=== PATIENT | male | born 1945 | race Caucasian/White ===

== ENCOUNTER 2016-06-06 09:30 | Outpatient (CLI) | payer MEDICARE, BC | END 2016-06-06 09:31 | disposition home or self-care (01) | DX: Z00.00 Encounter for general adult medical examination without abnormal findings (principal); E55.9 Vitamin D deficiency, unspecified; E78.5 Hyperlipidemia, unspecified; R73.9 Hyperglycemia, unspecified; Z79.890 Hormone replacement therapy ==

== ENCOUNTER 2016-10-13 08:26 | Outpatient (CLI) | payer MEDICARE, BC ==
[2016-10-13 11:23] LABS: CHOL/HDL RATIO 3.6 (<5.0); CHOLESTEROL 197 mg/dL; GLUCOSE 114 mg/dL (70-100); HDL CHOLESTEROL 55 mg/dL; LDL/HDL RATIO 2.4 (<3.6); TRIGLYCERIDES 60 mg/dL; VLDL CHOLESTEROL 12 mg/dL
== END 2016-10-13 08:27 | disposition home or self-care (01) ==
LOC: LAB.F 08:26
PROVIDERS: ATTEND Internal Medicine
DX: E78.5 Hyperlipidemia, unspecified (principal)
CPT/HCPCS: 36415; 80061; 82947

== ENCOUNTER 2017-09-07 16:48 | Outpatient (CLI) | payer MEDICARE, BC ==
--- NOTE | 2017-09-08 11:54 | XRAY Report ---
TWO VIEW ABDOMEN: 09/07/2017 CLINICAL INDICATION: Constipation. FINDINGS: Supine and upright views of the abdomen demonstrate no evidence of bowel obstruction. No small bowel dilatation is present. No free intraperitoneal gas is seen. No abnormal calcifications are appreciated overlying either renal shadow. IMPRESSION: NO EVIDENCE OF BOWEL OBSTRUCTION OR PERFORATION. TD: 09/08/2017 11:53
== END 2017-09-07 16:49 | disposition home or self-care (01) ==
LOC: DI 16:48
PROVIDERS: ATTEND Internal Medicine
DX: K59.00 Constipation, unspecified (principal)
CPT/HCPCS: 74019

== ENCOUNTER 2018-08-08 15:29 | Outpatient (CLI) | payer MEDICARE, BC ==
--- NOTE | 2018-08-09 10:23 | XRAY Report ---
Reason: OSTEOARTHRITIS Procedure Date: 08/08/2018 Accession Number: [id number] / [id number] Procedure: XR - Knee 2 View BILAT CPT Code: FULL RESULT: EXAMS: 1. Right Knee Radiography 2. Left Knee Radiography EXAM DATE: 08/08/2018 03:58 PM. CLINICAL HISTORY: Osteoarthritis. COMPARISON: None. TECHNIQUE: 3 views each. FINDINGS: Right Knee: Bones: Normal. No fractures or bone lesions. Joints: Small right joint effusion, no subluxation. Moderate narrowing of the medial weightbearing compartment. Soft Tissues: Normal. No soft tissue swelling. Left Knee: Bones: Normal. No fractures or bone lesions. Joints: Normal. No effusion. No subluxations. Soft Tissues: Normal. No soft tissue swelling. IMPRESSION: Moderate narrowing of the medial right weightbearing compartment with small joint effusion. RADIA
== END 2018-08-08 15:30 | disposition home or self-care (01) ==
LOC: DI 15:29
PROVIDERS: ATTEND Internal Medicine
DX: M17.0 Bilateral primary osteoarthritis of knee (principal); M25.461 Effusion, right knee
CPT/HCPCS: 73565

== ENCOUNTER 2019-03-21 10:05 | Outpatient (CLI) | payer MEDICARE, BC | END 2019-03-21 10:06 | disposition home or self-care (01) | LOC: LAB 10:05 | PROVIDERS: ATTEND Internal Medicine | DX: D72.829 Elevated white blood cell count, unspecified (principal); C91.10 Chronic lymphocytic leukemia of B-cell type not having achieved remission | CPT/HCPCS: 36415; 81599 ==

== ENCOUNTER 2021-10-05 10:26 | Outpatient (CLI) | payer MEDICARE, BC ==
--- NOTE | 2021-10-05 11:29 | SLEEP CARE CONSULTATION ---
Information from patient questionnaire entered by Marina Villa MA. I have reviewed and concur with the information entered by Marina Villa MA. This document represents the service I personally performed and the decisions made by me, Peggy Kelly ARNP. History of Present Illness Service Date and Time: 10/05/2021 1026 Reason for Visit: New patient (ONSET 09/12/21, NO PRIORS, ) Chief Complaint: reports: Unrefreshed sleep, Snoring, Excessive daytime sleepin ess, Fatigue, Other (Since CLL diagnosis in Mar 2019) Date of Onset: MAR 2019 Usual bedtime: 900 - 1000 PM Time it takes to fall asleep: FAST; few minutes Snores at night: Yes Observed to quit breathing while asleep: Yes (jagged breathing when snoring, sleeping on back) Sleeps alone due to snoring: No (rarely, but it happens) Number of times waking at night: 2-3 to urinate Reasons for waking at night: reports: Gasping for air (has felt a catch in his breath when waking up), Bathroom. denies: Choking, Snoring Toss, Turn, or Twitch while sleeping: Yes Recalls having dreams: Yes Usually gets out of bed at: [id number] Feels refreshed in the morning: Yes (sort of) Morning headache: No Sleepy or fatigued during the day: Yes Ever fallen asleep while driving: No Takes day naps: Yes (daily for about an hour) Dreams during day naps: Yes Prior sleep studies: No Additional HPI information: I had the pleasure of seeing BRITTANIE ALVARADO today regarding the possibility of him having a sleep disorder. His current complaints are unrefreshed sleep, excessive daytime sleepiness, snoring and fatigue. He has history of CLL. He was discussing his daytime fatigue with his oncologist and they felt he should have further evaluation. He states that he is always tired in the afternoons and has a history of snoring. He naps every afternoon for about an hour or less. He does not wake up to alarms and usually feels rested in the morning. He states not as "perky" in the morning as when he was younger. - Parasomnia Symptoms Ever been unable to move upon waking from sleep: No Walks in sleep: No Talks in sleep: No Ever acted out dreams in sleep: No Ever felt weak in the knees when startled or emotional: No Bothered by creepy, crawly, restless sensations in legs: No Problems with memory or concentration: Yes (memory mostly) Subjective Initial Lisle Sleepiness Scale score: 8 (09/2021) Past Medical History Past Medical History: reports: Hypertension, Impotence, Depression, Other (Chronic lymphocytic leukemia) Social History The patient's occupation is a RE. Patient is and lives in [place]. Have you smoked in the past 12 months: No Alcohol use: Yes Alcohol amount and frequency: 2 X DAILY Caffeine use: Yes Caffeine amount and frequency: 2 X DAILY Family History Family history of sleep disordered breathing: No Allergies and Home Medications Known drug allergies: No Home medication list reviewed: Yes (NKDA) Allergy and home medication list: Allergies No Known Drug Allergies Allergy (Verified 11/30/20 15:25) Medications: Losartan Naltrexone, low dose Review of Systems Weight gain over past 5 years: 5 lb Cardiovascular: reports: high blood pressure Respiratory: reports: shortness of breath Urinary: reports: frequency (2x night) Psychiatric: reports: depression (light) Ear/Nose/Throat: reports: nasal congestion (@night) Endocrine: reports: sluggishness Musculoskeletal: reports: muscle pain or cramping (cramping occasionally) Immunologic: reports: allergies to food or environment (maybe seasonal), other (runny nose) Physical Exam Vital signs obtained and entered by: Jayme VILLA CMA AAJASON Blood Pressure: 141/80 (RESP 18, PULSE 75, RIGHT) Cuff size: wrist Heart Rate: 77 O2 Saturation: 98 (N95) Height: 6 ft Weight: 205 lb 8 oz (WITH CLOTHES) Body Mass Index: 27.8 BMI Classification: Overweight Neck circumference: 15 (INCHES) Mouth and throat: narrow oropharynx Soft palate: long Hard palate: normal Uvula: normal Uvula visualization: 25% Mallampati Class III Tongue: enlarged in size with teeth courtney on lateral edges Tonsils: absent bilaterally Neck: normal w/o lymphadenopathy or thyromegaly Heart: regular rate and rhythm Lungs: clear bilaterally Impression and Plan 1. Suspected Obstructive Sleep Apnea-Hypopnea Syndrome, as suggested by a history of loud and irregular snoring, gasping or choking in sleep, unrefreshed sleep, cognitive impairment, and excessive daytime sleepiness. Narrow oropharynx and obesity are common predisposing factors for obstructive sleep apnea-hypopnea syndrome. I recommend proceeding to polysomnography to confirm the diagnosis and to assess severity. If the patient has significant sleep disordered breathing, a manual CPAP titration study will also be performed to find the optimal treatment pressure. I informed the patient of what the sleep studies involve and after some discussion, obtained agreement to proceed. The pathophysiology of obstructive sleep apnea-hypopnea syndrome was discussed with the patient and health risks of cardiovascular and cerebrovascular disease if not treated. Risks of drowsy driving discussed in detail and patient advised to avoid long distance driving and to hand assembler for puller over at the first sign of drowsiness. Patient agreed to plan. * Schedule polysomnography * Avoid long distance driving or driving when feeling sleepy. * Avoid alcohol, sedative and muscle relaxant around bedtime. * Attempt to lose weight. * Review instructions provided by trained office staff on how to prepare for the sleep study. * Return for follow-up after sleep study completed. Counseling Topics: Weight loss health impact Visit Type: In Office Time Spent with Patient (minutes): 44 Provider Statement: I spent 100% of the Face to Face Visit with the patient with greater than 50% spent counseling the patient and coordination of care.
[2021-10-05 11:30] VITALS: BP 141/80
== END 2021-10-05 10:27 | disposition home or self-care (01) ==
LOC: SC 10:26
PROVIDERS: ATTEND Nurse Practitioner Family
DX: G47.10 Hypersomnia, unspecified (principal); R06.81 Apnea, not elsewhere classified; G47.8 Other sleep disorders; R41.89 Other symptoms and signs involving cognitive functions and awareness; R06.83 Snoring
CPT/HCPCS: 99203; G0463; 99212

== ENCOUNTER 2022-06-20 09:38 | Outpatient (CLI) | payer MEDICARE, OTHER ==
[2022-06-20 10:27] LABS: BASOPHILS # (AUTO) 0.1 10^3/uL (0.0-0.1); BASOPHILS % (AUTO) 0.2 %; EOSINOPHILS # (AUTO) 0.1 10^3/uL (0.0-0.7); EOSINOPHILS % (AUTO) 0.3 %; HCT - HEMATOCRIT 39.6 % (42.0-52.0); LYMPHOCYTES # (AUTO) 15.4 10^3/uL (1.5-3.5); LYMPHOCYTES % (AUTO) 57.5 %; MEAN CORPUSCULAR HEMOGLOBIN 30.7 pg (27.0-31.0); MEAN CORPUSCULAR HGB CONC 32.8 g/dL (32.0-36.0); MEAN CORPUSCULAR VOLUME 93.4 fL (80.0-94.0); MEAN PLATELET VOLUME 10.4 fL (7.4-11.4); MONOCYTES # (AUTO) 3.3 10^3/uL (0.0-1.0); MONOCYTES % (AUTO) 12.2 %; NEUTROPHILS # (AUTO) 7.9 10^3/uL (1.5-6.6); NEUTROPHILS % (AUTO) 29.5 %; PLT - PLATELET COUNT 180 10^3/uL (130-450); RED BLOOD COUNT 4.24 10^6/uL (4.70-6.10); RED CELL DISTRIBUTION WIDTH 13.2 % (12.0-15.0); WHITE BLOOD COUNT 26.7 x10^3/uL (4.8-10.8)
[2022-06-20 10:43] LABS: ALBUMIN 3.9 g/dL (3.2-5.5); ALBUMIN/GLOBULIN RATIO 1.1 (1.0-2.2); ALKALINE PHOSPHATASE 64 IU/L (42-121); ALT ALANINE AMINOTRANSFERASE 29 IU/L (10-60); AST ASPARTATE AMINOTRANSFERASE 26 IU/L (10-42); BILIRUBIN,TOTAL 1.8 mg/dL (0.2-1.0); BUN - BLOOD UREA NITROGEN 21 mg/dL (6-20); CALCIUM 9.5 mg/dL (8.5-10.3); CARBON DIOXIDE - CO2 24 mmol/L (21-32); CHLORIDE 99 mmol/L (101-111); CHOL/HDL RATIO 3.1 (<5.0); CHOLESTEROL 173 mg/dL; CRP HIGH SENSITIVITY 55.9 mg/L; GAMMA GLUTAMYL TRANSPEPTIDASE 22 IU/L (8-55); GFR - MDRD 72 (>89); GLUCOSE 125 mg/dL (70-100); HDL CHOLESTEROL 56 mg/dL; LDL CHOLESTEROL,CALCULATED 107 mg/dL; LDL/HDL RATIO 1.9 (<3.6); POTASSIUM 4.4 mmol/L (3.5-5.0); SODIUM 135 mmol/L (135-145); TOTAL PROTEIN 7.6 g/dL (6.7-8.2); TRIGLYCERIDES 49 mg/dL; VLDL CHOLESTEROL 10 mg/dL
[2022-06-20 10:56] LABS: FREE T3 2.83 pg/mL (2.5-3.9)
[2022-06-20 11:01] LABS: FERRITIN 132.2 ng/mL (23.9-336.2)
[2022-06-20 11:08] LABS: DIFFERENTIAL COMMENT MANUAL=AUTO DIFF
[2022-06-20 12:28] LABS: ESTIMATED AVERAGE GLUCOSE 123 mg/dL (70-100); HEMOGLOBIN A1c% 5.9 % (4.27-6.07)
[2022-06-21 07:10] LABS: INSULIN 19.4 uIU/mL (2.6-24.9)
[2022-06-21 08:10] LABS: CERULOPLASMIN 29.1 mg/dL (16.0-31.0)
[2022-06-21 11:09] LABS: CYTOMEGALOVIRUS (CMV) AB IGG <0.60 U/mL (0.00-0.59); CYTOMEGALOVIRUS (CMV) AB IGM <30.0 AU/mL (0.0-29.9); EBV AB VCA IGG >600.0 U/mL (0.0-17.9); EBV AB VCA IGM <36.0 U/mL (0.0-35.9); EBV NUCLEAR ANTIGEN AB IGG <18.0 U/mL (0.0-17.9)
[2022-06-22 01:07] LABS: VITAMIN D 25-HYDROXY 58.2 ng/mL (30.0-100.0)
[2022-06-22 14:09] LABS: THYROGLOBULIN ANTIBODY <1.0 IU/mL (0.0-0.9); THYROID PEROXIDASE (TPO) AB <9 IU/mL (0-34)
[2022-06-22 19:07] LABS: COPPER SERUM OR PLASMA 133 ug/dL (69-132); ZINC PLASMA OR SERUM 80 ug/dL (44-115)
[2022-06-25 18:07] LABS: VITAMIN A SERUM 49.9 ug/dL (22.0-69.5)
[2022-06-27 15:08] LABS: REVERSE T3 SERUM 21.5 ng/dL (.)
== END 2022-06-20 09:39 | disposition home or self-care (01) ==
LOC: LAB 09:38
DX: C91.10 Chronic lymphocytic leukemia of B-cell type not having achieved remission (principal); R53.83 Other fatigue; E55.9 Vitamin D deficiency, unspecified; R79.9 Abnormal finding of blood chemistry, unspecified; E11.9 Type 2 diabetes mellitus without complications; I10 Essential (primary) hypertension; C43.9 Malignant melanoma of skin, unspecified; R41.89 Other symptoms and signs involving cognitive functions and awareness; K58.9 Irritable bowel syndrome, unspecified; E78.5 Hyperlipidemia, unspecified
CPT/HCPCS: 36415; 80053; 80061; 81599; 82306; 82390; 82525; 82542; 82728; 82777; 82977; 83036; 83090; 83525; 83615; 83721; 84305; 84443; 84481; 84482; 84590; 84630; 85025; 85379; 85384; 85651; 86141; 86376; 86644; 86645; 86664; 86665; 86800

== ENCOUNTER 2022-08-01 13:32 | Outpatient (CLI) | payer MEDICARE, OTHER | END 2022-08-01 13:33 | disposition home or self-care (01) | LOC: LAB.S 13:32 | PROVIDERS: ATTEND General Practice | DX: I10 Essential (primary) hypertension (principal); C43.9 Malignant melanoma of skin, unspecified; E11.9 Type 2 diabetes mellitus without complications | CPT/HCPCS: 36415 ==

== ENCOUNTER 2022-08-23 09:59 | Outpatient (CLI) | payer MEDICARE, OTHER ==
[2022-08-23 10:45] LABS: BASOPHILS % (AUTO) 0.2 %; EOSINOPHILS % (AUTO) 0.6 %; HCT - HEMATOCRIT 39.1 % (42.0-52.0); HGB - HEMOGLOBIN 13.1 g/dL (14.0-18.0); LYMPHOCYTES % (AUTO) 74.3 %; MEAN CORPUSCULAR HEMOGLOBIN 30.1 pg (27.0-31.0); MEAN CORPUSCULAR HGB CONC 33.5 g/dL (32.0-36.0); MEAN CORPUSCULAR VOLUME 89.9 fL (80.0-94.0); MEAN PLATELET VOLUME 11.2 fL (7.4-11.4); MONOCYTES % (AUTO) 9.5 %; NEUTROPHILS % (AUTO) 15.3 %; PLT - PLATELET COUNT 144 10^3/uL (130-450); RED BLOOD COUNT 4.35 10^6/uL (4.70-6.10); RED CELL DISTRIBUTION WIDTH 13.1 % (12.0-15.0); WHITE BLOOD COUNT 21.6 x10^3/uL (4.8-10.8)
[2022-08-23 10:53] LABS: ABNORMAL LYMPHS % (MANUAL) 0 %; BAND NEUTROPHILS % (MANUAL) 0 %
[2022-08-23 10:57] LABS: ALBUMIN 4.3 g/dL (3.2-5.5); ALBUMIN/GLOBULIN RATIO 1.5 (1.0-2.2); BILIRUBIN,TOTAL 1.1 mg/dL (0.2-1.0); CALCIUM 9.2 mg/dL (8.5-10.3); CREATININE 1.1 mg/dL (0.6-1.2); CRP HIGH SENSITIVITY 1.5 mg/L; POTASSIUM 4.5 mmol/L (3.5-5.0); TOTAL PROTEIN 7.2 g/dL (6.7-8.2)
[2022-08-23 11:09] LABS: EOSINOPHILS # (MANUAL) 0.4 10^3/uL (0-0.7); LYMPHOCYTES # (MANUAL) 17.7 10^3/uL (1.5-3.5); LYMPHOCYTES % (MANUAL) 59 %; MONOCYTES # (MANUAL) 0.2 10^3/uL (0.0-1.0); NEUTROPHILS # (MANUAL) 3.2 10^3/uL (1.5-6.6); REACTIVE LYMPHS % (MANUAL) 23 %
[2022-08-23 11:10] LABS: DIFFERENTIAL COMMENT MANUAL DIFFERENTIAL; RBC MORPHOLOGY (MULTIPLE) 1+ ANISOCYTOSIS (NORMAL)
[2022-08-23 11:16] LABS: THYROID STIMULATING HORMONE 2.41 uIU/mL (0.34-5.60)
[2022-08-23 11:18] LABS: FREE T4 (FREE THYROXINE) 0.89 ng/dL (0.58-1.64)
[2022-08-23 11:21] LABS: FERRITIN 130.8 ng/mL (23.9-336.2)
[2022-08-23 11:38] LABS: ESTIMATED AVERAGE GLUCOSE 111 mg/dL (70-100); HEMOGLOBIN A1c% 5.5 % (4.27-6.07)
[2022-08-24 04:08] LABS: VITAMIN D 25-HYDROXY 56.8 ng/mL (30.0-100.0)
[2022-08-24 07:10] LABS: INSULIN 12.3 uIU/mL (2.6-24.9)
[2022-08-24 08:10] LABS: CERULOPLASMIN 23.9 mg/dL (16.0-31.0)
[2022-08-31 12:09] LABS: REVERSE T3 SERUM 25.8 ng/dL (.)
[2022-09-01 19:07] LABS: 1,25-DIHYDROXY VITAMIN D-2 <10 pg/mL (.); 1,25-DIHYDROXY VITAMIN D-3 26 pg/mL (.); TOTAL 1,25-DIHYDROXYVITAMIN D 27 pg/mL (.)
[2022-09-03 14:08] LABS: VITAMIN A SERUM 44.4 ug/dL (22.0-69.5)
== END 2022-08-23 10:00 | disposition home or self-care (01) ==
LOC: LAB 09:59
PROVIDERS: ATTEND General Practice
DX: C91.10 Chronic lymphocytic leukemia of B-cell type not having achieved remission (principal); I10 Essential (primary) hypertension; C43.9 Malignant melanoma of skin, unspecified; R41.89 Other symptoms and signs involving cognitive functions and awareness; K58.9 Irritable bowel syndrome, unspecified; E78.5 Hyperlipidemia, unspecified; D68.9 Coagulation defect, unspecified; R53.83 Other fatigue; E55.9 Vitamin D deficiency, unspecified; R79.9 Abnormal finding of blood chemistry, unspecified; E11.9 Type 2 diabetes mellitus without complications
CPT/HCPCS: 36415; 80053; 81599; 82306; 82390; 82525; 82652; 82728; 82977; 83036; 83090; 83525; 83615; 83625; 84305; 84439; 84443; 84482; 84590; 84630; 85025; 85379; 85384; 85651; 86141

== ENCOUNTER 2022-09-30 13:54 | Outpatient (CLI) | payer MEDICARE, OTHER ==
[2022-09-30 14:23] LABS: BASOPHILS % (AUTO) 0.2 %; EOSINOPHILS % (AUTO) 0.4 %; HCT - HEMATOCRIT 38.6 % (42.0-52.0); HGB - HEMOGLOBIN 12.7 g/dL (14.0-18.0); LYMPHOCYTES % (AUTO) 63.2 %; MEAN CORPUSCULAR HGB CONC 32.9 g/dL (32.0-36.0); MEAN PLATELET VOLUME 10.8 fL (7.4-11.4); MONOCYTES % (AUTO) 13.6 %; NEUTROPHILS % (AUTO) 22.4 %; PLT - PLATELET COUNT 194 10^3/uL (130-450); RED BLOOD COUNT 4.24 10^6/uL (4.70-6.10); RED CELL DISTRIBUTION WIDTH 13.3 % (12.0-15.0); WHITE BLOOD COUNT 22.9 x10^3/uL (4.8-10.8)
[2022-09-30 14:33] LABS: ALBUMIN 4.3 g/dL (3.2-5.5); ALBUMIN/GLOBULIN RATIO 1.3 (1.0-2.2); BILIRUBIN,TOTAL 1.1 mg/dL (0.2-1.0); CALCIUM 9.4 mg/dL (8.5-10.3); POTASSIUM 4.6 mmol/L (3.5-5.0); TOTAL PROTEIN 7.6 g/dL (6.7-8.2)
[2022-09-30 14:37] LABS: ABNORMAL LYMPHS % (MANUAL) 0 %; BAND NEUTROPHILS % (MANUAL) 0 %
[2022-09-30 14:46] LABS: T4 (THYROXINE) 6.98 ug/dL (6.09-12.23)
[2022-09-30 14:50] LABS: THYROID STIMULATING HORMONE 2.37 uIU/mL (0.34-5.60)
[2022-09-30 14:53] LABS: BASOPHILS # (MANUAL) 0.2 10^3/uL (0-0.1); BASOPHILS % (MANUAL) 1 %; DIFFERENTIAL COMMENT MANUAL DIFFERENTIAL; LYMPHOCYTES # (MANUAL) 15.8 10^3/uL (1.5-3.5); LYMPHOCYTES % (MANUAL) 69 %; MONOCYTES # (MANUAL) 2.5 10^3/uL (0.0-1.0); NEUTROPHILS # (MANUAL) 4.4 10^3/uL (1.5-6.6); PLATELET ESTIMATE, MANUAL NORMAL (130-450,000) (NORMAL); PLATELET MORPHOLOGY NORMAL APPEARANCE (NORMAL); RBC MORPHOLOGY (MULTIPLE) NORMAL APPEARANCE (NORMAL)
[2022-09-30 21:14] LABS: ESTIMATED AVERAGE GLUCOSE 114 mg/dL (70-100); HEMOGLOBIN A1c% 5.6 % (4.27-6.07)
[2022-10-01 06:10] LABS: CERULOPLASMIN 26.2 mg/dL (16.0-31.0)
[2022-10-01 07:09] LABS: INSULIN 13.2 uIU/mL (2.6-24.9)
[2022-10-11 22:07] LABS: REVERSE T3 SERUM 24.7 ng/dL (.)
== END 2022-09-30 13:55 | disposition home or self-care (01) ==
LOC: LAB 13:54
PROVIDERS: ATTEND General Practice
DX: E11.9 Type 2 diabetes mellitus without complications (principal); C91.10 Chronic lymphocytic leukemia of B-cell type not having achieved remission; C43.9 Malignant melanoma of skin, unspecified; R53.83 Other fatigue; E55.9 Vitamin D deficiency, unspecified; R79.9 Abnormal finding of blood chemistry, unspecified; I10 Essential (primary) hypertension; R41.89 Other symptoms and signs involving cognitive functions and awareness; E78.5 Hyperlipidemia, unspecified; D68.9 Coagulation defect, unspecified; K58.9 Irritable bowel syndrome, unspecified
CPT/HCPCS: 36415; 80053; 81599; 82306; 82390; 82525; 82777; 82977; 83036; 83090; 83525; 83615; 84305; 84436; 84443; 84480; 84482; 84630; 85025; 85379; 85384; 85651; 86141

== ENCOUNTER 2022-10-26 13:28 | Outpatient (CLI) | payer MEDICARE, OTHER ==
--- NOTE | 2022-10-26 13:25 | SLEEP CARE CONSULTATION ---
Information from patient questionnaire entered by Jeannine Myers. I have reviewed and concur with the information entered by Jeannine Myers. This document represents the service I personally performed and the decisions made by me, Peggy Kelly ARNP. History of Present Illness Service Date and Time: 10/26/2022 1300 Reason for follow up: other (F/U SLEEP STUDY NEVER DONE) Prior sleep studies: No HPI additional information: I had the pleasure of seeing BRITTANIE ALVARADO via telehealth visit today regarding the possibility of him having a sleep disorder. He was last seen in 09/2021 and a sleep study was ordered but not completed. He has a history of hypertension and depression. His current complaints are unrefreshed sleep, snoring, fatigue and excessive daytime sleepiness. The patient tells me that he normally goes to bed around 9:30 pm, and it takes him approximately few minutes to fall asleep. He has been told that he snores irregularly at night. He has not been observed to stop breathing in his sleep. He sometimes feels there is a catch in his breath. His bed partner can still sleep in the same bed. He can recall waking up on the average of 2-3 times during the night. Most of the time he wakes up because of bathroom needs. He has not awakened for his own snoring, choking, and having to gasp for air. There is not a lot of tossing and turning in his sleep. Generally he can recall having dreams. He usually wakes up at 07-0730 and feels refreshed. He usually does not have a morning headache. During the day he complains of feeling sleepy and fatigued. He has never fallen asleep while driving nor has any accident due to sleepiness. He usually naps for about 60 minutes during the day. If he naps, upon falling asleep during the day he admits to having vivid dreams. There is no somniloquy (sleep talking) or somnambulism (sleep walking). He has never experienced sleep paralysis, cataplexy. He has restless legs at night and he has been prescribed Gabapentin. He denies having impaired concentration during the day. Sleep Study - Results Prior sleep studies: No Subjective Initial Decker Sleepiness Scale score: 8 (09/2021) Current Decker Sleepiness Scale score: 3 Allergies and Home Medications Known drug allergies: No Drug allergies reviewed: Yes Home medication list reviewed: Yes (Gabapentin) Allergy and home medication list: Allergies No Known Drug Allergies Allergy (Verified 10/25/22 22:00) Review of Systems Review of systems same as previous: No (RLS) Physical Exam Vital signs obtained and entered by: Peggy Husain NP Height: 6 ft Weight: 189 lb (per pt) Body Mass Index: 25.6 BMI Classification: Overweight Impression and Plan 1. Suspected Obstructive Sleep Apnea-Hypopnea Syndrome, as suggested by a history of loud and irregular snoring, unrefreshed sleep, and excessive daytime sleepiness. I recommend proceeding to polysomnography to confirm the diagnosis and to assess severity. If the patient has significant sleep disordered breathing, a manual CPAP titration study will also be performed to find the optimal treatment pressure. I informed the patient of what the sleep studies involve and after some discussion, obtained agreement to proceed. The pathophysiology of obstructive sleep apnea-hypopnea syndrome was discussed with the patient and health risks of cardiovascular and cerebrovascular disease if not treated. Risks of drowsy driving discussed in detail and patient advised to avoid long distance driving and to pull through hooker at the first sign of drowsiness. Patient agreed to plan. * Schedule polysomnography +- manual CPAP titration study and return in 1-2 weeks after the study to discuss result and initiate therapy. * Avoid long distance driving or driving when feeling sleepy. * Avoid alcohol, sedative and muscle relaxant around bedtime. * Attempt to lose weight. * Review instructions provided by trained office staff on how to prepare for the sleep study. * Return for follow-up after sleep study completed. Counseling Topics: Weight loss health impact Visit Type: Telehealth Phone Video Type: [facility] Patient Location: Home Location of Provider: Office Patient agrees and consents to this telehealth visit type: Yes Patient agrees to have their insurance billed: Yes Time Spent with Patient (minutes): 24 Provider Statement: I spent 100% of the Telehealth Phone Call with the patient with greater than 50% spent counseling the patient and coordination of care.
== END 2022-10-26 13:29 | disposition home or self-care (01) ==
LOC: SC 13:28
PROVIDERS: ATTEND Nurse Practitioner Family
DX: G47.10 Hypersomnia, unspecified (principal); R06.83 Snoring; G47.8 Other sleep disorders; R53.83 Other fatigue; I10 Essential (primary) hypertension; E66.3 Overweight; Z68.25 Body mass index [BMI] 25.0-25.9, adult

== ENCOUNTER 2022-11-16 19:16 | Outpatient (CLI) | payer MEDICARE, OTHER | END 2022-11-16 19:17 | disposition home or self-care (01) | LOC: SC 19:16 | PROVIDERS: ATTEND Nurse Practitioner Family | DX: G47.33 Obstructive sleep apnea (adult) (pediatric) (principal); G47.61 Periodic limb movement disorder | CPT/HCPCS: 95810 ==

== ENCOUNTER 2022-11-22 13:36 | Outpatient (CLI) | payer MEDICARE, OTHER ==
--- NOTE | 2022-11-22 13:34 | SLEEP CARE CONSULTATION ---
Information from patient questionnaire entered by Jeannine Myers. I have reviewed and concur with the information entered by Jeannine Myers. This document represents the service I personally performed and the decisions made by me, Peggy Kelly ARNP. History of Present Illness Service Date and Time: 11/22/2022 1300 Accompanied by: Spouse (via [employer]) Initial Cardington Sleepiness Scale score: 8 (09/2021) Current Cardington Sleepiness Scale score: 3 (11/22/22) Additional HPI information: BRITTANIE ALVARADO returns via video telehealth vist for follow up and results of the recently performed polysomnography. His sleep study showed moderate obstructive sleep apnea with an average AHI of 25.7 and marcia oxygen saturation of 79%. He also had mild periodic leg movements of sleep. I explained the pathophysiology behind obstructive sleep apnea. We then spent quite a bit of time discussing different treatment options. For mild obstructive sleep apnea, surgery and oral appliance are alternatives to nasal CPAP therapy but in moderate or severe cases, nasal CPAP is the most effective and reliable treatment. I reviewed the impact of weight changes on sleep apnea and strongly recommended losing weight. After some discussion, the patient opted to go with the nasal CPAP therapy. Nasal autoCPAP set at 4-15 cmH20 will be ordered with rationale explained. A manual titration study will be ordered if unable to find optimal pressure with office adjustments. I explained how CPAP machine works and what to expect when using the machine. Using CPAP every night in order to get used to it was emphasized. Patient a dvised to put CPAP mask on before getting into bed so as not to fall asleep without CPAP. To assist acclimation to CPAP use, it could also be used for a short time during day while reading or watching TV. The patient was instructed to call the CPAP supplier to discuss any mechanical problem that may occur. If the mask given is uncomfortable or is difficult to keep on through the night even with adjustment, contact the CPAP supplier as many will replace with another mask style if notified before 30 days. If snoring or perceives is not getting enough air or too much air from the machine, notify this office. Patient was cautioned about risks of drowsy driving until sleepiness symptoms resolve. Sleep Study - Results Type of Sleep Study: Polysomnography (COMPLETED 11/16/22) Prior sleep studies: No Polysomnography/Home Sleep Study results: IMPRESSION: The quality of the study is good. The patient had normal sleep efficiency. The sleep architecture was abnormal for sleep fragmentation and lack of slow wave sleep (N3). Respiratory monitoring showed moderate obstructive sleep apnea-hypopnea (AHI = 25.7) associated with frequent arousals, oxyhemoglobin desaturation and moderate hypoxia (marcia oxygen saturation of 79%). The patient only slept supine during this study (supine AHI = 25.7; non-supine = 0.00). Snore was loud in intensity. There was mild periodic leg movement of sleep not contributing to the sleep fragmentation. Cardiac rhythm was normal sinus rhythm without significant arrhythmia. No abnormal behavior (parasomnia) observed during the night. Allergies and Home Medications Known drug allergies: No Drug allergies reviewed: Yes Home medication list reviewed: Yes (no changes) Allergy and home medication list: Allergies No Known Drug Allergies Allergy (Verified 11/22/22 09:10) Review of Systems Review of systems same as previous: Yes (no changes) Physical Exam Vital signs obtained and entered by: JEANNINE Ho MA Height: 6 ft (PER PT) Weight: 188 lb (PER PT) Body Mass Index: 25.4 BMI Classification: Overweight Impression and Plan 1. Obstructive Sleep Apnea-Hypopnea Syndrome, moderate, with lowest oxygen saturation of 79%. Obviously this is the cause of the patients symptoms of unrefreshed sleep, and excessive daytime sleepiness. Positive pressure therapy could benefit hypertension and depression. As mentioned above, the patient will be started on nasal autoCPAP therapy with pressure set at 4-15 cmH2O. A manual titration study will be completed if unable to find optimal treatment pressure with office adjustments. Compliance guidelines also reviewed. A copy of com pliance guidelines will be given for reference at check out. 2. Hypoxemia, mild, with a marcia oxygen saturation of 79% and 6.2 minutes spent under 90%. His baseline oxygen saturation was normal with an average oxygen saturation of 96%. * Nasal auto CPAP therapy, pressure at 4-15 cm H2O. * Avoid alcohol consumption near bedtime. * Avoid supine sleep until using CPAP. * The patient is again cautioned about driving until sleepiness completely resolves. * Return one month after CPAP obtained. I will assess response to therapy and compliance at that time. Visit Type: Telehealth Video Video Type: [employer] Patient Location: Home Other Participants: Spouse/Significant Other Location of Provider: Office Patient agrees and consents to this telehealth visit type: Yes Patient agrees to have their insurance billed: Yes Time Spent with Patient (minutes): 32 Provider Statement: I spent 100% of the Telehealth Video Call with the patient with greater than 50% spent counseling the patient and coordination of care.
== END 2022-11-22 13:37 | disposition home or self-care (01) ==
LOC: SC 13:36
PROVIDERS: ATTEND Nurse Practitioner Family
DX: G47.33 Obstructive sleep apnea (adult) (pediatric) (principal); R09.02 Hypoxemia; E66.3 Overweight; Z68.25 Body mass index [BMI] 25.0-25.9, adult

== ENCOUNTER 2023-01-06 10:47 | Outpatient (CLI) | payer MEDICARE, OTHER ==
[2023-01-06 11:09] LABS: BASOPHILS # (AUTO) 0.1 10^3/uL (0.0-0.1); BASOPHILS % (AUTO) 0.2 %; EOSINOPHILS # (AUTO) 0.1 10^3/uL (0.0-0.7); EOSINOPHILS % (AUTO) 0.3 %; HCT - HEMATOCRIT 37.6 % (42.0-52.0); HGB - HEMOGLOBIN 12.4 g/dL (14.0-18.0); LYMPHOCYTES # (AUTO) 13.1 10^3/uL (1.5-3.5); LYMPHOCYTES % (AUTO) 56.8 %; MEAN CORPUSCULAR HEMOGLOBIN 30.4 pg (27.0-31.0); MEAN CORPUSCULAR VOLUME 92.2 fL (80.0-94.0); MEAN PLATELET VOLUME 9.9 fL (7.4-11.4); MONOCYTES # (AUTO) 3.5 10^3/uL (0.0-1.0); MONOCYTES % (AUTO) 15.4 %; NEUTROPHILS # (AUTO) 6.3 10^3/uL (1.5-6.6); NEUTROPHILS % (AUTO) 27.1 %; PLT - PLATELET COUNT 152 10^3/uL (130-450); RED BLOOD COUNT 4.08 10^6/uL (4.70-6.10); RED CELL DISTRIBUTION WIDTH 13.9 % (12.0-15.0)
[2023-01-06 11:10] LABS: SLIDE REVIEW? Indicated
[2023-01-06 11:24] LABS: ALBUMIN 4.3 g/dL (3.2-5.5); ALBUMIN/GLOBULIN RATIO 1.6 (1.0-2.2); BILIRUBIN,TOTAL 0.9 mg/dL (0.2-1.0); CALCIUM 9.5 mg/dL (8.5-10.3); CRP HIGH SENSITIVITY 17.23 mg/L; POTASSIUM 4.7 mmol/L (3.5-4.5)
[2023-01-06 12:11] LABS: DIFFERENTIAL COMMENT MANUAL=AUTO DIFF; PLATELET ESTIMATE, MANUAL NORMAL (130-450,000) (NORMAL); PLATELET MORPHOLOGY NORMAL APPEARANCE (NORMAL); RBC MORPHOLOGY (MULTIPLE) NORMAL APPEARANCE (NORMAL); WBC MORPHOLOGY (MULTIPLE) NORMAL APPEARANCE (NORMAL)
[2023-01-10 13:10] LABS: ALK PHOS BONE FRACTION 21 % (12-68); ALK PHOS INTESTINAL FRACTION 1 % (0-18); ALK PHOS LIVER FRACTION 78 % (13-88); ALKALINE PHOSPHATASE TOTAL 67 IU/L (44-121)
== END 2023-01-06 10:48 | disposition home or self-care (01) ==
LOC: LAB 10:47
PROVIDERS: ATTEND General Practice
DX: R53.83 Other fatigue (principal); E55.9 Vitamin D deficiency, unspecified; R79.9 Abnormal finding of blood chemistry, unspecified; E11.9 Type 2 diabetes mellitus without complications; C91.10 Chronic lymphocytic leukemia of B-cell type not having achieved remission; I10 Essential (primary) hypertension; C43.9 Malignant melanoma of skin, unspecified; R41.89 Other symptoms and signs involving cognitive functions and awareness; K58.9 Irritable bowel syndrome, unspecified; E78.5 Hyperlipidemia, unspecified; D68.9 Coagulation defect, unspecified
CPT/HCPCS: 36415; 80053; 81599; 83615; 83625; 84075; 84080; 85025; 85651; 86141

== ENCOUNTER 2023-01-24 13:29 | Outpatient (CLI) | payer MEDICARE, OTHER ==
[2023-01-24] MEDS ORDERED: ALBUTEROL 1 PUFF INH STA (17:38)
== END 2023-01-24 13:30 | disposition home or self-care (01) ==
LOC: RT 13:29
PROVIDERS: ATTEND Internal Medicine
DX: R06.09 Other forms of dyspnea (principal); C91.10 Chronic lymphocytic leukemia of B-cell type not having achieved remission; D63.0 Anemia in neoplastic disease
CPT/HCPCS: 94060; 94729

== ENCOUNTER 2023-02-14 08:56 | Outpatient (CLI) | payer MEDICARE, OTHER ==
--- NOTE | 2023-02-14 09:07 | CARDIAC PROCEDURE NOTE ---
Stress Test Report Service Date: 02/14/23 Service Time: 09:30 Ordering Provider: Antonette Toledo Indication for Test: Assess exertional dyspnea. 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 For a period of time, somewhere between several months and a few years, he has been experiencing a decrease in exercise tolerance with increased exertional dyspnea. He walks some in his neighborhood and on a treadmill at his local athletic club, with variable thre shold for symptom onset. He denies other symptoms of possible cardiovascular origin, such as chest discomfort, palpitations, lightheadedness and peripheral edema. Recent blood indices (01/30/2023) included a white blood cell count of 23.9, with an increased percentage of lymphocytes (16.5 with ULN 3.5); hemoglobin and hematocrit were respectively 12.8 and 39. Thus it did not appear that anemia was a significant contributor to his exertional symptoms and recommendations were made for further cardiac and pulmonary evaluation. About 3 weeks ago he underwent full pulmonary function testing, that was notable for a mild restrictive pattern and reduction of DLCO to about 50% predicted for age, potentially indicating loss of functional alveolar capillary surface. He had expressed concern to his PCP for toleration of a planned trip to [place], [place], which he recently took, visiting friends living at an altitude of approximately 7000 feet. He was able to purchase some [id number] "oxygen canisters" that he used periodically with the sense of modest benefit, though he was not especially active physically while visiting there. He underwent evaluation for obstructive sleep apnea earlier this spring that was positive and he has been using CPAP for approximately 6 weeks now, which he says is "helping a lot". His family sees him as more alert and he feels less sleepy and reduced need for napping during the day (a single 1 hour nap at present). He has not yet had a data download to evaluate the efficacy of his CPAP treatment. Cardiac Risk Factors: Positive for hypertension (treated for about 4 years) and family history of ASCVD events (father with history of TIA/CVA). Minor positive risk factors include ANDERSON (for which CPAP was recently initiated) and impaired fasting glucose. Negative for history of tobacco smoking and hyperlipidemia (Lipid panel in 12/04: TChol 167, HDLc 55, TG 31, calc LDLc 101). Type of Stress Test: ETT with Echocardiography Procedure: -Exercise Treadmill Test- After signing informed consent, the patient underwent echo imaging at rest and then performed treadmill exercise using a Leo protocol. The patient exercised for 5 minutes 5 seconds and achieved a peak heart rate of 146 (102 percent predicted maximum heart rate for age), and an estimated workload of 7.1 METS. The test was terminated due to fatigue/shortness of breath with the appearance of unsteadiness that seemed to indicate the need to stop. Resting heart rate: 64 Peak heart rate: 146 Normal response to exercise. Resting BP: 147/72 Peak BP: 204/62 Elevated resting systolic BP, with normal response of systolic and diastolic BPs to exercise. Rhythm during exercise: Sinus rhythm throughout with a single PVC recorded. Symptoms: He had slowly progressive increase in dyspnea, without a precipitous increase. Although there was an intermittent signal of decreasing oxygen saturation with the EKG console's saturation monitor, periodic evaluation with a second monitor did NOT confirm a drop to <94%. EKG at rest showed normal sinus rhythm, normal in all aspects. EKG at peak stress showed J-point depression with upsloping ST segments, NOT meeting diagnostic EKG criteria for ischemia. In Recovery heart rate rapidly/normally decreased towards baseline, with a slower decline in BP (164/75 at 9:00). Echo imaging, performed at rest and with stress, will be reported separately. Sridhar Whitlock MD, was present throughout this treadmill stress study and supervised it in its entirety. Summary: 1) Exercise tolerance was moderately reduced for age and sex as evidenced by BRADLY of 12%. 2) Normal resting EKG. 3) Adequate level of exercise was achieved on this treadmill stress test. 4) Mildly elevated resting systolic BP with normal BP response to exercise. 5) No ischemic changes by EKG criteria were seen at peak stress. 6) Echo image interpretation reveals normal left ventricular size, wall thickness and systolic function, with appropriate hyperdynamic augmentation of all segments with exercise, indicating no evidence of prior infarct or inducible ischemia. On baseline/screening study there was mild elevation of estimated pulmonary artery systolic pressure seen with normal CVP, and there were no significant valvular abnormalities detected. See separate report for more details. Conclusions and Recommendations: 1) There was no symptom, EKG or echo evidence of inducible cardiac ischemia as a contributor to the patient's moderate exertional dyspnea and decreased exercise time. 2) Given his early favorable response to CPAP treatment he was encouraged to continue its use as close as possible to all night every night. 3) Given no evidence for inducible ischemia, nor for exertional oxygen desaturation, he is encouraged to remain active, which should not entail significant risk. 4) In view of his mild restrictive spirometry pattern and reduced DLCO I recommended to the patient that he undergo formal Pulmonary evaluation, either through the [facility] or [facility], hopefully to better discern the respective roles of his CLL and apparently mild restrictive/interstitial lung disease to his exertional dyspnea.
[2023-02-14 11:12] LABS: BASOPHILS % (AUTO) 0.2 %; EOSINOPHILS # (AUTO) 0.1 10^3/uL (0.0-0.7); EOSINOPHILS % (AUTO) 0.3 %; HCT - HEMATOCRIT 39.4 % (42.0-52.0); LYMPHOCYTES # (AUTO) 15.5 10^3/uL (1.5-3.5); LYMPHOCYTES % (AUTO) 71.1 %; MEAN CORPUSCULAR VOLUME 93.8 fL (80.0-94.0); MEAN PLATELET VOLUME 11.1 fL (7.4-11.4); MONOCYTES # (AUTO) 2.6 10^3/uL (0.0-1.0); MONOCYTES % (AUTO) 12.1 %; NEUTROPHILS # (AUTO) 3.5 10^3/uL (1.5-6.6); NEUTROPHILS % (AUTO) 16.2 %; PLT - PLATELET COUNT 149 10^3/uL (130-450); RED CELL DISTRIBUTION WIDTH 14.3 % (12.0-15.0); WHITE BLOOD COUNT 21.7 x10^3/uL (4.8-10.8)
[2023-02-14 11:19] LABS: ALBUMIN 4.8 g/dL (3.2-5.5); ALBUMIN/GLOBULIN RATIO 1.9 (1.0-2.2); ALKALINE PHOSPHATASE 56 IU/L (42-121); ALT ALANINE AMINOTRANSFERASE 20 IU/L (10-60); AST ASPARTATE AMINOTRANSFERASE 22 IU/L (10-42); BILIRUBIN,TOTAL 1.4 mg/dL (0.2-1.0); BUN - BLOOD UREA NITROGEN 23 mg/dL (6-20); CALCIUM 9.7 mg/dL (8.5-10.3); CARBON DIOXIDE - CO2 26 mmol/L (21-32); CHLORIDE 99 mmol/L (101-111); CHOL/HDL RATIO 2.8 (<5.0); CHOLESTEROL 193 mg/dL; GAMMA GLUTAMYL TRANSPEPTIDASE 15 IU/L (9-64); GFR - MDRD 72 (>89); GLUCOSE 106 mg/dL (74-104); HDL CHOLESTEROL 70 mg/dL; LDL CHOLESTEROL,CALCULATED 106 mg/dL; LDL/HDL RATIO 1.5 (<3.6); POTASSIUM 4.2 mmol/L (3.5-4.5); SODIUM 134 mmol/L (135-145); TOTAL PROTEIN 7.3 g/dL (6.4-8.9); TRIGLYCERIDES 84 mg/dL (48-352); VLDL CHOLESTEROL 17 mg/dL
[2023-02-14 11:33] LABS: T3 UPTAKE 40 % (32-48)
[2023-02-14 11:35] LABS: THYROID STIMULATING HORMONE 2.31 uIU/mL (0.34-5.60)
[2023-02-14 11:42] LABS: FERRITIN 69.3 ng/mL (23.9-336.2)
[2023-02-14 12:20] LABS: ESTIMATED AVERAGE GLUCOSE 108 mg/dL (70-100); HEMOGLOBIN A1c% 5.4 % (4.27-6.07)
[2023-02-14 13:21] LABS: DIFFERENTIAL COMMENT MANUAL=AUTO DIFF
[2023-02-14 13:22] LABS: RBC MORPHOLOGY (MULTIPLE) NORMAL APPEARANCE (NORMAL)
[2023-02-14 13:25] LABS: PLATELET MORPHOLOGY NORMAL APPEARANCE (NORMAL)
[2023-02-15 04:09] LABS: INSULIN 11.4 uIU/mL (2.6-24.9)
[2023-02-15 05:13] LABS: CERULOPLASMIN 25.2 mg/dL (16.0-31.0)
[2023-02-15 06:11] LABS: CYTOMEGALOVIRUS (CMV) AB IGG <0.60 U/mL (0.00-0.59); CYTOMEGALOVIRUS (CMV) AB IGM <30.0 AU/mL (0.0-29.9)
[2023-02-15 09:10] LABS: EBV AB VCA IGM <36.0 U/mL (0.0-35.9)
[2023-02-15 19:07] LABS: COPPER SERUM OR PLASMA 107 ug/dL (69-132); ZINC PLASMA OR SERUM 77 ug/dL (44-115)
== END 2023-02-14 08:57 | disposition home or self-care (01) ==
LOC: DI 08:56
PROVIDERS: ATTEND Internal Medicine
DX: R06.09 Other forms of dyspnea (principal); D63.0 Anemia in neoplastic disease; C91.10 Chronic lymphocytic leukemia of B-cell type not having achieved remission; R53.83 Other fatigue; E55.9 Vitamin D deficiency, unspecified; B27.90 Infectious mononucleosis, unspecified without complication; I10 Essential (primary) hypertension; C43.9 Malignant melanoma of skin, unspecified; R41.89 Other symptoms and signs involving cognitive functions and awareness; E78.5 Hyperlipidemia, unspecified; D68.9 Coagulation defect, unspecified; Z82.49 Family history of ischemic heart disease and other diseases of the circulatory system; G47.33 Obstructive sleep apnea (adult) (pediatric); E11.65 Type 2 diabetes mellitus with hyperglycemia
CPT/HCPCS: 36415; 80053; 80061; 81599; 82306; 82390; 82525; 82728; 82977; 83036; 83090; 83525; 83615; 83721; 84305; 84436; 84443; 84479; 84481; 84590; 84630; 85025; 85379; 85384; 85651; 86141; 86644; 86645; 86663; 86664; 86665; 93350

== ENCOUNTER 2023-02-17 12:47 | Outpatient (CLI) | payer MEDICARE, OTHER ==
--- NOTE | 2023-02-17 13:30 | Sleep Patient Instructions ---
Sleep Center Visit Summary - Patient Visit Information Reason for Visit: First compliance visit with PAP therapy - Patient Instructions Additional Instructions: You were here for follow up of CPAP therapy. You will be continued on CPAP therapy with pressure at 10-14 cmH2O. Please let us know if the pressure change is uncomfortable and we can make further adjustments of the pressure. You should follow up with sleep care in 1-2 months. You may contact us sooner for any questions or concerns. - Clinic Information Contact: [facility] [address] [place] [address] [email or web address] T: [phone]
--- NOTE | 2023-02-17 13:36 | SLEEP CARE CONSULTATION ---
Information from patient questionnaire entered by Mirella Myers. I have reviewed and concur with the information entered by Mirella Myers. This document represents the service I personally performed and the decisions made by , Peggy Kelly ARNP. History of Present Illness Service Date and Time: 02/17/2023 1247 Previous diagnosis: Moderate, Obstructive Sleep Apnea-Hypopnea Syndrome AHI: 25.7 (in 11/2022) Reason for follow up: first compliance (SET UP 01/03/23) Equipment type: CPAP (ResMed Airsense 11, s/u 12/2022) Equipment obtained from: [employer] Mask style: Nasal Mask brand: Resmed (AirTouch N20, medium cushion) Backup mask available: No (will keep old mask when replaced) Prior sleep studies: No Type of Sleep Study: Polysomnography (COMPLETED 11/16/22) HPI additional information: BRITTANIE ALVARADO was diagnosed to have moderate, AHI 25.7, obstructive sleep apnea- hypopnea syndrome and returned today for CPAP therapy first compliance follow- up. Sleep Study - Results Type of Sleep Study: Polysomnography (COMPLETED 11/16/22) Prior sleep studies: No CPAP Compliance Data - Data Reviewed with Patient Average duration of nightly device use: 9 HRS 9 MINS Compliance rate %: 95 (01/03/23-02/14/23; 41/43 days used) Current pressure setting (cmH2O): 4-15 (median 5.8, avg 9.7, max 11.8) Average residual AHI: 4.0 Central apnea: 1.6 Obstructive apnea: 2 Hypopnea: 0.2 Average large leak: 0 L/min Subjective Patient concerns: reports: condensation in mask/hose (litte). denies: aerophagia, mask discomfort, air blowing in eyes, mask leak noise, nasal congestion, dry mouth, nose, throat, epistaxis Observed to snore while using device: No Current pressure setting perceived as: comfortable On therapy, patient: reports: sleeping better, awakening more refreshed, being more awake and alert during the day, more rested overall. denies: drowsiness while driving Initial [place] Sleepiness Scale score: 8 (09/2021) Current [place] Sleepiness Scale score: 4 (02/17/23) Allergies and Home Medications Known drug allergies: No Drug allergies reviewed: Yes Home medication list reviewed: Yes (gabapentin and losartan) Allergy and home medication list: Allergies No Known Drug Allergies Allergy (Verified 02/16/23 16:02) Review of Systems Review of systems same as previous: Yes (NO CHANGE) Physical Exam Vital signs obtained and entered by: MIRELLA Ho MA Blood Pressure: 124/62 (LEFT ARM) Cuff size: regular Heart Rate: 68 O2 Saturation: 98 Height: 6 ft (PER PT) Weight: 209 lb 6.4 oz Body Mass Index: 28.3 BMI Classification: Overweight Impression and Plan 1. Obstructive Sleep Apnea-Hypopnea Syndrome, moderate, with good treatment compliance and good apnea control. On CPAP therapy, the patient has better sleep quality and is more rested overall. He has noted more energy during the day but still likes his afternoon nap for an hour. I advised him to use the CPAP when napping too. He voiced understanding. The patients pressure will be changed to autoCPAP 10-14 cmH20 to reflect pressure being used. Patient advised to contact me if pressure change is uncomfortable so that it can be adjusted. Goals for apnea control discussed. Patient's apnea severity and rationale for treatment to reduce apnea, improve sleep quality and reduce cardiovascular and cerebrovascular events was reviewed. I also reviewed the benefit of consistent device use of CPAP for hypertension and depression. 2. Overweight, unspecified. Currently patients BMI is 28.3. Obesity increases the risk of apnea, CPAP pressure requirements and overall health risks especially cardiovascular and diabetes. Thus patient is advised to lose weight. * Change auto CPAP pressure to 10-14 cmH2O * Notify me if snoring with mask or feeling that the pressure is too much or too little * Attempt to lose weight * Call this office if any problems using CPAP * Return for follow up in 1-2 months, or sooner if concerns arise Counseling Topics: Spare mask, Weight loss health impact Follow up with Sleep Care in: 1-2 months Visit Type: In Office Time Spent with Patient (minutes): 29 Provider Statement: I spent 100% of the Face to Face Visit with the patient with greater than 50% spent counseling the patient and coordination of care.
[2023-02-17 14:00] VITALS: BP 124/62; O2SAT 98
== END 2023-02-17 12:48 | disposition home or self-care (01) ==
LOC: SC 12:47
PROVIDERS: ATTEND Nurse Practitioner Family
DX: G47.33 Obstructive sleep apnea (adult) (pediatric) (principal); E66.3 Overweight; Z68.28 Body mass index [BMI] 28.0-28.9, adult
CPT/HCPCS: 99213; G0463; 99212

== ENCOUNTER 2023-03-20 09:45 | Outpatient (CLI) | payer MEDICARE, OTHER ==
[2023-03-20 10:32] LABS: ESTIMATED AVERAGE GLUCOSE 97 mg/dL (70-100)
[2023-03-20 10:34] LABS: BASOPHILS % (AUTO) 0.3 %; EOSINOPHILS % (AUTO) 0.4 %; HCT - HEMATOCRIT 36.9 % (42.0-52.0); LYMPHOCYTES % (AUTO) 68.4 %; MEAN CORPUSCULAR HEMOGLOBIN 30.8 pg (27.0-31.0); MEAN CORPUSCULAR HGB CONC 32.5 g/dL (32.0-36.0); MEAN CORPUSCULAR VOLUME 94.6 fL (80.0-94.0); MEAN PLATELET VOLUME 11.2 fL (7.4-11.4); MONOCYTES % (AUTO) 16.4 %; NEUTROPHILS % (AUTO) 14.3 %; PLT - PLATELET COUNT 138 10^3/uL (130-450); RED CELL DISTRIBUTION WIDTH 14.6 % (12.0-15.0); WHITE BLOOD COUNT 19.6 x10^3/uL (4.8-10.8)
[2023-03-20 10:41] LABS: ALBUMIN 4.6 g/dL (3.2-5.5); ALBUMIN/GLOBULIN RATIO 1.8 (1.0-2.2); BILIRUBIN,TOTAL 0.8 mg/dL (0.2-1.0); CALCIUM 9.3 mg/dL (8.5-10.3); CREATININE 0.9 mg/dL (0.6-1.3); CRP HIGH SENSITIVITY 0.8 mg/L; POTASSIUM 4.7 mmol/L (3.5-4.5); TOTAL PROTEIN 7.1 g/dL (6.4-8.9)
[2023-03-20 10:46] LABS: ABNORMAL LYMPHS % (MANUAL) 0 %; BAND NEUTROPHILS % (MANUAL) 0 %
[2023-03-20 10:55] LABS: THYROID STIMULATING HORMONE 5.26 uIU/mL (0.34-5.60)
[2023-03-20 11:01] LABS: FERRITIN 33.6 ng/mL (23.9-336.2)
[2023-03-20 11:28] LABS: BASOPHILS # (MANUAL) 0.2 10^3/uL (0-0.1); BASOPHILS % (MANUAL) 1 %; DIFFERENTIAL COMMENT MANUAL DIFFERENTIAL; LYMPHOCYTES # (MANUAL) 16.5 10^3/uL (1.5-3.5); LYMPHOCYTES % (MANUAL) 84 %; MONOCYTES # (MANUAL) 0.8 10^3/uL (0.0-1.0); NEUTROPHILS # (MANUAL) 2.2 10^3/uL (1.5-6.6)
[2023-03-20 11:29] LABS: PLATELET ESTIMATE, MANUAL NORMAL (130-450,000) (NORMAL); PLATELET MORPHOLOGY NORMAL APPEARANCE (NORMAL); RBC MORPHOLOGY (MULTIPLE) NORMAL APPEARANCE (NORMAL); WBC MORPHOLOGY (MULTIPLE) 2+ REACTIV (NORMAL)
--- NOTE | 2023-03-20 16:35 | Ultrasound Report ---
PROCEDURE: Abdomen Complete INDICATIONS: CHRONIC LYMPHOID LEUKEMIA TECHNIQUE: Real-time scanning was performed of the abdominal and retroperitoneal organs, with image documentatio n. COMPARISON: None. FINDINGS: Liver: Liver is normal in size and homogeneous in echotexture. Gallbladder: Multiple calculi within the gallbladder lumen. No gallbladder wall thickening. Biliary ducts: Intrahepatic bile ducts are non-dilated. Extrahepatic bile duct caliber measures 4 m m. Normal is 6-7 mm or less in diameter, or 10 mm or less post-cholecystectomy. Pancreas: Visualized portions of the pancreas are sonographically normal. Spleen: Spleen is normal in size and homogeneous in echotexture. Kidneys: Kidneys are normal in size and echotexture. Right kidney measures 11.7 cm long; left kidne y measures 12.4 cm long. No hydronephrosis. No solid masses. No complex renal cystic lesions which r equire follow-up. Multiple bilateral renal cysts are present. 9 millimeter right renal calculus is pr esent. Aorta: Visualized aorta is normal in caliber at less than 3 cm. Iliacs: Proximal common iliac arteries are normal in caliber at less than 2.5 cm. IVC: Intrahepatic inferior vena cava is patent. Miscellaneous: No free abdominal fluid. IMPRESSION: 1. Cholelithiasis. 2. Nephrolithiasis. 2. No acute process. Reviewed by: Alfred Gregory MD on 03/20/2023 4:34 PM PST Approved by: Alfred Gregory MD on 03/20/2023 4:34 PM PST Station ID: [id number]
[2023-03-21 05:32] LABS: CERULOPLASMIN 21.8 mg/dL (16.0-31.0)
[2023-03-21 07:10] LABS: VITAMIN D 25-HYDROXY 78.8 ng/mL (30.0-100.0)
[2023-03-21 08:10] LABS: INSULIN 13.7 uIU/mL (2.6-24.9)
== END 2023-03-20 09:46 | disposition home or self-care (01) ==
LOC: DI 09:45
PROVIDERS: ATTEND Internal Medicine
DX: C91.10 Chronic lymphocytic leukemia of B-cell type not having achieved remission (principal); K80.20 Calculus of gallbladder without cholecystitis without obstruction; N20.0 Calculus of kidney; R53.83 Other fatigue; E11.9 Type 2 diabetes mellitus without complications; B27.90 Infectious mononucleosis, unspecified without complication; I10 Essential (primary) hypertension; E55.9 Vitamin D deficiency, unspecified; D68.9 Coagulation defect, unspecified; R41.89 Other symptoms and signs involving cognitive functions and awareness; E78.5 Hyperlipidemia, unspecified
CPT/HCPCS: 36415; 80053; 81599; 82306; 82390; 82525; 82728; 82977; 83036; 83090; 83525; 83615; 84305; 84436; 84443; 84479; 84481; 84590; 85025; 85384; 85651; 86141

== ENCOUNTER 2023-04-11 10:16 | Outpatient (CLI) | payer MEDICARE, OTHER ==
--- NOTE | 2023-04-11 11:30 | Ultrasound Report ---
PROCEDURE: Head or Neck Soft Tissue INDICATIONS: THYROID NODULE TECHNIQUE: Real-time scanning was performed of the thyroid gland, with image documentation. COMPARISON: None FINDINGS: Right: Thyroid lobe measures 4.1 x 1.8 x 1.3 cm, and is homogeneous in echotexture. Left: Thyroid lobe measures 3.2 x 1.7 x 1.1 cm, and is homogenous in echotexture. Isthmus: 0.32 mm thick. No solid thyroid nodules are present. The thyroid echotexture appears within normal limits. There are two 4 mm benign cysts in the left lobe of the patient's thyroid gland. IMPRESSION: 1. No evidence for solid thyroid nodule identified. 2. Two benign 4 millimeter simple cysts in the left lobe of the patient's thyroid gland. Reviewed by: Nitin Ignacio MD on 04/11/2023 11:29 AM PST Approved by: Nitin Ignacio MD on 04/11/2023 11:29 AM PST Station ID: [id number]
== END 2023-04-11 10:17 | disposition home or self-care (01) ==
LOC: DI 10:16
PROVIDERS: ATTEND Internal Medicine
DX: E04.1 Nontoxic single thyroid nodule (principal)

== ENCOUNTER 2023-04-27 13:09 | Outpatient (CLI) | payer MEDICARE, OTHER ==
--- NOTE | 2023-04-27 13:41 | Sleep Patient Instructions ---
Sleep Center Visit Summary - Patient Visit Information Reason for Visit: Two month followup - Patient Instructions Additional Instructions: You were here for follow up of CPAP therapy. You will be continued on CPAP therapy with pressure at 10-14 cmH2O. You should follow up with sleep care in 3 months. You may contact us sooner for any questions or concerns. - Clinic Information Contact: [facility] [address] [place] [id number] [email or web address] T: [phone]
--- NOTE | 2023-04-27 13:50 | SLEEP CARE CONSULTATION ---
Information from patient questionnaire entered by Mirella Myers. I have reviewed and concur with the information entered by Mirella Myers. This document represents the service I personally performed and the decisions made by , Peggy Kelly ARNP. History of Present Illness Service Date and Time: 04/27/2023 1309 Previous diagnosis: Moderate, Obstructive Sleep Apnea-Hypopnea Syndrome AHI: 25.7 (in 11/2022) Reason for follow up: other (2 MONTH F/U) Equipment type: CPAP (ResMed Airsense 11, damico ) Equipment obtained from: [employer] ([employer]) Mask style: Nasal Mask brand: Resmed Backup mask available: Yes Last cushion change: couple weeks Prior sleep studies: No Type of Sleep Study: Polysomnography (COMPLETED 11/16/22) HPI additional information: BRITTANIE ALVARADO was diagnosed to have moderate, AHI 25.7, obstructive sleep apnea- hypopnea syndrome and returned today for CPAP therapy two month follow-up. Sleep Study - Results Type of Sleep Study: Polysomnography (COMPLETED 11/16/22) Prior sleep studies: No CPAP Compliance Data - Data Reviewed with Patient Average duration of nightly device use: 9 HRS 55 MINS Compliance rate %: 100 (02/24/23-04/24/23; 60/60 days used) Current pressure setting (cmH2O): 10-14 Average residual AHI: 1.6 Central apnea: 0.9 Obstructive apnea: 0.6 Average large leak: 0 L/min Subjective Patient concerns: reports: mask leak noise (from turning on side), other (occasionally mouth fills up with air). denies: aerophagia, mask discomfort, air blowing in eyes, condensation in mask/hose, nasal congestion, dry mouth, nose, throat, epistaxis Observed to snore while using device: No Current pressure setting perceived as: comfortable On therapy, patient: reports: sleeping better, awakening more refreshed, being more awake and alert during the day, more rested overall. denies: drowsiness while driving Initial [place] Sleepiness Scale score: 8 (09/2021) Current [place] Sleepiness Scale score: 3 (04/27/23) Allergies and Home Medications Known drug allergies: No Drug allergies reviewed: Yes Home medication list reviewed: Yes (no changes) Allergy and home medication list: Allergies No Known Drug Allergies Allergy (Verified 04/26/23 10:29) Review of Systems Review of systems same as previous: Yes (NO CHANGE) Physical Exam Vital signs obtained and entered by: MIRELLA Ho MA Blood Pressure: 147/66 (LEFT ARM) Cuff size: regular Heart Rate: 69 O2 Saturation: 98 Height: 6 ft (PER PT) Weight: 207 lb 3.2 oz Body Mass Index: 28.0 BMI Classification: Overweight Impression and Plan 1. Obstructive Sleep Apnea-Hypopnea Syndrome, moderate, with good treatment compliance and good apnea control. On CPAP therapy, the patient has better sleep quality and is more rested overall. Patient has significant improvement of their sleep apnea and is satisfied with current CPAP therapy. Patient would like to try a travel CPAP for convenience. He understands that this is something he would have to pay for by himself, that insurance does not cover this usually. I gave him a prescription for the travel CPAP and he may purchase one online or through his [employer] company. Patient denies problems with oral dryness, nasal congestion, epistaxis, skin irritation or aerophagia. Patient's apnea severity and rationale for treatment to reduce apnea, improve sleep quality and reduce cardiovascular and cerebrovascular events was reviewed. I also reviewed the benefit of consistent device use of CPAP for hypertension and depression. 2. Overweight, unspecified. Currently patients BMI is 28. Obesity increases the risk of apnea, CPAP pressure requirements and overall health risks especially cardiovascular and diabetes. Thus patient is advised to lose weight. * Continue auto CPAP pressure at 10-14 cmH2O * Travel CPAP prescription * Notify me if snoring with mask or feeling that the pressure is too much or too little * Attempt to lose weight * Call this office if any problems using CPAP * Return for follow up in 3 months, or sooner if concerns arise Counseling Topics: Spare mask, Weight loss health impact Follow up with Sleep Care in: 3 months Visit Type: In Office Time Spent with Patient (minutes): 27 Provider Statement: I spent 100% of the Face to Face Visit with the patient with greater than 50% spent counseling the patient and coordination of care.
[2023-04-27 14:08] VITALS: BP 147/66; O2SAT 98
== END 2023-04-27 13:10 | disposition home or self-care (01) ==
LOC: SC 13:09
PROVIDERS: ATTEND Nurse Practitioner Family
DX: G47.33 Obstructive sleep apnea (adult) (pediatric) (principal); E66.3 Overweight; Z68.28 Body mass index [BMI] 28.0-28.9, adult
CPT/HCPCS: 99213; G0463; 99212

== ENCOUNTER 2023-05-16 10:17 | Outpatient (CLI) | payer MEDICARE, OTHER ==
[2023-05-16 10:59] LABS: CRP HIGH SENSITIVITY 0.88 mg/L
[2023-05-16 11:34] LABS: ESTIMATED AVERAGE GLUCOSE 105 mg/dL (70-100); HEMOGLOBIN A1c% 5.3 % (4.27-6.07)
[2023-05-17 07:09] LABS: INSULIN 12.6 uIU/mL (2.6-24.9)
== END 2023-05-16 10:18 | disposition home or self-care (01) ==
LOC: LAB 10:17
PROVIDERS: ATTEND General Practice
DX: C91.10 Chronic lymphocytic leukemia of B-cell type not having achieved remission (principal); C43.9 Malignant melanoma of skin, unspecified; I10 Essential (primary) hypertension; R41.89 Other symptoms and signs involving cognitive functions and awareness; E78.5 Hyperlipidemia, unspecified; R53.83 Other fatigue; E55.9 Vitamin D deficiency, unspecified; B27.90 Infectious mononucleosis, unspecified without complication; E11.9 Type 2 diabetes mellitus without complications; D68.9 Coagulation defect, unspecified; K58.9 Irritable bowel syndrome, unspecified
CPT/HCPCS: 36415; 81599; 82306; 82977; 83036; 83090; 83525; 84305; 85379; 85384; 85651; 86141

== ENCOUNTER 2023-06-28 10:41 | Outpatient (CLI) | payer MEDICARE, OTHER ==
[2023-06-28 11:31] LABS: BASOPHILS % (AUTO) 0.2 %; EOSINOPHILS % (AUTO) 0.3 %; HCT - HEMATOCRIT 37.8 % (42.0-52.0); HGB - HEMOGLOBIN 12.4 g/dL (14.0-18.0); LYMPHOCYTES % (AUTO) 68.1 %; MEAN CORPUSCULAR HEMOGLOBIN 31.2 pg (27.0-31.0); MEAN CORPUSCULAR HGB CONC 32.8 g/dL (32.0-36.0); MEAN PLATELET VOLUME 10.9 fL (7.4-11.4); MONOCYTES % (AUTO) 13.3 %; RED BLOOD COUNT 3.98 10^6/uL (4.70-6.10); RED CELL DISTRIBUTION WIDTH 14.8 % (12.0-15.0); WHITE BLOOD COUNT 22.6 x10^3/uL (4.8-10.8)
[2023-06-28 11:42] LABS: ABNORMAL LYMPHS % (MANUAL) 0 %; BAND NEUTROPHILS % (MANUAL) 0 %
[2023-06-28 11:48] LABS: ALBUMIN 4.4 g/dL (3.2-5.5); ALBUMIN/GLOBULIN RATIO 1.9 (1.0-2.2); BILIRUBIN,TOTAL 1.4 mg/dL (0.2-1.0); CALCIUM 9.3 mg/dL (8.5-10.3); CREATININE 1.1 mg/dL (0.6-1.3); CRP HIGH SENSITIVITY 2.82 mg/L; POTASSIUM 4.3 mmol/L (3.5-4.5); TOTAL PROTEIN 6.7 g/dL (6.4-8.9)
[2023-06-28 11:58] LABS: DIFFERENTIAL COMMENT MANUAL DIFFERENTIAL; LYMPHOCYTES # (MANUAL) 17.9 10^3/uL (1.5-3.5); LYMPHOCYTES % (MANUAL) 79 %; MONOCYTES # (MANUAL) 0.7 10^3/uL (0.0-1.0); NEUTROPHILS # (MANUAL) 4.1 10^3/uL (1.5-6.6); PLATELET ESTIMATE, MANUAL NORMAL (130-450,000) (NORMAL); PLATELET MORPHOLOGY NORMAL APPEARANCE (NORMAL); RBC MORPHOLOGY (MULTIPLE) NORMAL APPEARANCE (NORMAL)
[2023-06-28 12:07] LABS: FERRITIN 52.9 ng/mL (23.9-336.2)
[2023-06-28 12:21] LABS: PLT - PLATELET COUNT 137 10^3/uL (130-450)
[2023-06-28 13:17] LABS: ESTIMATED AVERAGE GLUCOSE 108 mg/dL (70-100); HEMOGLOBIN A1c% 5.4 % (4.27-6.07)
[2023-06-29 08:10] LABS: VITAMIN D 25-HYDROXY 90.9 ng/mL (30.0-100.0)
[2023-06-29 10:09] LABS: CERULOPLASMIN 22.3 mg/dL (16.0-31.0); INSULIN 14.4 uIU/mL (2.6-24.9)
== END 2023-06-28 10:42 | disposition home or self-care (01) ==
LOC: LAB 10:41
PROVIDERS: ATTEND General Practice
DX: C91.10 Chronic lymphocytic leukemia of B-cell type not having achieved remission (principal); C43.9 Malignant melanoma of skin, unspecified; R53.83 Other fatigue; E55.9 Vitamin D deficiency, unspecified; E11.9 Type 2 diabetes mellitus without complications; D68.9 Coagulation defect, unspecified; M35.9 Systemic involvement of connective tissue, unspecified; I10 Essential (primary) hypertension; K58.9 Irritable bowel syndrome, unspecified; R41.89 Other symptoms and signs involving cognitive functions and awareness
CPT/HCPCS: 36415; 80053; 81599; 82306; 82390; 82525; 82728; 82777; 82977; 83036; 83090; 83525; 83615; 83625; 84305; 85025; 85379; 85384; 85651; 86141

== ENCOUNTER 2023-07-07 15:12 | Emergency (ER) | payer MEDICARE, OTHER ==
[2023-07-07 15:57] LABS: BASOPHILS % (AUTO) 0.3 %; HCT - HEMATOCRIT 36.6 % (42.0-52.0); HGB - HEMOGLOBIN 12.2 g/dL (14.0-18.0); LYMPHOCYTES % (AUTO) 47.6 %; MEAN CORPUSCULAR HEMOGLOBIN 31.2 pg (27.0-31.0); MEAN CORPUSCULAR HGB CONC 33.3 g/dL (32.0-36.0); MEAN CORPUSCULAR VOLUME 93.6 fL (80.0-94.0); MONOCYTES % (AUTO) 9.5 %; NEUTROPHILS % (AUTO) 42.2 %; PLT - PLATELET COUNT 143 10^3/uL (130-450); RED BLOOD COUNT 3.91 10^6/uL (4.70-6.10); RED CELL DISTRIBUTION WIDTH 14.9 % (12.0-15.0); WHITE BLOOD COUNT 29.6 x10^3/uL (4.8-10.8)
--- NOTE | 2023-07-07 15:58 | ED Physician Documentation ---
History of Present Illness - Stated complaint Stated Complaint: CHILLS,FEVER, - Chief complaint Chief Complaint: Fever - History obtained from History obtained from: Patient, Family - History of Present Illness Timing: Today Pain level max: 0 Pain level now: 0 - Additonal information Additional information: Patient has a history of chronic lymphocytic leukemia/small lymphocytic leukemia. Mild anemia. Also has a history of fatigue and daytime naps. states that he had a fever at home today along with shaking chills. Urinating frequently. No history of UTIs, cough or congestion. He is not currently undergoing any treatment for his CML. He is just on "supplements". No history of kidney stones. No abdominal pain, nausea, vomiting. states that he is weaker than usual as well. Patient states that he is feeling "okay". Review of Systems Constitutional: reports: Fever, Chills Nose: denies: Rhinorrhea / runny nose, Congestion PD PAST MEDICAL HISTORY - Past Medical History Cardiovascular: None Respiratory: None Neuro: None Endocrine/Autoimmune: None GI: None : None Psych: None Musculoskeletal: Osteoarthritis Other Past Medical History: CLL - Past Surgical History Past Surgical History: Yes Ortho: Knee replacement - Present Medications Home Medications: Ambulatory Orders Medication Instructions Recorded Confirmed Losartan [Cozaar] 50 mg PO DAILY 05/06/19 05/22/23 Naltrexone HCl/Bupropion HCl 3 mg PO DAILY 05/06/19 05/22/23 [Contrave ER 8-90 mg Tablet] Gabapentin [Neurontin] 300 mg PO HS 10/24/22 05/22/23 Cefpodoxime Proxetil [Vantin] 100 mg PO Q12H #14 tablet 07/07/23 - Allergies Allergies/Adverse Reactions: Allergies Allergy/AdvReac Type Severity Reaction Status Date / Time No Known Drug Allergies Allergy Verified 07/07/23 15:29 - Social History Does the pt smoke?: No Smoking Status: Never smoker PD ED PE NORMAL - Vitals Vital signs reviewed: Yes - General General: Alert and oriented X 3, No acute distress - HEENT HEENT: Moist mucous membranes - Neck Neck: Supple, no meningeal sign - Cardiac Cardiac: RRR, Strong equal pulses - Respiratory Respiratory: No respiratory distress, Clear bilaterally - Abdomen Abdomen: Soft, Non tender, Non distended - Derm Derm: Warm and dry, No rash - Extremities Extremities: No edema - Neuro Neuro: Alert and oriented X 3 - Psych Psych: Normal mood, Normal affect Results - Vitals Vitals: Vital Signs - 24 hr 07/07/23 07/07/23 07/07/23 15:24 15:29 17:29 Temperature 38.0 C H 38.3 C H Heart Rate 108 H 102 H Respiratory 18 18 16 Rate Blood Pressure 148/67 H 145/68 H O2 Saturation 96 95 07/07/23 07/07/23 07/07/23 17:30 18:00 18:30 Temperature Heart Rate 102 H 124 H 108 H Respiratory 19 18 Rate Blood Pressure 145/68 H 142/64 H 131/61 H O2 Saturation 95 93 92 07/07/23 07/07/23 07/07/23 18:37 19:30 19:32 Temperature 38.8 C H 38.8 C H Heart Rate 103 H Respiratory 18 Rate Blood Pressure O2 Saturation 96 07/07/23 07/07/23 20:00 20:54 Temperature Heart Rate 102 H 102 H Respiratory 19 17 Rate Blood Pressure O2 Saturation 95 96 Oxygen O2 Source Room air - Labs Labs: Laboratory Tests 07/07/23 07/07/23 07/07/23 15:45 15:45 15:45 WBC 29.6 H RBC 3.91 L Hgb 12.2 L Hct 36.6 L MCV 93.6 MCH 31.2 H MCHC 33.3 RDW 14.9 Plt Count 143 MPV 11.0 Neut # (Auto) Not Reportable Lymph # (Auto) Not Reportable [place] # (Auto) Not Reportable Eos # (Auto) Not Reportable Baso # (Auto) Not Reportable Absolute Nucleated RBC Not Reportable Total Counted 100 Band Neuts % (Manual) 3 Reactive Lymphs % (Man) 22 Abnorm Lymph % (Manual) 0 Nucleated RBC % Not Reportable Neutrophils # (Manual) 12.4 H Lymphocytes # (Manual) 15.4 H Monocytes # (Manual) 1.8 H Eosinophils # (Manual) 0.0 Basophils # (Manual) 0.0 Differential Comment MANUAL DIFFERENTIAL Platelet Estimate NORMAL (130-450,000) Platelet Morphology NORMAL APPEARANCE RBC Morph Micro Appear NORMAL APPEARANCE PT INR APTT Sodium 134 L Potassium 4.0 Chloride 100 L Carbon Dioxide 26 Anion Gap 8.0 BUN 20 Creatinine 1.3 Estimated GFR (MDRD) 53 L Glucose 144 H Lactic Acid 1.2 Calcium 9.6 Total Bilirubin 1.2 H AST 27 ALT 21 Alkaline Phosphatase 58 Total Protein 7.2 Albumin 4.6 Globulin 2.6 Albumin/Globulin Ratio 1.8 Lipase 29 Urine Color Urine Clarity Urine pH Ur Specific [place] Urine Protein Urine Glucose (UA) Urine Ketones Urine Occult Blood Urine Nitrite Urine Bilirubin Urine Urobilinogen Ur Leukocyte Esterase Urine RBC Urine WBC Ur Squamous Epith Cells Urine Bacteria Ur Microscopic Review Urine Culture Comments Nasal Adenovirus (PCR) Nasal B. parapertussis DNA (PCR) Nasal Coronavir 229E PCR Nasal Coronavir HKU1 PCR Nasal Coronavir NL63 PCR Nasal Coronavir OC43 PCR Nasal Enterovir/Rhinovir PCR Nasal Influenza B PCR Nasal Influenza A PCR Nasal Parainfluen 1 PCR Nasal Parainfluen 2 PCR Nasal Parainfluen 3 PCR Nasal Parainfluen 4 PCR Nasal RSV (PCR) Nasal B.pertussis DNA PCR Nasal C.pneumoniae (PCR) Dru Human Metapneumo PCR Nasal M.pneumoniae (PCR) Nasal SARS-CoV-2 (PCR) 07/07/23 07/07/23 07/07/23 16:05 16:09 16:25 WBC RBC Hgb Hct MCV MCH MCHC RDW Plt Count MPV Neut # (Auto) Lymph # (Auto) [place] # (Auto) Eos # (Auto) Baso # (Auto) Absolute Nucleated RBC Total Counted Band Neuts % (Manual) Reactive Lymphs % (Man) Abnorm Lymph % (Manual) Nucleated RBC % Neutrophils # (Manual) Lymphocytes # (Manual) Monocytes # (Manual) Eosinophils # (Manual) Basophils # (Manual) Differential Comment Platelet Estimate Platelet Morphology RBC Morph Micro Appear PT 12.2 INR 1.1 APTT 23.6 L Sodium Potassium Chloride Carbon Dioxide Anion Gap BUN Creatinine Estimated GFR (MDRD) Glucose Lactic Acid Calcium Total Bilirubin AST ALT Alkaline Phosphatase Total Protein Albumin Globulin Albumin/Globulin Ratio Lipase Urine Color YELLOW Urine Clarity CLOUDY Urine pH 6.0 Ur Specific [place] 1.025 Urine Protein 30 H Urine Glucose (UA) NEGATIVE Urine Ketones NEGATIVE Urine Occult Blood MODERATE H Urine Nitrite NEGATIVE Urine Bilirubin NEGATIVE Urine Urobilinogen 0.2 (NORMAL) Ur Leukocyte Esterase SMALL H Urine RBC 6-10 H Urine WBC >25 H Ur Squamous Epith Cells NONE SEEN Urine Bacteria Few Ur Microscopic Review INDICATED Urine Culture Comments INDICATED Nasal Adenovirus (PCR) NOT DETECTED Nasal B. parapertussis DNA (PCR) NOT DETECTED Nasal Coronavir 229E PCR NOT DETECTED Nasal Coronavir HKU1 PCR NOT DETECTED Nasal Coronavir NL63 PCR NOT DETECTED Nasal Coronavir OC43 PCR NOT DETECTED Nasal Enterovir/Rhinovir PCR NOT DETECTED Nasal Influenza B PCR NOT DETECTED Nasal Influenza A PCR NOT DETECTED Nasal Parainfluen 1 PCR NOT DETECTED Nasal Parainfluen 2 PCR NOT DETECTED Nasal Parainfluen 3 PCR NOT DETECTED Nasal Parainfluen 4 PCR NOT DETECTED Nasal RSV (PCR) NOT DETECTED Nasal B.pertussis DNA PCR NOT DETECTED Nasal C.pneumoniae (PCR) NOT DETECTED Dru Human Metapneumo PCR NOT DETECTED Nasal M.pneumoniae (PCR) NOT DETECTED Nasal SARS-CoV-2 (PCR) NOT DETECTED - Rads (name of study) CT abdomen pelvis Relevant Findings:: Final report received, See rad report cxr Relevant Findings:: Final report received, See rad report PD Medical Decision Making - ED course Complexity details: reviewed results, re-evaluated patient, considered differential, d/w patient, d/w family ED course: Patient is a 77-year-old male who presents to the emergency department with a UTI and fever. Lactate is normal. Given IV fluids, given IV Rocephin. CT scan does not show any hydronephrosis or ureteral stones. Does not have any evidence of pneumonia in the left costophrenic angle. Gallbladder hydrops does not show any radiopaque stones. He has no abdominal tenderness. No tenderness in the right upper quadrant. LFTs are normal. The small focus of enhancement along the prostate will be followed up with his primary care provider. A copy of the CT report was included on his discharge instructions. The patient adamantly refuses admission to the hospital. I recommended that he be admitted for IV antibiotics, observation as he could have early sepsis. The patient continues to adamantly refuse this. His feels comfortable taking him home as well. After a lengthy discussion, they decided that they would go home with strict return precautions. Patient is ambulating without difficulty, is at his normal mental baseline not having any rigors. Alert and oriented x 3. Patient counseled regarding signs and symptoms for which I believe and urgent re- evaluation would be necessary. Patient with good understanding of and agreement to plan and is comfortable going home at this time This document was made in part using voice recognition software. While efforts are made to proofread this document, sound alike and grammatical errors may occur. PROCEDURE: Abdomen/Pelvis W INDICATIONS: fever, UTI CONTRAST: 100ml omni 300 TECHNIQUE: After the administration of intravenous contrast, a CT scan of the abdomen and pelvis was performed. Images were recorded and evaluated at appropriate window settings. Reformats: coronal and sagittal. For radiation dose reduction, the following was used: automated exposure control, adjustment of mA and/or kV according to patient size. COMPARISON: None. FINDINGS: Image quality: Diagnostic. Lower chest: Bibasilar atelectasis. Liver: Hepatic steatosis. Gallbladder and biliary tree: Gallbladder hydrops without wall thickening. Spleen: Splenomegaly, measuring 14.3 x 4.7 x 13.6 cm. Pancreas: No pancreatic ductal dilation. Adrenals: No adrenal nodule. Kidneys and ureters: No hydronephrosis. No renal cystic lesion which requires follow up. No solid mass. Stomach, bowel and peritoneum: No bowel distension. No pathologic free fluid. Diverticulosis without evidence of diverticulitis. Lymph nodes: No central or retroperitoneal adenopathy. Vessels: No infrarenal aortic aneurysm. PELVIS Reproductive organs: Small focus of enhancement along the peripheral zone of the prostate gland. Bladder: Trace gas within the urinary bladder. Pelvic lymph nodes: No pelvic adenopathy by size criteria. Bones: No aggressive osseous abnormality. Other: No significant ventral or inguinal hernia. IMPRESSION: Trace gas within the urinary bladder, either iatrogenic or indicating infection. No CT evidence of pyelonephritis. Gallbladder hydrops without radiopaque stones. Findings could indicate early acute cholecystitis. Consider right upper quadrant ultrasound if there is pain within this region. Colonic diverticulosis without evidence of diverticulitis. Small focus of enhancement along the peripheral zone of the prostate gland, which can be seen in the setting of malignancy. Correlate with PSA and consider urology referral if positive. Departure - Departure Disposition: 01 Home, Self Care Clinical Impression: Fever Qualifiers: Fever type: unspecified Qualified Code(s): R50.9 - Fever, unspecified UTI (urinary tract infection) Qualifiers: Urinary tract infection type: acute cystitis Hematuria presence: without hematuria Qualified Code(s): N30.00 - Acute cystitis without hematuria Condition: Stable Instructions: ED UTI Cystitis Male Follow-Up: your,doctor in 3 days [Other] Prescriptions: Cefpodoxime Proxetil [Vantin] 100 mg PO Q12H #14 tablet Comments: Your prescription was sent to [facility] in [place]. Please take all antibiotics until gone. Please return if you worsen including increasing fevers, pain, altered mental status or other new or worrisome symptoms. It was offered to stay in the hospital tonight for further care and observation, but you have declined this at this time as you are feeling better. PROCEDURE: Abdomen/Pelvis W INDICATIONS: fever, UTI CONTRAST: 100ml omni 300 TECHNIQUE: After the administration of intravenous contrast, a CT scan of the abdomen and pelvis was performed. Images were recorded and evaluated at appropriate window settings. Reformats: coronal and sagittal. For radiation dose reduction, the following was used: automated exposure control, adjustment of mA and/or kV according to patient size. COMPARISON: None. FINDINGS: Image quality: Diagnostic. Lower chest: Bibasilar atelectasis. Liver: Hepatic steatosis. Gallbladder and biliary tree: Gallbladder hydrops without wall thickening. Spleen: Splenomegaly, measuring 14.3 x 4.7 x 13.6 cm. Pancreas: No pancreatic ductal dilation. Adrenals: No adrenal nodule. Kidneys and ureters: No hydronephrosis. No renal cystic lesion which requires follow up. No solid mass. Stomach, bowel and peritoneum: No bowel distension. No pathologic free fluid. Diverticulosis without evidence of diverticulitis. Lymph nodes: No central or retroperitoneal adenopathy. Vessels: No infrarenal aortic aneurysm. PELVIS Reproductive organs: Small focus of enhancement along the peripheral zone of the prostate gland. Bladder: Trace gas within the urinary bladder. Pelvic lymph nodes: No pelvic adenopathy by size criteria. Bones: No aggressive osseous abnormality. Other: No significant ventral or inguinal hernia. IMPRESSION: Trace gas within the urinary bladder, either iatrogenic or indicating infection. No CT evidence of pyelonephritis. Gallbladder hydrops without radiopaque stones. Findings could indicate early acute cholecystitis. Consider right upper quadrant ultrasound if there is pain within this region. Colonic diverticulosis without evidence of diverticulitis. Small focus of enhancement along the peripheral zone of the prostate gland, which can be seen in the setting of malignancy. Correlate with PSA and consider urology referral if positive. Forms: PCP List Discharge Date/Time: 07/07/23 19:40
[2023-07-07 16:08] LABS: ABNORMAL LYMPHS % (MANUAL) 0 %
[2023-07-07 16:10] LABS: ALBUMIN 4.6 g/dL (3.2-5.5); ALBUMIN/GLOBULIN RATIO 1.8 (1.0-2.2); BILIRUBIN,TOTAL 1.2 mg/dL (0.2-1.0); CALCIUM 9.6 mg/dL (8.5-10.3); CREATININE 1.3 mg/dL (0.6-1.3); TOTAL PROTEIN 7.2 g/dL (6.4-8.9)
[2023-07-07] MEDS: SODIUM CHLORIDE 0.9% 1,000 ML IV STA ×2 (16:10→19:34)
[2023-07-07 16:21] LABS: BILIRUBIN,URINE NEGATIVE (NEGATIVE); GLUCOSE, URINE (UA) NEGATIVE (NEGATIVE); KETONES,URINE (UA) NEGATIVE (NEGATIVE); LEUKOCYTE ESTERASE, URINE SMALL (NEGATIVE); NITRITE,URINE NEGATIVE (NEGATIVE); OCCULT BLOOD,URINE MODERATE (NEGATIVE); PROTEIN,URINE 30 mg/dL (NEGATIVE); UROBILINOGEN,URINE 0.2 (NORMAL) E.U./dL (NORMAL)
[2023-07-07 16:23] LABS: CLARITY,URINE CLOUDY (CLEAR)
[2023-07-07 16:35] LABS: BACTERIA,URINE Few /HPF (None Seen); SQUAMOUS EPITHELIAL CELL,UR NONE SEEN (<= Few); WBC,URINE >25 /HPF (0-3)
[2023-07-07 16:40] LABS: BAND NEUTROPHILS % (MANUAL) 3 %; LYMPHOCYTES # (MANUAL) 15.4 10^3/uL (1.5-3.5); LYMPHOCYTES % (MANUAL) 30 %; MONOCYTES # (MANUAL) 1.8 10^3/uL (0.0-1.0); NEUTROPHILS # (MANUAL) 12.4 10^3/uL (1.5-6.6); PLATELET ESTIMATE, MANUAL NORMAL (130-450,000) (NORMAL); PLATELET MORPHOLOGY NORMAL APPEARANCE (NORMAL); RBC MORPHOLOGY (MULTIPLE) NORMAL APPEARANCE (NORMAL); REACTIVE LYMPHS % (MANUAL) 22 %
[2023-07-07 16:41] LABS: DIFFERENTIAL COMMENT MANUAL DIFFERENTIAL
--- NOTE | 2023-07-07 16:48 | XRAY Report ---
PROCEDURE: Chest 1V INDICATIONS: fever TECHNIQUE: One view of the chest was acquired. COMPARISON: None. FINDINGS: Surgical changes and devices: None. Lungs and pleura: Possible left costophrenic angle opacity. No pleural effusions. Low lung volumes. Mediastinum: Normal heart size Bones and chest wall: No acute or suspicious findings. There are degenerative changes. IMPRESSION: Possible opacity at the left costophrenic angle may represent atelectasis or airspace disease. Consid er future imaging surveillance to assess for resolution. Low lung volumes on this portable radiograph. Reviewed by: Dany Smith MD on 07/07/2023 4:47 PM PST Approved by: Dany Smith MD on 07/07/2023 4:47 PM PST Station ID: [id number]
[2023-07-07 16:51] LABS: PARTIAL THROMBOPLASTIN TIME 23.6 secs (24.9-33.3)
[2023-07-07 16:55] LABS: INR 1.1 (0.8-1.2); PT - PROTHROMBIN TIME 12.2 secs (9.9-12.6)
[2023-07-07] MEDS: cefTRIAXone 1 GM VIAL IVP STA (16:59)
[2023-07-07 17:06] LABS: B. PARAPERTUSSIS- RESP PCR PAN NOT DETECTED; B. PERTUSSIS- RESP PCR PANEL NOT DETECTED; C. PNEUMONIAE- RESP PCR PANEL NOT DETECTED; CORONAVIRUS 229E-RESP PCR NOT DETECTED; CORONAVIRUS HKU1-RESP PCR NOT DETECTED; CORONAVIRUS NL63-RESP PCR NOT DETECTED; CORONAVIRUS OC43-RESP PCR NOT DETECTED; HUMAN METAPNEUMOVIRUS NOT DETECTED; INFLUENZA A- RESP PCR PANEL NOT DETECTED; INFLUENZA B - RESP PCR PANEL NOT DETECTED; M. PNEUMONIAE- RESP PCR PANEL NOT DETECTED; PARAINFLUENZA VIRUS 1 NOT DETECTED; PARAINFLUENZA VIRUS 2 NOT DETECTED; PARAINFLUENZA VIRUS 3 NOT DETECTED; PARAINFLUENZA VIRUS 4 NOT DETECTED; RHINOVIRUS/ENTEROVIRUS NOT DETECTED; RSV- RESP PCR PANEL NOT DETECTED; SARS-CoV-2 -RESP PCR PANEL NOT DETECTED
[2023-07-07] MEDS: ACETAMINOPHEN 325 MG TABLET PO STA (18:07)
[2023-07-07 18:41] VITALS: BP 131/61
[2023-07-07] MEDS ORDERED: iohexoL-300 100 ML VIAL ONE (18:41)
[2023-07-07] MEDS: iohexoL-300 100 ML VIAL IVP ONE (19:01)
--- NOTE | 2023-07-07 19:20 | CT Report ---
PROCEDURE: Abdomen/Pelvis W INDICATIONS: fever, UTI CONTRAST: 100ml omni 300 TECHNIQUE: After the administration of intravenous contrast, a CT scan of the abdomen and pelvis was performed. Images were recorded and evaluated at appropriate window settings. Reformats: coronal and sagittal. F or radiation dose reduction, the following was used: automated exposure control, adjustment of mA and /or kV according to patient size. COMPARISON: None. FINDINGS: Image quality: Diagnostic. Lower chest: Bibasilar atelectasis. Liver: Hepatic steatosis. Gallbladder and biliary tree: Gallbladder hydrops without wall thickening. Spleen: Splenomegaly, measuring 14.3 x 4.7 x 13.6 cm. Pancreas: No pancreatic ductal dilation. Adrenals: No adrenal nodule. Kidneys and ureters: No hydronephrosis. No renal cystic lesion which requires follow up. No solid mas s. Stomach, bowel and peritoneum: No bowel distension. No pathologic free fluid. Diverticulosis without evidence of diverticulitis. Lymph nodes: No central or retroperitoneal adenopathy. Vessels: No infrarenal aortic aneurysm. PELVIS Reproductive organs: Small focus of enhancement along the peripheral zone of the prostate gland. Bladder: Trace gas within the urinary bladder. Pelvic lymph nodes: No pelvic adenopathy by size criteria. Bones: No aggressive osseous abnormality. Other: No significant ventral or inguinal hernia. IMPRESSION: Trace gas within the urinary bladder, either iatrogenic or indicating infection. No CT evidence of py elonephritis. Gallbladder hydrops without radiopaque stones. Findings could indicate early acute cholecystitis. Con barrel filler right upper quadrant ultrasound if there is pain within this region. Colonic diverticulosis without evidence of diverticulitis. Small focus of enhancement along the peripheral zone of the prostate gland, which can be seen in the setting of malignancy. Correlate with PSA and consider urology referral if positive. Reviewed by: Anderson Horton MD on 07/07/2023 7:18 PM PST Approved by: Anderson Horton MD on 07/07/2023 7:18 PM PST Station ID: [id number]
[2023-07-07] MEDS: IBUPROFEN 800 MG TABLET PO STA (20:16)
[2023-07-07 21:01] VITALS: O2SAT 96
== END 2023-07-07 19:40 | disposition home or self-care (01) ==
LOC: ED 15:12
DX: R50.9 Fever, unspecified (principal); N30.00 Acute cystitis without hematuria; R93.89 Abnormal findings on diagnostic imaging of other specified body structures
CPT/HCPCS: 36415; 51701; 71045; 74177; 80053; 81001; 83605; 83690; 85025; 85610; 85730; 87040; 87077; 87086; 87181; 87633; 96374; 99284; A9270; Q9967; 81003

== ENCOUNTER 2023-07-08 08:47 | Outpatient (CLI) | payer MEDICARE, OTHER | END 2023-07-08 23:59 | disposition critical access hospital (66) | LOC: EMS 08:47 | DX: R41.82 Altered mental status, unspecified (principal); R53.1 Weakness; R00.0 Tachycardia, unspecified | CPT/HCPCS: A0425; A0429 ==

== ENCOUNTER 2023-07-08 09:22 | Inpatient (IN) | payer MEDICARE, OTHER ==
--- NOTE | 2023-07-08 09:34 | ED Physician Documentation ---
PD HPI ALTERED MENTAL STATUS - Stated complaint Stated Complaint: WEAKNESS - History obtained from History obtained from: Patient, Family (), EMS (gave description of pt status enroute) - History of Present Illness Timing - onset: How many days ago (2 to 3 days of illness including fever chills, general weakness and malaise. No cough or respiratory symptoms per se. No belly pain. No vomiting or diarrhea. Seen yesterday in the ER with diagnosis of likely UTI. Patient opted for going home. Worse overnight.) Timing - duration: Days Timing - details: Abrupt onset, Still present Quality / character: Confused, Other (general weakness.) Contributing factors: Recent illness (UTI) Recently seen: Emergency Dept (yesterday with workup for infectious causes.) Review of Systems Constitutional: reports: Fever, Chills, Myalgias, Fatigue Nose: denies: Rhinorrhea / runny nose, Congestion Throat: denies: Sore throat Respiratory: denies: Cough GI: reports: Nausea. denies: Abdominal Pain, Vomiting, Diarrhea Musculoskeletal: denies: Neck pain, Back pain Neurologic: reports: Generalized weakness, Confused, Altered mental status. denies: Near syncope, Headache PD PAST MEDICAL HISTORY - Past Medical History Cardiovascular: None Respiratory: None Neuro: None Endocrine/Autoimmune: None GI: None : None Psych: None Musculoskeletal: Osteoarthritis - Past Surgical History Past Surgical History: Yes Ortho: Knee replacement - Present Medications Home Medications: Ambulatory Orders Medication Instructions Recorded Confirmed Losartan [Cozaar] 50 mg PO DAILY 05/06/19 07/08/23 Naltrexone HCl/Bupropion HCl 3 mg PO DAILY 05/06/19 07/08/23 [Contrave ER 8-90 mg Tablet] Gabapentin [Neurontin] 300 mg PO HS 10/24/22 07/08/23 Cefpodoxime Proxetil [Vantin] 100 mg PO Q12H #14 tablet 07/07/23 07/08/23 - Allergies Allergies/Adverse Reactions: Allergies Allergy/AdvReac Type Severity Reaction Status Date / Time No Known Drug Allergies Allergy Verified 07/07/23 15:29 - Social History Does the pt smoke?: No Smoking Status: Never smoker PD ED PE NORMAL - Vitals Vital signs reviewed: Yes - General General: No acute distress, Well developed/nourished. No: Alert and oriented X 3 (person and place) - Neck Neck: Supple, no meningeal sign, No adenopathy - Cardiac Cardiac: RRR, No murmur - Respiratory Respiratory: No respiratory distress, Clear bilaterally - Abdomen Abdomen: Normal bowel sounds, Soft, Non tender, No organomegaly - Back Back: Other (some CVA tender righht side) - Derm Derm: Normal color, No rash - Extremities Extremities: Normal ROM s pain, No edema, No calf tenderness / cord - Neuro Neuro: No motor deficit, Other (somewhat sluggish with responses to questions. ) Results - Vitals Vitals: Vital Signs - 24 hr 07/08/23 07/08/23 07/08/23 09:29 10:27 10:57 Temperature 38.9 C H Heart Rate 95 101 H 95 Respiratory 21 24 21 Rate Blood Pressure 114/94 H 147/71 H 147/69 H O2 Saturation 96 96 94 07/08/23 11:27 Temperature Heart Rate 97 Respiratory 21 Rate Blood Pressure 135/74 H O2 Saturation 95 Oxygen O2 Source Room air - Labs Labs: Laboratory Tests 07/08/23 07/08/23 07/08/23 09:45 09:45 09:45 WBC 25.5 H RBC 3.80 L Hgb 11.7 L Hct 35.7 L MCV 93.9 MCH 30.8 MCHC 32.8 RDW 15.2 H Plt Count 138 MPV 10.7 Neut # (Auto) Not Reportable Lymph # (Auto) Not Reportable [place] # (Auto) Not Reportable Eos # (Auto) Not Reportable Baso # (Auto) Not Reportable Absolute Nucleated RBC Not Reportable Total Counted 100 Band Neuts % (Manual) 4 Abnorm Lymph % (Manual) 0 Metamyelocytes % 1 H Nucleated RBC % Not Reportable Neutrophils # (Manual) 11.5 H Lymphocytes # (Manual) 13.0 H Monocytes # (Manual) 0.8 Eosinophils # (Manual) 0.0 Basophils # (Manual) 0.0 Differential Comment MANUAL DIFFERENTIAL Platelet Estimate DECREASED (<130,000) Platelet Morphology NORMAL APPEARANCE RBC Morph Micro Appear NORMAL APPEARANCE Sodium 137 Potassium 3.6 Chloride 103 Carbon Dioxide 26 Anion Gap 8.0 BUN 20 Creatinine 1.3 Estimated GFR (MDRD) 53 L Glucose 132 H Lactic Acid 1.0 Calcium 9.2 Total Bilirubin 2.2 H AST 24 ALT 21 Alkaline Phosphatase 51 B-Natriuretic Peptide Total Protein 6.7 Albumin 4.1 Globulin 2.6 Albumin/Globulin Ratio 1.6 Free PSA % Free PSA Total PSA 07/08/23 07/08/23 09:45 10:00 WBC RBC Hgb Hct MCV MCH MCHC RDW Plt Count MPV Neut # (Auto) Lymph # (Auto) [place] # (Auto) Eos # (Auto) Baso # (Auto) Absolute Nucleated RBC Total Counted Band Neuts % (Manual) Abnorm Lymph % (Manual) Metamyelocytes % Nucleated RBC % Neutrophils # (Manual) Lymphocytes # (Manual) Monocytes # (Manual) Eosinophils # (Manual) Basophils # (Manual) Differential Comment Platelet Estimate Platelet Morphology RBC Morph Micro Appear Sodium Potassium Chloride Carbon Dioxide Anion Gap BUN Creatinine Estimated GFR (MDRD) Glucose Lactic Acid Calcium Total Bilirubin AST ALT Alkaline Phosphatase B-Natriuretic Peptide 416 H Total Protein Albumin Globulin Albumin/Globulin Ratio Free PSA 12.281 H % Free PSA 39 Total PSA 31.243 H PD Medical Decision Making - ED course Complexity details: reviewed old records (ED visit and labs/CT result from yesterday. ), considered differential, d/w patient, d/w family (The describes the patient being more confused and sluggish to answer questions overnight and today with general weakness where he could not get out of bed. Fever and rigors overnight. Nausea without vomiting.) ED course: The patient has a history of CLL and was seen here yesterday with fevers and general malaise. Workup found likely UTI. There was question of atelectasis on chest x-ray and CT scan but no distinct pneumonia per se. Abdominal CT did not show any infectious causes. His respiratory viral panel was negative as well. CBC showed an elevated white count consistent with his CLL of 27,000. Other labs were unremarkable. He did not want to stay in the hospital yesterday. He was given ceftriaxone for his apparent UTI. Overnight had increased symptoms with weakness confusion and fevers with rigors and chills. Hear back this morning. He and his are accepting of hospitalization since he is feeling worse and his says she is unable to help him up out of bed with his weakness now today. I talked with the hospitalist who is in agreement for the patient to be hospitalized for now. The only apparent source is still UTI. Chest x-ray is clear at this point. White count is consistent again with the CLL at 25,000. Other labs today are normal. He has been ill just for couple of days. I did repeat the respiratory viral panel thinking it could have been a false negative yesterday. Other consideration could be prostate infection as the CT scan from yesterday did speak of some inflammation around there. I ordered a PSA which was fairly elevated. Consideration can be this is a source as well. Departure - Departure Disposition: ED Place in Observation Clinical Impression: Fever, Confusion, UTI (urinary tract infection) Condition: Stable Record reviewed to determine appropriate education?: Yes Discharge Date/Time: 07/08/23 12:18
[2023-07-08 10:07] LABS: BASOPHILS % (AUTO) 0.2 %; EOSINOPHILS % (AUTO) 0.5 %; HCT - HEMATOCRIT 35.7 % (42.0-52.0); HGB - HEMOGLOBIN 11.7 g/dL (14.0-18.0); LYMPHOCYTES % (AUTO) 43.6 %; MEAN CORPUSCULAR HEMOGLOBIN 30.8 pg (27.0-31.0); MEAN CORPUSCULAR HGB CONC 32.8 g/dL (32.0-36.0); MEAN CORPUSCULAR VOLUME 93.9 fL (80.0-94.0); MEAN PLATELET VOLUME 10.7 fL (7.4-11.4); MONOCYTES % (AUTO) 9.9 %; NEUTROPHILS % (AUTO) 44.4 %; PLT - PLATELET COUNT 138 10^3/uL (130-450); RED CELL DISTRIBUTION WIDTH 15.2 % (12.0-15.0); WHITE BLOOD COUNT 25.5 x10^3/uL (4.8-10.8)
[2023-07-08 10:12] LABS: ABNORMAL LYMPHS % (MANUAL) 0 %
[2023-07-08 10:15] LABS: ALBUMIN 4.1 g/dL (3.2-5.5); ALBUMIN/GLOBULIN RATIO 1.6 (1.0-2.2); BILIRUBIN,TOTAL 2.2 mg/dL (0.2-1.0); CALCIUM 9.2 mg/dL (8.5-10.3); CREATININE 1.3 mg/dL (0.6-1.3); POTASSIUM 3.6 mmol/L (3.5-4.5); TOTAL PROTEIN 6.7 g/dL (6.4-8.9)
--- NOTE | 2023-07-08 10:21 | XRAY Report ---
PROCEDURE: Chest 1V INDICATIONS: Sepsis TECHNIQUE: One view of the chest was acquired. COMPARISON: 07/07/2023 FINDINGS: Surgical changes and devices: None. Lungs and pleura: On the semiupright images, no large pneumothorax can be seen. There is again seen mild blunting of the left costophrenic angle. No focal infiltrates are seen. Mediastinum: Mediastinal contours appear normal. Heart size is normal. Bones and chest wall: No suspicious bony lesions. Overlying soft tissues appear unremarkable. IMPRESSION: Stable chest radiograph, without infiltrate. Blunting of the left costophrenic angle is seen, which is likely related to a small amount of pleural effusion. Reviewed by: Joe Hernández MD on 07/08/2023 9:19 AM [facility] Approved by: Joe Hernández MD on 07/08/2023 9:19 AM [facility] Station ID: [id number]
[2023-07-08 10:26] LABS: BAND NEUTROPHILS % (MANUAL) 4 %; DIFFERENTIAL COMMENT MANUAL DIFFERENTIAL; LYMPHOCYTES % (MANUAL) 51 %; METAMYELOCYTES % (MANUAL) 1 %; MONOCYTES # (MANUAL) 0.8 10^3/uL (0.0-1.0); NEUTROPHILS # (MANUAL) 11.5 10^3/uL (1.5-6.6); PLATELET ESTIMATE, MANUAL DECREASED (<130,000) (NORMAL); PLATELET MORPHOLOGY NORMAL APPEARANCE (NORMAL); RBC MORPHOLOGY (MULTIPLE) NORMAL APPEARANCE (NORMAL)
[2023-07-08] MEDS: cefTRIAXone 1 GM in SODIUM CHLORIDE 0.9% MINIBAG 100 ML IV STA (10:26)
[2023-07-08] MEDS: SODIUM CHLORIDE 0.9% 2,000 ML IV STA (10:26)
[2023-07-08] MEDS: AZITHROMYCIN INJ 500 MG in SODIUM CHLORIDE 0.9% 250 ML IV STA (11:10)
[2023-07-08] MEDS: ACETAMINOPHEN 500 MG TABLET PO STA (11:14)
[2023-07-08] MEDS: KETOROLAC 15 MG/ML VIAL IVP STA (11:18)
[2023-07-08] MEDS ORDERED: ONDANSETRON 4 MG/2 ML VIAL IVP PRN (11:30)
[2023-07-08] MEDS ORDERED: SODIUM CHLORIDE FLUSH 0.9% 10 ML SYRINGE IVP PRN (11:30)
[2023-07-08] MEDS ORDERED: ACETAMINOPHEN 325 MG TABLET PO PRN (11:30)
--- NOTE | 2023-07-08 11:39 | HISTORY & PHYSICAL EXAMINATION ---
Chief Complaint - Chief Complaint Chief Complaint: Confusion, recurrent fever History of Present Illness - Admitted From Admitted From:: ED - History Obtained From Records Reviewed: Yes History obtained from: ED provider and the patient - History of Present Illness HPI Comment/Other: This is a 77-year-old male with a history of CLL that is not on any chemotherapy, has a history of HTN, and lives with his . The patient developed a fever yesterday and the noticed urinary urgency and frequency and he came to the ER. He was found to be tachycardic at 120, febrile at 38.8 and had a very abnormal urinalysis showing many WBCs and some bacteria. Blood cultures were drawn and he was given IV Rocephin x1. His WBC normally runs 20-23 due to CLL, and yesterday his WBC was 29 and lactic acid level was normal. Chest x-ray showed a questionable left lower lobe infiltrate versus atelectasis. He underwent abdomen CT which showed diverticulosis but no diverticulitis but had abnormal findings with air in the bladder consistent with an infection and stranding of the prostate consistent with inflammation or malignancy. He was advised admission but he repeatedly refused to be admitted. The patient was therefore prescribed po Vantin and was discharged from the ER. 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 This morning his noticed that he was very confused and had another fever spike and brought him back to the ER. Today his WBC is 25, Lactic Acid is normal, he is not tachycardic, but he has a soft blood pressure of 114 systolic, and he has a fever again of 38.9. Blood cultures were sent off again. He received IV ceftriaxone and IV Zithromax empirically for the possible pneumonia, but today's CXR was read as having no infiltrate. The ED provider spoke to me about this patient. He will be placed in Observation to manage the UTI with new confusion. I spoke to him about his CODE BLUE wishes and he wants to be a Full Code. History - Past Medical History Cardiovascular: reports: None Respiratory: reports: None Neuro: reports: None Endocrine/Autoimmune: reports: None GI: reports: None : reports: None Psych: reports: None Musculoskeletal: reports: Osteoarthritis MRSA Hx?: No Other Past Medical History: CLL - Past Surgical History Ortho: reports: Knee replacement - Family & Social History Family History Comment/Other: Skin cancer runs in the family Living arrangement: At home Living Situation: With spouse/s.o. Social History Notes: He lives with his . He cannot remember what he retired from doing. He does not smoke and never smoked cigarettes. He drinks about 2 glasses of wine per night - POLST Patient has POLST: No Meds/Allgy - Home Medications Home Medications: Ambulatory Orders Medication Instructions Recorded Confirmed Losartan [Cozaar] 50 mg PO DAILY 05/06/19 07/08/23 Naltrexone HCl/Bupropion HCl 3 mg PO DAILY 05/06/19 07/08/23 [Contrave ER 8-90 mg Tablet] Gabapentin [Neurontin] 300 mg PO HS 10/24/22 07/08/23 Cefpodoxime Proxetil [Vantin] 100 mg PO Q12H #14 tablet 07/07/23 07/08/23 - Allergies Allergies/Adverse Reactions: Allergies Allergy/AdvReac Type Severity Reaction Status Date / Time No Known Drug Allergies Allergy Verified 07/07/23 15:29 Review of Systems - Constitutional Constitutional: reports: Fever, Chills - Genitourinary Genitourinary: reports: Frequency - Neurological Neurological: reports: Memory problems - All Other Systems All Other Systems: reports: Reviewed and negative Exam - Vital Signs Reviewed Vital Signs: Yes Vital Signs: Vital Signs x48h Temp Pulse Resp BP Pulse Ox 07/08/23 09:29 38.9 C H 95 21 114/94 H 96 - Physical Exam General Appearance: positive: No acute distress, Alert Eyes Bilateral: positive: EOMI, No lid inflammation ENT: positive: Dry mucous membranes Neck: positive: Nml inspection, No JVD Respiratory: positive: No respiratory distress, Breath sounds nml Cardiovascular: positive: Regular rate & rhythm, No murmur Abdomen: positive: Non-tender, Nml bowel sounds, Other (I cannot rule out hepatomegaly or ascites) Skin: positive: Warm, Dry Neurologic/Psychiatric: positive: Oriented x3, Other (Poor memory) Conclusion/Plan - Problem List (1) Confusion Conclusion/Plan: He has new altered mental status and the cause appears to be a UTI that has only partially been treated with 1 dose of IV antibiotic in the ER yesterday. He has not yet picked up his oral Vantin prescription Plan: Place in Observation Continue treating the UTI with empiric IV ceftriaxone Give IV fluids (2) UTI (urinary tract infection) Conclusion/Plan: The patient actually had criteria for sepsis yesterday and the source appears to be a complicated UTI, since there is possible prostatitis. The urine and blood cultures from yesterday's ER visit are still pending any resukts today. His CT abdomen done yesterday was consistent with an acute cystitis and possible prostatitis Plan: Cont to treat with IV antibiotics, using empiric iv Ceftriaxone. Await yesterday's blood cultures results and today's repeat blood cultures that were sent to lab Await urine culture results to tailor antibiotics He will need 14 to 21-day total course of antibiotics due to prostatism Give IV fluids Follow CBC daily, although we expect his baseline WBC to be around 20, due to CLL (3) CLL (chronic lymphocytic leukemia) Conclusion/Plan: As per history. He is chrinically mildly anemic and WBC runs 20-23, per our records He is not on any treatment for this according to records (4) Alcohol use Conclusion/Plan: The patient describes that he drinks 2 glasses of wine per day "or thereabouts". He is still confused, the is not present to confirm his history Plan: Will order CIWA protocol with as needed Ativan to give Start daily multivitamine and Thiamine (5) Hx of essential hypertension Conclusion/Plan: His reconciled med list shows he takes Losartan Plan: I will not start his Losartan given his resting BP of 114 systolic Continue IV fluid - Lab Results Fish Bones: 07/08/23 09:45 07/08/23 09:45 - Diagnostic Imaging Results Diagnostic Imaging Results: positive: Final report reviewed
[2023-07-08 11:44] LABS: BILIRUBIN,URINE NEGATIVE (NEGATIVE); GLUCOSE, URINE (UA) NEGATIVE (NEGATIVE); KETONES,URINE (UA) 15 mg/dL (NEGATIVE); LEUKOCYTE ESTERASE, URINE MODERATE (NEGATIVE); NITRITE,URINE NEGATIVE (NEGATIVE); OCCULT BLOOD,URINE MODERATE (NEGATIVE); PROTEIN,URINE 100 mg/dL (NEGATIVE); UROBILINOGEN,URINE 0.2 (NORMAL) E.U./dL (NORMAL)
[2023-07-08 11:50] LABS: BACTERIA,URINE Few /HPF (None Seen); CLARITY,URINE SL. CLOUDY (CLEAR); RBC,URINE TNTC /HPF (0-5); SQUAMOUS EPITHELIAL CELL,UR NONE SEEN (<= Few); WBC,URINE >25 /HPF (0-3)
[2023-07-08] MEDS: SODIUM CHLORIDE 0.9% 1,000 ML IV SCH (12:58)
[2023-07-08 13:24] LABS: B. PARAPERTUSSIS- RESP PCR PAN NOT DETECTED; B. PERTUSSIS- RESP PCR PANEL NOT DETECTED; C. PNEUMONIAE- RESP PCR PANEL NOT DETECTED; CORONAVIRUS 229E-RESP PCR NOT DETECTED; CORONAVIRUS HKU1-RESP PCR NOT DETECTED; CORONAVIRUS NL63-RESP PCR NOT DETECTED; CORONAVIRUS OC43-RESP PCR NOT DETECTED; HUMAN METAPNEUMOVIRUS NOT DETECTED; INFLUENZA A- RESP PCR PANEL NOT DETECTED; INFLUENZA B - RESP PCR PANEL NOT DETECTED; M. PNEUMONIAE- RESP PCR PANEL NOT DETECTED; PARAINFLUENZA VIRUS 1 NOT DETECTED; PARAINFLUENZA VIRUS 2 NOT DETECTED; PARAINFLUENZA VIRUS 3 NOT DETECTED; PARAINFLUENZA VIRUS 4 NOT DETECTED; RHINOVIRUS/ENTEROVIRUS NOT DETECTED; RSV- RESP PCR PANEL NOT DETECTED; SARS-CoV-2 -RESP PCR PANEL NOT DETECTED
[2023-07-08] MEDS: SODIUM CHLORIDE FLUSH 0.9% 10 ML SYRINGE IVP SCH (15:37)
[2023-07-08] MEDS ORDERED: LORazepam 2 MG/ML VIAL IVP PRN (15:40)
--- NOTE | 2023-07-08 16:42 | PHARMACY PROGRESS NOTE ---
- Best Possible Medication History Admit Date and Time: 07/08/23 1130 Processed by: Pharmacy Medications reviewed in ED?: Yes Medication History completed: Yes Patient Interview: Completed Secondary Source(s): Written medication list, Pharmacy records As the person ultimately responsible for medication therapy, providers are able to order a medication from an existing home medication list in [facility] via the "Reconcile Routine" prior to Confirmation of that medication by director sales support. Such practice is discouraged except when the physician, in their clinical judgment, deems that a medical need exists for a medication without regard to previous use.
[2023-07-08] MEDS: SACCHAROMYCES BOULARDII 250 MG CAPSULE PO SCH (17:12)
[2023-07-08] MEDS: GABAPENTIN 300 MG CAPSULE PO SCH (20:38)
[2023-07-09 07:44] LABS: BASOPHILS % (AUTO) 0.3 %; EOSINOPHILS % (AUTO) 0.2 %; HCT - HEMATOCRIT 30.1 % (42.0-52.0); HGB - HEMOGLOBIN 9.8 g/dL (14.0-18.0); LYMPHOCYTES % (AUTO) 37.5 %; MEAN CORPUSCULAR HEMOGLOBIN 30.8 pg (27.0-31.0); MEAN CORPUSCULAR HGB CONC 32.6 g/dL (32.0-36.0); MEAN CORPUSCULAR VOLUME 94.7 fL (80.0-94.0); MEAN PLATELET VOLUME 10.1 fL (7.4-11.4); MONOCYTES % (AUTO) 11.8 %; NEUTROPHILS % (AUTO) 48.7 %; PLT - PLATELET COUNT 110 10^3/uL (130-450); RED BLOOD COUNT 3.18 10^6/uL (4.70-6.10); RED CELL DISTRIBUTION WIDTH 15.3 % (12.0-15.0); WHITE BLOOD COUNT 22.2 x10^3/uL (4.8-10.8)
[2023-07-09 07:52] LABS: ABNORMAL LYMPHS % (MANUAL) 0 %
[2023-07-09 08:01] LABS: CALCIUM 7.9 mg/dL (8.5-10.3); CREATININE 1.1 mg/dL (0.6-1.3); POTASSIUM 3.5 mmol/L (3.5-4.5)
[2023-07-09 08:03] LABS: BAND NEUTROPHILS % (MANUAL) 2 %; LYMPHOCYTES % (MANUAL) 36 %; MONOCYTES # (MANUAL) 2.4 10^3/uL (0.0-1.0); NEUTROPHILS # (MANUAL) 11.8 10^3/uL (1.5-6.6)
[2023-07-09 08:04] LABS: DIFFERENTIAL COMMENT MANUAL DIFFERENTIAL; PLATELET ESTIMATE, MANUAL DECREASED (<130,000) (NORMAL); PLATELET MORPHOLOGY NORMAL APPEARANCE (NORMAL); RBC MORPHOLOGY (MULTIPLE) NORMAL APPEARANCE (NORMAL)
[2023-07-09] MEDS: THIAMINE 100 MG TABLET PO SCH (08:09)
[2023-07-09] MEDS: ENOXAPARIN 40 MG/0.4 ML SYRINGE SUBQ SCH (08:09)
[2023-07-09] MEDS: PRENATAL VITAMIN TABLET PO SCH (08:09)
[2023-07-09] MEDS: cefTRIAXone 1 GM in SODIUM CHLORIDE 0.9% MINIBAG 100 ML IV SCH (08:10)
[2023-07-09] MEDS: CONTRAVE PO SCH (08:10)
--- NOTE | 2023-07-09 09:27 | PROVIDER PROGRESS NOTE ---
Assessment/Plan - Problem List (1) Confusion Assessment/Plan: He still has confusion today, that persist despite IV antibiotics given for treatment of his UTI. He cannot remember what I told him yesterday about his diagnosis when I met him. is at bedside today and confirms that he is still not at his baseline mental status. I got details from her that he did not remember: he has ANDERSON on CPAP and is a pre-Diabetic. Plan: I will admit him from Observation to Inpatient status, since confusion persists Continue with management using IV fluids and IV antibiotics (2) Fall at home Assessment/Plan: The is at bedside today and gave me the sequence of events which this patient had over the last 2 to 3 days. There was no information in the first ER visit or the second ER visit that he fell possibly 5 times He fell 3 times, rolling out of bed on the day before the first ER visit. To construction workers were in the house and helped him up, supported him to walk to the bathroom and put him back in bed. They did this a second time and a third time. Then he had his first ER visit. The morning of the second ER visit it happened again and the was alone, could not lift him. She called his oncologist on the [facility] who advised that she call an ambulance and it was the ambulance crew that lifted him up and brought him to the ER. Patient does not think, and the does not know, if he hit himself anywhere Plan: Will do head CT Will check orthostatic vital signs and request PT and OT evals (Today is Monday and we have no PT or OT until Monday) Would image any areas where he describes pain. He denies pain anywhere and there is no bruising. (3) Enlarged prostate with lower urinary tract symptoms (LUTS) Assessment/Plan: at bedside gives me history that he had a TURP about 19 years ago. Over the last several weeks he has had urinary urgency and frequency. His CT abdomen/pelvis does reveal an enlarged prostate with a "small focus of enhancement along the peripheral zone of the prostate gland which could be malignancy". Plan: Urology consult will be request (4) UTI (urinary tract infection) Conclusion/Plan: The patient actually had criteria for sepsis during his first visit to ER, and the source appears to be a complicated UTI, since there is possible prostatitis. The urine and blood cultures from first ER visit are still pending, as well as this admission's urina and bld cx His CT abdomen done at the 1st ER visit, was consistent with acute cystitis (air in the bladder) and possible prostatitis Plan: Cont to treat with IV antibiotics, using empiric iv Ceftriaxone. Await 1st blood cultures results and repeat blood culture results to tailor antibx I suspect he will need 14 to 21-day total course of antibiotics due to prostatism. A Urology consult will be request Cont IV fluids Follow CBC daily, although we expect his baseline WBC to be elevated at around 20, due to CLL (5) ANDERSON on CPAP Today the is at bedside and was able to give me more patient's history, he has been on CPAP for ANDERSON since January 2023 which has helped him immensely with fatigue and fogginess Plan: I will order home CPAP device to be used here (6) CLL (chronic lymphocytic leukemia) Conclusion/Plan: As per history. He is chrinically mildly anemic and WBC runs 20-23, per our records He is not on any treatment for this according to records (7) Alcohol use Conclusion/Plan: The patient described that he drinks 2 glasses of wine per day "or thereabouts". He told the SW that he drinks 4 glasses of wine a day. Plan: Cont CIWA protocol with as needed Ativan to give Cont daily multivitamin and Thiamine (8) Hypertension Conclusion/Plan: His reconciled med list shows he takes Losartan. I had not yet restarted his Losartan given his resting BP of 114 systolic Plan: Since BP today is over 150, Losartan will be re-started Today I explained to why it was not resumed yet, when she questioned (9) Pre-diabetes Today the is at bedside and was able to give me more patient's history. He has been told he has pre-diabetes. She fixes him a Keto diet and requested that for him here. Plan: I ordered a Carb-4 diet Will check an A1c with tomorrow a.m. labs - Current Meds Current Meds: Current Medications Generic Name Dose Route Start Last Admin Trade Name Freq PRN Reason Stop Dose Admin Enoxaparin Sodium 40 mg 07/09/23 09:00 07/09/23 08:09 Enoxaparin 40 Mg/0.4 Ml Syringe SUBQ 40 mg DAILY THOMAS Administration Gabapentin 300 mg 07/08/23 21:00 07/08/23 20:38 Gabapentin 300 Mg Capsule PO Not Given HS THOMAS Sodium Chloride 1,000 mls @ 100 mls/hr 07/08/23 12:00 07/09/23 09:26 Normal Saline 0.9% IV 100 mls/hr .Q10H THOMAS Administration Ceftriaxone Sodium 1 gm/ 100 mls @ 200 mls/hr 07/09/23 09:00 07/09/23 08:10 Sodium Chloride IV 200 mls/hr DAILY THOMAS Administration Patient Own Med [ 1 each 07/09/23 09:00 07/09/23 08:10 Contrave Er 8-90 Mg PO Not Given Tablet] DAILY THOMAS Multivit/Folic Acid/Iron 1 tab 07/09/23 08:00 07/09/23 08:09 Vitamin Tablet PO 1 tab DAILYWM THOMAS Administration Saccharomyces Boulardii 250 mg 07/08/23 17:00 07/09/23 08:09 Saccharomyces Boulardii 250 Mg Capsule PO 250 mg BIDWM THOMAS Administration Sodium Chloride 10 ml 07/08/23 17:00 07/09/23 08:10 Sodium Chloride Flush 0.9% 10 Ml Syringe IVP Not Given 0100,0900,1700 THOMAS Thiamine HCl 100 mg 07/09/23 09:00 07/09/23 08:09 Thiamine 100 Mg Tablet PO 100 mg DAILY THOMAS Administration - Lab Result Fish Bone Diagrams: 07/09/23 07:37 07/09/23 07:37 - Other Other Results/Comments: Attestation: The patient is expected to be hospitalized for greater than 2 midnights and is expected to be discharged or transferred. to anothe r facility within 96 hours: Yes. - Additional Planning My Orders: My Active Orders 07/08/23 11:30 Activity Orders [RC] Q2HR IO [RC] IOSHIFT Incentive Spirometry - RT [RC] TID Initiate Bowel Care Protocol [RC] .protocol Initiate Line Care Protocol [RC] QSHIFT Initiate Personal Care Protoco [RC] .protocol Oxygen Therapy [RC] .PRN Vital Signs [RC] Q4HR Acetaminophen [Tylenol] 650 mg PO Q4HR PRN Ondansetron Inj [Zofran Inj] 4 mg IVP Q6HR PRN Sodium Chloride Flush 0.9% [Normal Saline Flush 0.9%] 10 ml IVP PRN PRN Code Status [OTHERS] Routine Condition of Patient [OTHERS] Routine DVT Prophylaxis [OTHERS] Routine 07/08/23 11:31 IV Insert [RC] .ONCE 07/08/23 11:32 Initiate Line Care Protocol [RC] QSHIFT 07/08/23 12:00 Sodium Chloride 0.9% [Normal Saline 0.9%] 1,000 ml IV 100 mls/hr 07/08/23 15:40 CIWA - AR Score Card [RC] Q4HR LORazepam INJ [Ativan Inj (Vial)] 1 mg IVP Q30M PRN 07/08/23 Dinner Soft Mechanical Diet [DIET] 07/08/23 17:00 Saccharomyces Boulardii [Florastor] 250 mg PO BIDWM Sodium Chloride Flush 0.9% [Normal Saline Flush 0.9%] 10 ml IVP 0100,0900,1700 07/08/23 21:00 Gabapentin [Neurontin] 300 mg PO HS 07/09/23 07:17 Vital Signs - Orthostatic [RC] DAILY 07/09/23 08:00 Vitamin [Trinatal Rx 1] 1 tab PO DAILYWM 07/09/23 09:00 Enoxaparin [Lovenox] 40 mg SUBQ DAILY Patient Own Med 1 each PO DAILY Thiamine [Vitamin B-1] 100 mg PO DAILY cefTRIAXone [Rocephin] 1 gm Sodium Chloride 0.9% Minibag [Normal Saline 0.9% Minibag] 100 ml IV DAILY 07/10/23 05:00 BMP - BASIC METABOLIC PANEL [CHEM] DAILYLAB CBC - COMP BLD CT W/AUTO DIFF [HEME] DAILYLAB Subjective - Subjective Patient Reports: Feeling Better Nursing Reports: Other (still forgetful and poor historian) Objective Vital Signs: Vital Signs - 24 hr 07/08/23 07/08/23 07/08/23 09:29 10:27 10:57 Temperature 38.9 C H Heart Rate 95 101 H 95 Heart Rate [ Brachial] Respiratory 21 24 21 Rate Blood Pressure 114/94 H 147/71 H 147/69 H Blood Pressure [Left Brachial artery] O2 Saturation 96 96 94 07/08/23 07/08/23 07/08/23 11:27 11:44 12:17 Temperature 37.2 C 38.0 C H Heart Rate 97 933 H Heart Rate [ Brachial] Respiratory 21 20 Rate Blood Pressure 135/74 H 127/67 Blood Pressure [Left Brachial artery] O2 Saturation 95 94 07/08/23 07/08/23 07/08/23 12:28 15:50 20:18 Temperature 37.2 C 36.5 C 36.7 C Heart Rate Heart Rate [ 86 75 92 Brachial] Respiratory 18 18 20 Rate Blood Pressure Blood Pressure 119/63 114/59 L 123/68 [Left Brachial artery] O2 Saturation 93 96 94 07/09/23 07/09/23 07/09/23 00:46 05:13 09:15 Temperature 37.1 C 37.1 C 36.7 C Heart Rate Heart Rate [ 85 87 88 Brachial] Respiratory 20 20 Rate Blood Pressure Blood Pressure 148/72 H 149/76 H [Left Brachial artery] O2 Saturation 93 93 95 Oxygen O2 Source Room air I&O (Last 24 Hrs): Intake and Output Totals x24h 07/07/23 07/08/23 07/09/23 23:59 23:59 23:59 Intake Total 4195 1350 Output Total 50 600 Balance 4145 750 General: Alert, Oriented x3, No acute distress HEENT: EOMI, Mucous membr. moist/pink Neck: Supple, No JVD Neuro: Alert, Non Focal, Other (Poor memory) Cardiovascular: Regular rate, No murmurs Respiratory: No respiratory distress, Breath sounds nml Abdomen: Soft, No tenderness Extremities: No clubbing, No edema, No tenderness/swelling - Results Results: Laboratory Results WBC 22.2 x10^3/uL (4.8-10.8) H 07/09/23 07:37 RBC 3.18 10^6/uL (4.70-6.10) L 07/09/23 07:37 Hgb 9.8 g/dL (14.0-18.0) L 07/09/23 07:37 Hct 30.1 % (42.0-52.0) L 07/09/23 07:37 MCV 94.7 fL (80.0-94.0) H 07/09/23 07:37 MCH 30.8 pg (27.0-31.0) 07/09/23 07:37 MCHC 32.6 g/dL (32.0-36.0) 07/09/23 07:37 RDW 15.3 % (12.0-15.0) H 07/09/23 07:37 Plt Count 110 10^3/uL (130-450) L 07/09/23 07:37 MPV 10.1 fL (7.4-11.4) 07/09/23 07:37 Neut # (Auto) Not Reportable 07/09/23 07:37 Lymph # (Auto) Not Reportable 07/09/23 07:37 Boundary # (Auto) Not Reportable 07/09/23 07:37 Eos # (Auto) Not Reportable 07/09/23 07:37 Baso # (Auto) Not Reportable 07/09/23 07:37 Absolute Nucleated RBC Not Reportable 07/09/23 07:37 Total Counted 100 07/09/23 07:37 Band Neuts % (Manual) 2 % (0-10) 07/09/23 07:37 Abnorm Lymph % (Manual) 0 % 07/09/23 07:37 Metamyelocytes % 1 % (-0) H 07/08/23 09:45 Nucleated RBC % Not Reportable 07/09/23 07:37 Neutrophils # (Manual) 11.8 10^3/uL (1.5-6.6) H 07/09/23 07:37 Lymphocytes # (Manual) 8.0 10^3/uL (1.5-3.5) H 07/09/23 07:37 Monocytes # (Manual) 2.4 10^3/uL (0.0-1.0) H 07/09/23 07:37 Eosinophils # (Manual) 0.0 10^3/uL (0-0.7) 07/09/23 07:37 Basophils # (Manual) 0.0 10^3/uL (0-0.1) 07/09/23 07:37 Differential Comment MANUAL DIFFERENTIAL 07/09/23 07:37 Platelet Estimate DECREASED (<130,000) (NORMAL) 07/09/23 07:37 Platelet Morphology NORMAL APPEARANCE (NORMAL) 07/09/23 07:37 RBC Morph Micro Appear NORMAL APPEARANCE (NORMAL) 07/09/23 07:37 Sodium 135 mmol/L (135-145) 07/09/23 07:37 Potassium 3.5 mmol/L (3.5-4.5) 07/09/23 07:37 Chloride 107 mmol/L (101-111) 07/09/23 07:37 Carbon Dioxide 21 mmol/L (21-32) 07/09/23 07:37 Anion Gap 7.0 (6-13) 07/09/23 07:37 BUN 20 mg/dL (6-20) 07/09/23 07:37 Creatinine 1.1 mg/dL (0.6-1.3) 07/09/23 07:37 Estimated GFR (MDRD) 65 (>89) L 07/09/23 07:37 Glucose 112 mg/dL (74-104) H 07/09/23 07:37 Lactic Acid 1.0 mmol/L (0.5-2.2) 07/08/23 09:45 Calcium 7.9 mg/dL (8.5-10.3) L 07/09/23 07:37 Total Bilirubin 2.2 mg/dL (0.2-1.0) H 07/08/23 09:45 AST 24 IU/L (10-42) 07/08/23 09:45 ALT 21 IU/L (10-60) 07/08/23 09:45 Alkaline Phosphatase 51 IU/L (42-121) 07/08/23 09:45 B-Natriuretic Peptide 416 pg/mL (5-100) H 07/08/23 09:45 Total Protein 6.7 g/dL (6.4-8.9) 07/08/23 09:45 Albumin 4.1 g/dL (3.2-5.5) 07/08/23 09:45 Globulin 2.6 g/dL (2.1-4.2) 07/08/23 09:45 Albumin/Globulin Ratio 1.6 (1.0-2.2) 07/08/23 09:45 Free PSA 12.281 ng/mL (0.16-2.81) H 07/08/23 10:00 % Free PSA 39 % (25-100) 07/08/23 10:00 Total PSA 31.243 ng/mL (0.000-2.000) H 07/08/23 10:00 Urine Color YELLOW 07/08/23 11:40 Urine Clarity SL. CLOUDY (CLEAR) 07/08/23 11:40 Urine pH 6.0 PH (5.0-7.5) 07/08/23 11:40 Ur Specific [place] 1.020 (1.002-1.030) 07/08/23 11:40 Urine Protein 100 mg/dL (NEGATIVE) H 07/08/23 11:40 Urine Glucose (UA) NEGATIVE mg/dL (NEGATIVE) 07/08/23 11:40 Urine Ketones 15 mg/dL (NEGATIVE) H 07/08/23 11:40 Urine Occult Blood MODERATE (NEGATIVE) H 07/08/23 11:40 Urine Nitrite NEGATIVE (NEGATIVE) 07/08/23 11:40 Urine Bilirubin NEGATIVE (NEGATIVE) 07/08/23 11:40 Urine Urobilinogen 0.2 (NORMAL) E.U./dL (NORMAL) 07/08/23 11:40 Ur Leukocyte Esterase MODERATE (NEGATIVE) H 07/08/23 11:40 Urine RBC TNTC /HPF (0-5) H 07/08/23 11:40 Urine WBC >25 /HPF (0-3) H 07/08/23 11:40 Ur Squamous Epith Cells NONE SEEN (<= Few) 07/08/23 11:40 Urine Bacteria Few /HPF (None Seen) 07/08/23 11:40 Urine Culture Comments INDICATED 07/08/23 11:40 Nasal Adenovirus (PCR) NOT DETECTED 07/08/23 11:55 Nasal B. parapertussis DNA (PCR) NOT DETECTED 07/08/23 11:55 Nasal Coronavir 229E PCR NOT DETECTED 07/08/23 11:55 Nasal Coronavir HKU1 PCR NOT DETECTED 07/08/23 11:55 Nasal Coronavir NL63 PCR NOT DETECTED 07/08/23 11:55 Nasal Coronavir OC43 PCR NOT DETECTED 07/08/23 11:55 Nasal Enterovir/Rhinovir PCR NOT DETECTED 07/08/23 11:55 Nasal Influenza B PCR NOT DETECTED 07/08/23 11:55 Nasal Influenza A PCR NOT DETECTED 07/08/23 11:55 Nasal Parainfluen 1 PCR NOT DETECTED 07/08/23 11:55 Nasal Parainfluen 2 PCR NOT DETECTED 07/08/23 11:55 Nasal Parainfluen 3 PCR NOT DETECTED 07/08/23 11:55 Nasal Parainfluen 4 PCR NOT DETECTED 07/08/23 11:55 Nasal RSV (PCR) NOT DETECTED 07/08/23 11:55 Nasal B.pertussis DNA PCR NOT DETECTED 07/08/23 11:55 Nasal C.pneumoniae (PCR) NOT DETECTED 07/08/23 11:55 Dru Human Metapneumo PCR NOT DETECTED 07/08/23 11:55 Nasal M.pneumoniae (PCR) NOT DETECTED 07/08/23 11:55 Nasal SARS-CoV-2 (PCR) NOT DETECTED 07/08/23 11:55
[2023-07-09] MEDS: LOSARTAN 50 MG TABLET PO SCH (13:10)
--- NOTE | 2023-07-09 18:50 | CT Report ---
PROCEDURE: Head WO INDICATIONS: Several falls at home, 1 day and 2 days ago TECHNIQUE: Noncontrast 4.5 mm thick angled axial sections acquired from the foramen magnum to the vertex. For r adiation dose reduction, the following was used: automated exposure control, adjustment of mA and/or kV according to patient size. COMPARISON: None. FINDINGS: Image quality: Excellent. CSF spaces: Basal cisterns are patent. No extra-axial fluid collections. Ventricles are normal in size and shape. Brain: No midline shift. No intracranial masses or hemorrhage. Aguilar-white matter interface is norm al. Skull and face: Calvarium and visualized facial bones are intact, without suspicious lesions. Sinuses: Visualized sinuses and mastoids are clear. IMPRESSION: No intracranial hemorrhage is seen. No acute intracranial pathology. Reviewed by: Joe Hernández MD on 07/09/2023 4:24 PM [facility] Approved by: Joe Hernández MD on 07/09/2023 4:24 PM [facility] Station ID: [id number]
[2023-07-09] MEDS: ASCORBIC ACID 500 MG TABLET PO SCH (20:03)
[2023-07-09] MEDS ORDERED: MELATONIN 10 MG PO SCH (21:00)
[2023-07-10 05:44] LABS: BASOPHILS % (AUTO) 0.2 %; EOSINOPHILS % (AUTO) 0.9 %; HGB - HEMOGLOBIN 9.3 g/dL (14.0-18.0); LYMPHOCYTES % (AUTO) 41.8 %; MEAN CORPUSCULAR HEMOGLOBIN 31.2 pg (27.0-31.0); MEAN CORPUSCULAR HGB CONC 33.2 g/dL (32.0-36.0); MEAN PLATELET VOLUME 10.8 fL (7.4-11.4); MONOCYTES % (AUTO) 16.2 %; NEUTROPHILS % (AUTO) 40.5 %; PLT - PLATELET COUNT 112 10^3/uL (130-450); RED BLOOD COUNT 2.98 10^6/uL (4.70-6.10); WHITE BLOOD COUNT 16.4 x10^3/uL (4.8-10.8)
[2023-07-10 06:03] LABS: CALCIUM 7.8 mg/dL (8.5-10.3); POTASSIUM 3.6 mmol/L (3.5-4.5)
[2023-07-10 06:04] LABS: ABNORMAL LYMPHS % (MANUAL) 0 %; BAND NEUTROPHILS % (MANUAL) 0 %
[2023-07-10 06:45] LABS: EOSINOPHILS # (MANUAL) 0.3 10^3/uL (0-0.7); LYMPHOCYTES % (MANUAL) 42 %; MONOCYTES # (MANUAL) 0.7 10^3/uL (0.0-1.0); NEUTROPHILS # (MANUAL) 7.4 10^3/uL (1.5-6.6); REACTIVE LYMPHS % (MANUAL) 7 %
[2023-07-10 06:46] LABS: DIFFERENTIAL COMMENT MANUAL DIFFERENTIAL; PLATELET ESTIMATE, MANUAL NORMAL (130-450,000) (NORMAL); PLATELET MORPHOLOGY NORMAL APPEARANCE (NORMAL)
[2023-07-10] MEDS ORDERED: NALTREXONE HCL 4.5 MG PO SCH (09:00)
[2023-07-10] MEDS ORDERED: ASHWAGANDHA ROOT EXTRACT 500 MG PO SCH (09:00)
--- NOTE | 2023-07-10 10:10 | CONSULTATION NOTE ---
Referring Provider Name of Referring Provider:: Dr Jimenez Consult Date: 07/10/23 Chief Complaint - Chief Complaint Chief Complaint: UTI History of Present Illness - Admitted From Admitted From:: ER - History Obtained From Records Reviewed: EMR History obtained from: EMR and patient Exam Limitations: none - History of Present Illness HPI Comment/Other: 77-year-old male with history of TURP around 14 years ago presented to the hospital a few days ago with mental confusion and likely urinary tract infection.A urine culture was performed confirming grade 100,000 CFU's of Pseudomonas aeruginosa. As he was febrile and his mental status was atypical he was asked to stay at the hospital but he adamantly refused and was deemed to have capacity and was sent home on the . He returned again the next day at behest of his as his mental confusion had worsened. On the he was again febrile. He was admitted for further evaluation. He was started on empiric ceftriaxone therapy was we were awaiting the previously mentioned cultures. He had a leukocytosisto 29,000 which has slowly improved to 16,000 today. A PSA was performed which was over 30. He had a CT scan which showed no obstruction or stones but possibly some inflammation in the prostate. He states he is feeling much better these days. He states he does have some baseline frequency and urgency but takes no medications for this. He states he has had his PSA checked regularly and has always been okay. He denies prior biopsy or diagnosis of prostate cancer History - Past Medical History Cardiovascular: reports: None Respiratory: reports: None Neuro: reports: None Endocrine/Autoimmune: reports: None GI: reports: None : reports: None Psych: reports: None Musculoskeletal: reports: Osteoarthritis MRSA Hx?: No Other Past Medical History: CLL - Past Surgical History Ortho: reports: Knee replacement - Family & Social History Family History Comment/Other: Skin cancer runs in the family Living arrangement: At home Living Situation: With spouse/s.o. Social History Notes: He lives with his . He cannot remember what he retired from doing. He does not smoke and never smoked cigarettes. He drinks about 2 glasses of wine per night - Substance History Use: Uses substance without health or social issues: NONE - POLST Patient has POLST: No Meds/Allgy - Home Medications Home Medications: Ambulatory Orders Medication Instructions Recorded Confirmed Losartan [Cozaar] 50 mg PO DAILY 05/06/19 07/08/23 Ascorbic Acid [Vitamin C] 1,000 mg PO BID 07/08/23 07/08/23 Ashwagandha Root Extract 500 mg PO DAILY 07/08/23 07/08/23 [Ashwagandha] Melatonin 20 mg PO HS 07/08/23 07/08/23 Naltrexone HCl [Lotrexone] 4.5 mg PO DAILY 07/08/23 07/08/23 [place]-3S/Dha/Epa/Fish Oil/D3 1 cap PO DAILY 07/08/23 07/08/23 [Duqxs-0-Ktdd Oil-Vit D3 Sftgl] Ubidecarenone [Co Q-10] 200 mg PO DAILY 07/08/23 07/08/23 - Allergies Allergies/Adverse Reactions: Allergies Allergy/AdvReac Type Severity Reaction Status Date / Time No Known Drug Allergies Allergy Verified 07/07/23 15:29 Exam - Vital Signs Reviewed Vital Signs: Yes Vital Signs: Vital Signs x48h Temp Pulse Resp BP Pulse Ox 07/10/23 07:54 36.7 C 77 18 153/83 H 95 - Physical Exam General Appearance: positive: No acute distress Abdomen: positive: Non-tender Conclusion and Plan - Lab Results Microbiology Results 07/08/23 11:40 Urine,Random Urine Culture - Final LESS THAN 10,000 COLONIES/ML polymicrobial growth including potential pathogens. This is suggestive of skin or other contamination. Laboratory Results 07/10/23 07:28: POC Whole Bld Glucose 97 07/10/23 05:20: Albumin 3.1 L 07/10/23 05:20: Sodium 136, Potassium 3.6, Chloride 108, Carbon Dioxide 22, Anion Gap 6.0, BUN 17, Creatinine 1.0, Estimated GFR (MDRD) 72 L, Glucose 103, Calcium 7.8 L 07/10/23 05:20: WBC 16.4 H, RBC 2.98 L, Hgb 9.3 L, Hct 28.0 L, MCV 94.0, MCH 31.2 H, MCHC 33.2, RDW 15.0, Plt Count 112 L, MPV 10.8, Neut # (Auto) Not Reportable, Lymph # (Auto) Not Reportable, [place] # (Auto) Not Reportable, Eos # (Auto) Not Reportable, Baso # (Auto) Not Reportable, Absolute Nucleated RBC Not Reportable, Total Counted 100, Band Neuts % (Manual) 0, Reactive Lymphs % (Man) 7, Abnorm Lymph % (Manual) 0, Nucleated RBC % Not Reportable, Neutrophils # (Manual) 7.4 H, Lymphocytes # (Manual) 8.0 H, Monocytes # (Manual) 0.7, E osinophils # (Manual) 0.3, Basophils # (Manual) 0.0, Differential Comment MANUAL DIFFERENTIAL, Platelet Estimate NORMAL (130-450,000), Platelet Morphology NORMAL APPEARANCE 07/09/23 07:37: Sodium 135, Potassium 3.5, Chloride 107, Carbon Dioxide 21, Anion Gap 7.0, BUN 20, Creatinine 1.1, Estimated GFR (MDRD) 65 L, Glucose 112 H, Calcium 7.9 L 07/09/23 07:37: WBC 22.2 H, RBC 3.18 L, Hgb 9.8 L, Hct 30.1 L, MCV 94.7 H, MCH 30.8, MCHC 32.6, RDW 15.3 H, Plt Count 110 L, MPV 10.1, Neut # (Auto) Not Reportable, Lymph # (Auto) Not Reportable, [place] # (Auto) Not Reportable, Eos # (Auto) Not Reportable, Baso # (Auto) Not Reportable, Absolute Nucleated RBC Not Reportable, Total Counted 100, Band Neuts % (Manual) 2, Abnorm Lymph % (Manual) 0, Nucleated RBC % Not Reportable, Neutrophils # (Manual) 11.8 H, Lymphocytes # (Manual) 8.0 H, Monocytes # (Manual) 2.4 H, Eosinophils # (Manual) 0.0, Basophils # (Manual) 0.0, Differential Comment MANUAL DIFFERENTIAL, Platelet Estimate DECREASED (<130,000), Platelet Morphology NORMAL APPEARANCE, RBC Morph Micro Appear NORMAL APPEARANCE 07/08/23 11:55: Nasal Adenovirus (PCR) NOT DETECTED, Nasal B. parapertussis DNA (PCR) NOT DETECTED, Nasal Coronavir 229E PCR NOT DETECTED, Nasal Coronavir HKU1 PCR NOT DETECTED, Nasal Coronavir NL63 PCR NOT DETECTED, Nasal Coronavir OC43 PCR NOT DETECTED, Nasal Enterovir/Rhinovir PCR NOT DETECTED, Nasal Influenza B PCR NOT DETECTED, Nasal Influenza A PCR NOT DETECTED, Nasal Parainfluen 1 PCR NOT DETECTED, Nasal Parainfluen 2 PCR NOT DETECTED, Nasal Parainfluen 3 PCR NOT DETECTED, Nasal Parainfluen 4 PCR NOT DETECTED, Nasal RSV (PCR) NOT DETECTED, Nasal B.pertussis DNA PCR NOT DETECTED, Nasal C.pneumoniae (PCR) NOT DETECTED, Dru Human Metapneumo PCR NOT DETECTED, Nasal M.pneumoniae (PCR) NOT DETECTED, Nasal SARS-CoV-2 (PCR) NOT DETECTED 07/08/23 11:40: Urine Color YELLOW, Urine Clarity SL. CLOUDY, Urine pH 6.0, Ur Specific [place] 1.020, Urine Protein 100 H, Urine Glucose (UA) NEGATIVE, Urine Ketones 15 H, Urine Occult Blood MODERATE H, Urine Nitrite NEGATIVE, Urine Bilirubin NEGATIVE, Urine Urobilinogen 0.2 (NORMAL), Ur Leukocyte Esterase MODERATE H, Urine RBC TNTC H, Urine WBC >25 H, Ur Squamous Epith Cells NONE SEEN, Urine Bacteria Few, Urine Culture Comments INDICATED 07/08/23 10:00: Free PSA 12.281 H, % Free PSA 39, Total PSA 31.243 H 07/08/23 09:45: B-Natriuretic Peptide 416 H 07/08/23 09:45: Lactic Acid 1.0 07/08/23 09:45: Sodium 137, Potassium 3.6, Chloride 103, Carbon Dioxide 26, Anion Gap 8.0, BUN 20, Creatinine 1.3, Estimated GFR (MDRD) 53 L, Glucose 132 H, Calcium 9.2, Total Bilirubin 2.2 H, AST 24, ALT 21, Alkaline Phosphatase 51, Total Protein 6.7, Albumin 4.1, Globulin 2.6, Albumin/Globulin Ratio 1.6 07/08/23 09:45: WBC 25.5 H, RBC 3.80 L, Hgb 11.7 L, Hct 35.7 L, MCV 93.9, MCH 30.8, MCHC 32.8, RDW 15.2 H, Plt Count 138, MPV 10.7, Neut # (Auto) Not Reportable, Lymph # (Auto) Not Reportable, [place] # (Auto) Not Reportable, Eos # (Auto) Not Reportable, Baso # (Auto) Not Reportable, Absolute Nucleated RBC Not Reportable, Total Counted 100, Band Neuts % (Manual) 4, Abnorm Lymph % (Manual) 0, Metamyelocytes % 1 H, Nucleated RBC % Not Reportable, Neutrophils # (Manual) 11.5 H, Lymphocytes # (Manual) 13.0 H, Monocytes # (Manual) 0.8, Eosinophils # (Manual) 0.0, Basophils # (Manual) 0.0, Differential Comment MANUAL DIFFERENTIAL, Platelet Estimate DECREASED (<130,000), Platelet Morphology NORMAL APPEARANCE, RBC Morph Micro Appear NORMAL APPEARANCE - Diagnostic Imaging Results Diagnostic Imaging Results: positive: Read independently - Diagnosis Diagnosis: Possible acute bacterial prostatitis. Pseudomonas UTI. Elevated PSA - Consultation Note Consultation Note: 77-year-old male with history of TURP 14 years ago now with a Pseudomonas UTI with likely prostate inflammation versus prostatitis leading to elevated PSA - Plan Plan: No acute intervention required Please switch him over to culture recommended antibiotics. Recommend ciprofloxacin 500 mg twice daily orally versus levofloxacin 750 mg daily. He should be on antibiotics for 2 weeks. He should avoid any exercise or straining as this can cause tendon rupture I will have him follow-up with me in 6 weeks time with a PSA blood test.My office will arrange this
--- NOTE | 2023-07-10 12:30 | PROVIDER PROGRESS NOTE ---
Assessment/Plan - Problem List (1) Pseudomonas urinary tract infection Assessment/Plan: The patient actually had criteria for sepsis during his first visit to ER, and the source of infection is a complicated UTI, since there is cystitis with possible prostatitis. The blood cultures from first ER visit are thus far neg, but the urine cx from first ER visit is growing Pseudomonas, Resistant to Cefazolin His CT abdomen done at the 1st ER visit, was consistent with acute cystitis (air in the bladder) and possible prostatitis Plan: I will change the empirically started iv Ceftriaxone to iv Levaquin Cont probiotic Await both blood cultures results to determine duration of antibx Appreciate Urology consult, agree with change to appropriate antibx. Dr Mena recommended a 14 day total antibx course Cont IV fluids, decreasing rate when not orthostatic Follow CBC daily, although we expect his baseline WBC to be elevated at around 20, due to CLL (2) Confusion He still has confusion today, that persist despite IV antibiotics given for treatment of his UTI. He remembers my name ("Dr Gage"), cannot remember what I told him the last few days confirmed that he is still not at his baseline mental status. I also got details from her that he did not remember: he has ANDERSON on CPAP and is a pre- Diabetic. Plan: Continue with management using IV fluids and changing to appropriate IV antibiotics PT and OT to start working with him today I spoke to the by phone today, and brought her up-to-date (3) Fall at home Assessment/Plan: The gave me the sequence of events which this patient had over the last 2 to 3 days. There was no information in the first ER visit or the second ER visit that he fell possibly 5 times He fell 3 times, rolling out of bed on the day before the first ER visit. To construction workers were in the house and helped him up, supported him to walk to the bathroom and put him back in bed. They did this a second time and a third time. Then he had his first ER visit. The morning of the second ER visit it happened again and the was alone, could not lift him. She called his oncologist on the [facility] who advised that she call an ambulance and it was the ambulance crew that lifted him up and brought him to the ER. Patient does not think, and the does not know, if he hit himself anywhere. He denies pain anywhere and there is no bruising. A Head CT was done after adm and was neg. Plan: Will check orthostatic vital signs and request PT and OT jade (4) Enlarged prostate with lower urinary tract symptoms (LUTS) Assessment/Plan: at bedside gives me history that he had a TURP about 19 years ago. Over the last several weeks he has had urinary urgency and frequency. His CT abdomen/pelvis does reveal an enlarged prostate with a "small focus of enhancement along the peripheral zone of the prostate gland which could be malignancy". Plan: Urology consult appreciated. Pt needs a Urol outpt appt in 6 weeks, per Dr Mena (5) ANDERSON on CPAP The was able to give me more patient's history, he has been on CPAP for ANDERSON since January 2023 which has helped him immensely with fatigue and fogginess Plan: I ordered home CPAP device to be used here (6) CLL (chronic lymphocytic leukemia) Conclusion/Plan: As per history. He is chrinically mildly anemic and WBC runs 20-23, per our records He is not on any treatment for this according to records (7) Alcohol use Conclusion/Plan: The patient described that he drinks 2 glasses of wine per day "or thereabouts". He told the SW that he drinks 4 glasses of wine a day. He has been scoring 0 on a CIWA protocol but today he is at ~72 hours since last alcohol intake. Plan: Cont CIWA protocol with as needed Ativan to give. CIWA protocol could be stopped after tomorrow if no withdrawal sx Cont daily multivitamin and Thiamine (8) Hypertension Conclusion/Plan: His reconciled med list shows he takes Losartan. It was not resumed until yesterday, because he had a resting BP of 114 systolic his 1st day Plan: Losartan was re-started Will monitor orthostatic vital signs (9) Pre-diabetes Today the is at bedside and was able to give me more patient's history. He has been told he has pre-diabetes. She fixes him a Keto diet and requested that for him here. Plan: I ordered a Carb-4 diet Will check an A1c with a.m. labs - Current Meds Current Meds: Current Medications Generic Name Dose Route Start Last Admin Trade Name Freq PRN Reason Stop Dose Admin Ascorbic Acid 1,000 mg 07/09/23 21:00 07/10/23 08:41 Ascorbic Acid 500 Mg Tablet PO 1,000 mg BID THOMAS Administration Enoxaparin Sodium 40 mg 07/09/23 09:00 07/10/23 08:41 Enoxaparin 40 Mg/0.4 Ml Syringe SUBQ 40 mg DAILY THOMAS Administration Gabapentin 300 mg 07/08/23 21:00 07/09/23 20:03 Gabapentin 300 Mg Capsule PO Not Given HS THOMAS Sodium Chloride 1,000 mls @ 100 mls/hr 07/08/23 12:00 07/10/23 05:28 Normal Saline 0.9% IV 100 mls/hr .Q10H THOMAS Administration Losartan Potassium 50 mg 07/09/23 13:00 07/10/23 08:46 Losartan 50 Mg Tablet PO 50 mg DAILY THOMAS Administration Multivit/Folic Acid/Iron 1 tab 07/09/23 08:00 07/10/23 08:42 Vitamin Tablet PO 1 tab DAILYWM THOMAS Administration Saccharomyces Boulardii 250 mg 07/08/23 17:00 07/10/23 08:42 Saccharomyces Boulardii 250 Mg Capsule PO 250 mg BIDWM THOMAS Administration Sodium Chloride 10 ml 07/08/23 17:00 07/10/23 08:42 Sodium Chloride Flush 0.9% 10 Ml Syringe IVP 10 ml 0100,0900,1700 THOMAS Administration Thiamine HCl 100 mg 07/09/23 09:00 07/10/23 08:42 Thiamine 100 Mg Tablet PO 100 mg DAILY THOMAS Administration - Lab Result Fish Bone Diagrams: 07/10/23 05:20 07/10/23 05:20 - Additional Planning My Orders: My Active Orders 07/09/23 13:00 Losartan [Cozaar] 50 mg PO DAILY 07/09/23 Dinner Carb-controlled Diet [DIET] 07/09/23 21:00 Ascorbic Acid [Vitamin C] 1,000 mg PO BID 07/10/23 Evaluate and Treat OT [OT] Routine Evaluate and Treat PT [PT] Routine 07/10/23 13:00 [place]-3 Acid Ethyl Esters [Lovaza] 1 gm PO DAILY 07/11/23 05:00 BMP - BASIC METABOLIC PANEL [CHEM] DAILYLAB CBC - COMP BLD CT W/AUTO DIFF [HEME] DAILYLAB Subjective - Subjective Patient Reports: Feeling Better Nursing Reports: Other (Was trying to get up on his own, seems impulsive and forgetful, per RN) Objective Vital Signs: Vital Signs - 24 hr 07/09/23 07/09/23 07/10/23 13:11 15:29 00:33 Temperature 36.9 C 37.1 C 36.6 C Heart Rate [ 93 83 81 Brachial] Respiratory 18 20 20 Rate Blood Pressure 134/77 H [Left Brachial artery] Blood Pressure 153/93 H 158/93 H [Right Brachial artery] O2 Saturation 95 96 97 07/10/23 07:54 Temperature 36.7 C Heart Rate [ 77 Brachial] Respiratory 18 Rate Blood Pressure 153/83 H [Left Brachial artery] Blood Pressure [Right Brachial artery] O2 Saturation 95 Oxygen O2 Source Room air I&O (Last 24 Hrs): Intake and Output Totals x24h 07/08/23 07/09/23 07/10/23 23:59 23:59 23:59 Intake Total 4195 3090.000 1240 Output Total 50 675 595 Balance 4145 2415.000 645 General: Alert, Oriented x3 HEENT: EOMI, Mucous membr. moist/pink Neck: Supple, No JVD Neuro: Alert, Non Focal, Other (Poor memory. He chuckles with many of his answers to me) Cardiovascular: Regular rate, No murmurs Respiratory: No respiratory distress Abdomen: Normal bowel sounds, Soft Extremities: No edema, No tenderness/swelling - Results Results: Laboratory Results WBC 16.4 x10^3/uL (4.8-10.8) H 07/10/23 05:20 RBC 2.98 10^6/uL (4.70-6.10) L 07/10/23 05:20 Hgb 9.3 g/dL (14.0-18.0) L 07/10/23 05:20 Hct 28.0 % (42.0-52.0) L 07/10/23 05:20 MCV 94.0 fL (80.0-94.0) 07/10/23 05:20 MCH 31.2 pg (27.0-31.0) H 07/10/23 05:20 MCHC 33.2 g/dL (32.0-36.0) 07/10/23 05:20 RDW 15.0 % (12.0-15.0) 07/10/23 05:20 Plt Count 112 10^3/uL (130-450) L 07/10/23 05:20 MPV 10.8 fL (7.4-11.4) 07/10/23 05:20 Neut # (Auto) Not Reportable 07/10/23 05:20 Lymph # (Auto) Not Reportable 07/10/23 05:20 [place] # (Auto) Not Reportable 07/10/23 05:20 Eos # (Auto) Not Reportable 07/10/23 05:20 Baso # (Auto) Not Reportable 07/10/23 05:20 Absolute Nucleated RBC Not Reportable 07/10/23 05:20 Total Counted 100 07/10/23 05:20 Band Neuts % (Manual) 0 % (0-10) 07/10/23 05:20 Reactive Lymphs % (Man) 7 % 07/10/23 05:20 Abnorm Lymph % (Manual) 0 % 07/10/23 05:20 Metamyelocytes % 1 % (-0) H 07/08/23 09:45 Nucleated RBC % Not Reportable 07/10/23 05:20 Neutrophils # (Manual) 7.4 10^3/uL (1.5-6.6) H 07/10/23 05:20 Lymphocytes # (Manual) 8.0 10^3/uL (1.5-3.5) H 07/10/23 05:20 Monocytes # (Manual) 0.7 10^3/uL (0.0-1.0) 07/10/23 05:20 Eosinophils # (Manual) 0.3 10^3/uL (0-0.7) 07/10/23 05:20 Basophils # (Manual) 0.0 10^3/uL (0-0.1) 07/10/23 05:20 Differential Comment MANUAL DIFFERENTIAL 07/10/23 05:20 Platelet Estimate NORMAL (130-450,000) (NORMAL) 07/10/23 05:20 Platelet Morphology NORMAL APPEARANCE (NORMAL) 07/10/23 05:20 RBC Morph Micro Appear NORMAL APPEARANCE (NORMAL) 07/09/23 07:37 Sodium 136 mmol/L (135-145) 07/10/23 05:20 Potassium 3.6 mmol/L (3.5-4.5) 07/10/23 05:20 Chloride 108 mmol/L (101-111) 07/10/23 05:20 Carbon Dioxide 22 mmol/L (21-32) 07/10/23 05:20 Anion Gap 6.0 (6-13) 07/10/23 05:20 BUN 17 mg/dL (6-20) 07/10/23 05:20 Creatinine 1.0 mg/dL (0.6-1.3) 07/10/23 05:20 Estimated GFR (MDRD) 72 (>89) L 07/10/23 05:20 Glucose 103 mg/dL (74-104) 07/10/23 05:20 POC Whole Bld Glucose 97 mg/dL (70 - 100) 07/10/23 07:28 Lactic Acid 1.0 mmol/L (0.5-2.2) 07/08/23 09:45 Calcium 7.8 mg/dL (8.5-10.3) L 07/10/23 05:20 Total Bilirubin 2.2 mg/dL (0.2-1.0) H 07/08/23 09:45 AST 24 IU/L (10-42) 07/08/23 09:45 ALT 21 IU/L (10-60) 07/08/23 09:45 Alkaline Phosphatase 51 IU/L (42-121) 07/08/23 09:45 B-Natriuretic Peptide 416 pg/mL (5-100) H 07/08/23 09:45 Total Protein 6.7 g/dL (6.4-8.9) 07/08/23 09:45 Albumin 3.1 g/dL (3.2-5.5) L 07/10/23 05:20 Globulin 2.6 g/dL (2.1-4.2) 07/08/23 09:45 Albumin/Globulin Ratio 1.6 (1.0-2.2) 07/08/23 09:45 Free PSA 12.281 ng/mL (0.16-2.81) H 07/08/23 10:00 % Free PSA 39 % (25-100) 07/08/23 10:00 Total PSA 31.243 ng/mL (0.000-2.000) H 07/08/23 10:00 Urine Color YELLOW 07/08/23 11:40 Urine Clarity SL. CLOUDY (CLEAR) 07/08/23 11:40 Urine pH 6.0 PH (5.0-7.5) 07/08/23 11:40 Ur Specific [place] 1.020 (1.002-1.030) 07/08/23 11:40 Urine Protein 100 mg/dL (NEGATIVE) H 07/08/23 11:40 Urine Glucose (UA) NEGATIVE mg/dL (NEGATIVE) 07/08/23 11:40 Urine Ketones 15 mg/dL (NEGATIVE) H 07/08/23 11:40 Urine Occult Blood MODERATE (NEGATIVE) H 07/08/23 11:40 Urine Nitrite NEGATIVE (NEGATIVE) 07/08/23 11:40 Urine Bilirubin NEGATIVE (NEGATIVE) 07/08/23 11:40 Urine Urobilinogen 0.2 (NORMAL) E.U./dL (NORMAL) 07/08/23 11:40 Ur Leukocyte Esterase MODERATE (NEGATIVE) H 07/08/23 11:40 Urine RBC TNTC /HPF (0-5) H 07/08/23 11:40 Urine WBC >25 /HPF (0-3) H 07/08/23 11:40 Ur Squamous Epith Cells NONE SEEN (<= Few) 07/08/23 11:40 Urine Bacteria Few /HPF (None Seen) 07/08/23 11:40 Urine Culture Comments INDICATED 07/08/23 11:40 Nasal Adenovirus (PCR) NOT DETECTED 07/08/23 11:55 Nasal B. parapertussis DNA (PCR) NOT DETECTED 07/08/23 11:55 Nasal Coronavir 229E PCR NOT DETECTED 07/08/23 11:55 Nasal Coronavir HKU1 PCR NOT DETECTED 07/08/23 11:55 Nasal Coronavir NL63 PCR NOT DETECTED 07/08/23 11:55 Nasal Coronavir OC43 PCR NOT DETECTED 07/08/23 11:55 Nasal Enterovir/Rhinovir PCR NOT DETECTED 07/08/23 11:55 Nasal Influenza B PCR NOT DETECTED 07/08/23 11:55 Nasal Influenza A PCR NOT DETECTED 07/08/23 11:55 Nasal Parainfluen 1 PCR NOT DETECTED 07/08/23 11:55 Nasal Parainfluen 2 PCR NOT DETECTED 07/08/23 11:55 Nasal Parainfluen 3 PCR NOT DETECTED 07/08/23 11:55 Nasal Parainfluen 4 PCR NOT DETECTED 07/08/23 11:55 Nasal RSV (PCR) NOT DETECTED 07/08/23 11:55 Nasal B.pertussis DNA PCR NOT DETECTED 07/08/23 11:55 Nasal C.pneumoniae (PCR) NOT DETECTED 07/08/23 11:55 Dru Human Metapneumo PCR NOT DETECTED 07/08/23 11:55 Nasal M.pneumoniae (PCR) NOT DETECTED 07/08/23 11:55 Nasal SARS-CoV-2 (PCR) NOT DETECTED 07/08/23 11:55
[2023-07-10] MEDS: OMEGA-3 ACID ETHYL ESTERS 1 GM CAPSULE PO SCH (13:21)
[2023-07-11 05:32] LABS: BASOPHILS % (AUTO) 0.2 %; EOSINOPHILS % (AUTO) 0.8 %; HCT - HEMATOCRIT 32.5 % (42.0-52.0); HGB - HEMOGLOBIN 10.5 g/dL (14.0-18.0); LYMPHOCYTES % (AUTO) 48.5 %; MEAN CORPUSCULAR HEMOGLOBIN 30.8 pg (27.0-31.0); MEAN CORPUSCULAR HGB CONC 32.3 g/dL (32.0-36.0); MEAN CORPUSCULAR VOLUME 95.3 fL (80.0-94.0); MEAN PLATELET VOLUME 10.6 fL (7.4-11.4); MONOCYTES % (AUTO) 16.3 %; NEUTROPHILS % (AUTO) 33.9 %; PLT - PLATELET COUNT 137 10^3/uL (130-450); RED BLOOD COUNT 3.41 10^6/uL (4.70-6.10); RED CELL DISTRIBUTION WIDTH 14.7 % (12.0-15.0); WHITE BLOOD COUNT 15.8 x10^3/uL (4.8-10.8)
[2023-07-11 05:45] LABS: ABNORMAL LYMPHS % (MANUAL) 0 %
[2023-07-11 05:47] LABS: CALCIUM 8.3 mg/dL (8.5-10.3); CREATININE 0.9 mg/dL (0.6-1.3); POTASSIUM 3.5 mmol/L (3.5-4.5)
[2023-07-11 07:12] LABS: BAND NEUTROPHILS % (MANUAL) 1 %; BASOPHILS # (MANUAL) 0.2 10^3/uL (0-0.1); BASOPHILS % (MANUAL) 1 %; LYMPHOCYTES % (MANUAL) 63 %; MONOCYTES # (MANUAL) 1.1 10^3/uL (0.0-1.0); NEUTROPHILS # (MANUAL) 4.6 10^3/uL (1.5-6.6); PLATELET MORPHOLOGY NORMAL APPEARANCE (NORMAL); RBC MORPHOLOGY (MULTIPLE) NORMAL APPEARANCE (NORMAL)
[2023-07-11 07:13] LABS: DIFFERENTIAL COMMENT MANUAL DIFFERENTIAL; PLATELET ESTIMATE, MANUAL DECREASED (<130,000) (NORMAL)
--- NOTE | 2023-07-11 14:06 | PROVIDER PROGRESS NOTE ---
Subjective - General Admit Date: 07/09/23 - Review of Systems General: positive: No symptoms All Other Systems: positive: Reviewed and negative Objective - Patient Data Reviewed Vital Signs: Yes Intake & Output: Intake and Output Totals x24h 07/09/23 07/10/23 07/11/23 23:59 23:59 23:59 Intake Total 3090.000 3433.333 726.667 Output Total 675 795 475 Balance 2415.000 2638.333 251.667 - Lab Results Lab Results: 07/11/23 04:54 07/11/23 04:54 Other Lab Results: Lab Results x24hrs 07/11/23 07/11/23 Range/Units 04:54 04:54 WBC 15.8 H (4.8-10.8) x10^3/uL RBC 3.41 L (4.70-6.10) 10^6/uL Hgb 10.5 L (14.0-18.0) g/dL Hct 32.5 L (42.0-52.0) % MCV 95.3 H (80.0-94.0) fL MCH 30.8 (27.0-31.0) pg MCHC 32.3 (32.0-36.0) g/dL RDW 14.7 (12.0-15.0) % Plt Count 137 (130-450) 10^3/uL MPV 10.6 (7.4-11.4) fL Neut # (Auto) Not Reportable Lymph # (Auto) Not Reportable [place] # (Auto) Not Reportable Eos # (Auto) Not Reportable Baso # (Auto) Not Reportable Absolute Nucleated RBC Not Reportable Total Counted 100 Band Neuts % (Manual) 1 (0 - 10) % Abnorm Lymph % (Manual) 0 % Nucleated RBC % Not Reportable Neutrophils # (Manual) 4.6 (1.5-6.6) 10^3/uL Lymphocytes # (Manual) 10.0 H (1.5-3.5) 10^3/uL Monocytes # (Manual) 1.1 H (0.0-1.0) 10^3/uL Eosinophils # (Manual) 0.0 (0-0.7) 10^3/uL Basophils # (Manual) 0.2 H (0-0.1) 10^3/uL Differential Comment MANUAL DIFFERENTIAL Platelet Estimate DECREASED (<130,000) (NORMAL) Platelet Morphology NORMAL APPEARANCE (NORMAL) RBC Morph Micro Appear NORMAL APPEARANCE (NORMAL) Sodium 135 (135-145) mmol/L Potassium 3.5 (3.5-4.5) mmol/L Chloride 105 (101-111) mmol/L Carbon Dioxide 23 (21-32) mmol/L Anion Gap 7.0 (6-13) BUN 15 (6-20) mg/dL Creatinine 0.9 (0.6-1.3) mg/dL Estimated GFR (MDRD) 82 L (>89) Glucose 99 (74-104) mg/dL Calcium 8.3 L (8.5-10.3) mg/dL - Current Medications Current Medications: Current Medications Generic Name Dose Route Start Last Admin Trade Name Freq PRN Reason Stop Dose Admin Ascorbic Acid 1,000 mg 07/09/23 21:00 07/11/23 08:20 Ascorbic Acid 500 Mg Tablet PO 1,000 mg BID THOMAS Administration Enoxaparin Sodium 40 mg 07/09/23 09:00 07/11/23 08:20 Enoxaparin 40 Mg/0.4 Ml Syringe SUBQ 40 mg DAILY THOMAS Administration Gabapentin 300 mg 07/08/23 21:00 07/10/23 21:10 Gabapentin 300 Mg Capsule PO Not Given HS THOMAS Sodium Chloride 1,000 mls @ 100 mls/hr 07/08/23 12:00 07/11/23 01:48 Normal Saline 0.9% IV 100 mls/hr .Q10H THOMAS Administration Losartan Potassium 50 mg 07/09/23 13:00 07/11/23 08:21 Losartan 50 Mg Tablet PO 50 mg DAILY THOMAS Administration [id number] Ethyl Esters 1 gm 07/10/23 13:00 07/11/23 08:21 [place]-3 Acid Ethyl Esters 1 Gm Capsule PO 1 gm DAILY THMOAS Administration Multivit/Folic Acid/Iron 1 tab 07/09/23 08:00 07/11/23 08:21 Vitamin Tablet PO 1 tab DAILYWM THOMAS Administration Saccharomyces Boulardii 250 mg 07/08/23 17:00 07/11/23 08:21 Saccharomyces Boulardii 250 Mg Capsule PO 250 mg BIDWM THOMAS Administration Sodium Chloride 10 ml 07/08/23 17:00 07/11/23 08:21 Sodium Chloride Flush 0.9% 10 Ml Syringe IVP 10 ml 0100,0900,1700 THOMAS Administration Thiamine HCl 100 mg 07/09/23 09:00 07/11/23 08:21 Thiamine 100 Mg Tablet PO 100 mg DAILY THOMAS Administration Impression/Plan - Problem List Problem List: 77-year-old male with Pseudomonas UTI. Improving on empiric antibiotics. He needs to be switched on to appropriate culture documented antibiotics such as oral levofloxacin 750 mg daily or ciprofloxacin 500 mg twice daily. He should complete 2 weeks of antibiotics. My office will arrange follow-up with him
[2023-07-11 16:16] VITALS: BP 161/80; O2SAT 94
[2023-07-11] MEDS: levoFLOXacin 750 MG TABLET PO ONE (17:02)
--- NOTE | 2023-07-11 17:05 | Discharge Plan ---
Discharge Plan Condition: Stable No Smoking: If you smoke, Please STOP! Call for help.
--- NOTE | 2023-07-11 17:05 | Discharge Plan ---
Discharge Plan Problem Reviewed?: Yes Disposition: Home, Self Care Condition: Good Prescriptions: levoFLOXacin [Levofloxacin] 750 mg PO DAILY 13 Days #13 tab Diet: Diabetic Activity Restrictions: Activity as Tolerated Shower Restrictions: No Driving Restrictions: No Assistance Devices: Walker Weight Bearing: Full Weight Instruction Topics: UTI Health Concerns: History of Present Illness: This is a 77-year-old male with a history of CLL that is not on any chemot herapy, has a history of HTN, and lives with his . The patient developed a fever yesterday and the noticed urinary urgency and frequency and he came to the ER. He was found to be tachycardic at 120, febrile at 38.8 and had a very abnormal urinalysis showing many WBCs and some bacteria. Blood cultures were drawn and he was given IV Rocephin x1. His WBC normally runs 20-23 due to CLL, and yesterday his WBC was 29 and lactic acid level was normal. Chest x-ray showed a questionable left lower lobe infiltrate versus atelectasis. He underwent abdomen CT which showed diverticulosis but no diverticulitis but had abnormal findings with air in the bladder consistent with an infection and stranding of the prostate consistent with inflammation or malignancy. He was advised admission but he repeatedly refused to be admitted. The patient was therefore prescribed po Vantin and was discharged from the ER. He did not yet last picker the Vantin prescription. This morning his noticed that he was very confused and had another fever spike and brought him back to the ER. Today his WBC is 25, Lactic Acid is normal, he is not tachycardic, but he has a soft blood pressure of 114 systolic, and he has a fever again of 38.9. Blood cultures were sent off again. He received IV ceftriaxone and IV Zithromax empirically for the possible pneumonia, but today's CXR was read as having no infiltrate. The ED provider spoke to me about this patient. He will be placed in Observation to manage the UTI with new confusion. Hospital course: Mr. Hein was transitioned to inpatient care. His confusion improved over the next several days and he is currently at his baseline. During his hospitalization, urology was consulted and he was Dr. Mena's recommendation to initiate treatment with levofloxacin 750 mg daily for 14 days for a culture positive pseudomonal infection that is sensitive to levofloxacin. Patient was counseled to avoid strenuous exercise or straining while he is taking levofloxacin. Mr. Marina will follow-up with Dr. Mena in his clinic. Plan of Treatment: 1. Complete course of antibiotics with levofloxacin 750 mg tablet 1 tablet each evening until gone. 2. Please follow-up with Dr. Kiran Mena in 2 to 6 weeks. 3. Please follow-up with Dr. Marce Toledo. Care Goals: Goals of care is to take antibiotics to eradicate urinary tract infection. Assessment: Mr Hein is a 77-year-old man admitted with confusion and a urinary tract infection. Culture is positive for Pseudomonas that is sensitive to Levaquin. Patient is currently at his baseline and he is ambulating with a walker without difficulty. He is stable for discharge to home. Follow-Up Care: Home Health - PT, Home Health - OT No Smoking: If you smoke, Please STOP! Call for help. Follow-up with: Marce Toledo MD [Provider Admit Priv/Credential] -
--- NOTE | 2023-07-11 18:26 | DISCHARGE SUMMARY ---
"Discharge Summary Admit Date: 07/08/23 Discharge Date: 07/11/23 Discharging Provider: Emmett Hsu MD Primary Care Provider: Marce Toledo MD Condition at Discharge: Good Discharge Disposition: 01 Home, Self Care Discharge Facility [facility]: [facility] - DIAGNOSES Admission Diagnoses: (1) Confusion (2) UTI (urinary tract infection) (3) CLL (chronic lymphocytic leukemia) (4) Alcohol use (5) Hx of essential hypertension Discharge Diagnoses with Status of Each Condition: (1) Pseudomonas urinary tract infection (2) Confusion (3) Fall at home (4) Enlarged prostate with lower urinary tract symptoms (LUTS) (5) ANDERSON on CPAP (6) CLL (chronic lymphocytic leukemia) (7) Alcohol use (8) Hypertension (9) Pre-diabetes - HPI History of Present Illness: This is a 77-year-old male with a history of CLL that is not on any chemotherapy, has a history of HTN, and lives with his . The patient developed a fever yesterday and the noticed urinary urgency and frequency and he came to the ER. He was found to be tachycardic at 120, febrile at 38.8 and had a very abnormal urinalysis showing many WBCs and some bacteria. Blood cultures were drawn and he was given IV Rocephin x1. His WBC normally runs 20-23 due to CLL, and yesterday his WBC was 29 and lactic acid level was normal. Chest x-ray showed a questionable left lower lobe infiltrate versus atelectasis. He underwent abdomen CT which showed diverticulosis but no diverticulitis but had abnormal findings with air in the bladder consistent with an infection and stranding of the prostate consistent with inflammation or malignancy. He was advised admission but he repeatedly refused to be admitted. The patient was therefore prescribed po Vantin and was discharged from the ER. He did not yet pick up operator the Vantin prescription. This morning his noticed that he was very confused and had another fever spike and brought him back to the ER. Today his WBC is 25, Lactic Acid is normal, he is not tachycardic, but he has a soft blood pressure of 114 systolic, and he has a fever again of 38.9. Blood cultures were sent off again. He received IV ceftriaxone and IV Zithromax empirically for the possible pneumonia, but today's CXR was read as having no infiltrate. The ED provider spoke to me about this patient. He will be placed in Observation to manage the UTI with new confusion. - CONSULTS | PROCEDURES Consultations: 07/10/2023 Urology (Kiran Mena MD) - HOSPITAL COURSE Hospital Course: Mr. Hein was transitioned to inpatient care. His confusion improved over the next several days and he is currently at his baseline. During his hospitalization, urology was consulted and he was Dr. Addis chang's recommendation to initiate treatment with levofloxacin 750 mg daily for 14 days for a culture positive pseudomonal infection that is sensitive to levofloxacin. Patient was counseled to avoid strenuous exercise or straining while he is taking levofloxacin. Mr. Marina will follow-up with Dr. Mena in his clinic. - ALLERGIES Allergies/Adverse Reactions: Allergies Allergy/AdvReac Type Severity Reaction Status Date / Time No Known Drug Allergies Allergy Verified 07/07/23 15:29 - MEDICATIONS Home Medications: Ambulatory Orders Medication Instructions Recorded Confirmed Losartan [Cozaar] 50 mg PO DAILY 05/06/19 07/08/23 Ascorbic Acid [Vitamin C] 1,000 mg PO BID 07/08/23 07/08/23 Ashwagandha Root Extract 500 mg PO DAILY 07/08/23 07/08/23 [Ashwagandha] Melatonin 20 mg PO HS 07/08/23 07/08/23 Naltrexone HCl [Lotrexone] 4.5 mg PO DAILY 07/08/23 07/08/23 [place]-3S/Dha/Epa/Fish Oil/D3 1 cap PO DAILY 07/08/23 07/08/23 [Ujmbw-1-Hubn Oil-Vit D3 Sftgl] Ubidecarenone [Co Q-10] 200 mg PO DAILY 07/08/23 07/08/23 Gabapentin [Neurontin] 300 mg PO HS cap 07/11/23 levoFLOXacin [Levofloxacin] 750 mg PO DAILY 13 Days #13 tab 07/11/23 - PHYSICAL EXAM AT DISCHARGE General Appearance: positive: No acute distress, Alert Eyes Bilateral: positive: PERRL, EOMI Neck: positive: No JVD, Trachea midline Respiratory: positive: Other (Good air exchange in all lung mccann no wheezing no crackles.) Cardiovascular: positive: Regular rate & rhythm, No murmur, No gallop Abdomen: positive: Non-tender, No organomegaly, No distention Skin: positive: No rash Extremities: positive: Nml appearance, No pedal edema Neurologic/Psychiatric: positive: Oriented x3 - LABS Result Diagrams: 07/11/23 04:54 07/11/23 04:54 - FOLLOW UP Follow Up: Follow-up with Dr. Kiran Mena in 2-6 weeks. Follow-up with Dr. Marce Toledo. - TIME SPENT Time Spent in Discharge (Minutes): 28"
[2023-07-12] MEDS ORDERED: levoFLOXacin 750 MG TABLET PO SCH (16:06)
== END 2023-07-11 18:36 | disposition home or self-care (01) | DRG 690 ==
LOC: ED 09:22 → MS3 11:30 → MS2 18:07 → OBSVTOIN 07-09 09:27
PROVIDERS: ADMIT Internal Medicine; ATTEND Internal Medicine
DX: A41.9 Sepsis, unspecified organism (principal); N39.0 Urinary tract infection, site not specified; N30.90 Cystitis, unspecified without hematuria; C91.10 Chronic lymphocytic leukemia of B-cell type not having achieved remission; Z11.52 Encounter for screening for COVID-19; I10 Essential (primary) hypertension; B96.5 Pseudomonas (aeruginosa) (mallei) (pseudomallei) as the cause of diseases classified elsewhere; M19.90 Unspecified osteoarthritis, unspecified site; R97.20 Elevated prostate specific antigen [PSA]; N40.1 Benign prostatic hyperplasia with lower urinary tract symptoms; R39.15 Urgency of urination; R35.0 Frequency of micturition; G47.33 Obstructive sleep apnea (adult) (pediatric); R73.03 Prediabetes; Z79.899 Other long term (current) drug therapy; Z80.8 Family history of malignant neoplasm of other organs or systems; Z91.81 History of falling; Z96.659 Presence of unspecified artificial knee joint
CPT/HCPCS: 36415; 70450; 71045; 80048; 80053; 81001; 82040; 83605; 83880; 84153; 84154; 85025; 87040; 87086; 87633; 96365; 96366; 96368; 96372; 96375; 96376; 97116; 97161; 97166; 97530; 99284; 99285; A9270; J1650

== ENCOUNTER 2023-07-13 14:34 | Emergency (ER) | payer MEDICARE, OTHER ==
--- NOTE | 2023-07-13 16:32 | ED Physician Documentation ---
History of Present Illness - Stated complaint Stated Complaint: L CALF PX - Chief complaint Chief Complaint: Ext Problem - Additonal information Additional information: 77-year-old male presents emergency department for left calf pain. Patient was sent here by his physical therapist for concerns of DVT. Patient was recently hospitalized here for urinary tract infection causing what sounds to be like sepsis. He was started levofloxacin. He denies any Achilles pain he is able to ambulate there is no unilateral leg swelling. He came in using a cane but he says that he is very deconditioned after his hospitalization. No fevers or ch ills no redness to the calf PD PAST MEDICAL HISTORY - Past Medical History Past Medical History: Yes Cardiovascular: Hypertension Respiratory: None Neuro: None Endocrine/Autoimmune: None GI: None : None Psych: None Musculoskeletal: Osteoarthritis - Past Surgical History Past Surgical History: Yes Ortho: Knee replacement - Present Medications Home Medications: Ambulatory Orders Medication Instructions Recorded Confirmed Losartan [Cozaar] 50 mg PO DAILY 05/06/19 07/13/23 Ascorbic Acid [Vitamin C] 1,000 mg PO BID 07/08/23 07/13/23 Ashwagandha Root Extract 500 mg PO DAILY 07/08/23 07/13/23 [Ashwagandha] Melatonin 20 mg PO HS 07/08/23 07/13/23 Naltrexone HCl [Lotrexone] 4.5 mg PO DAILY 07/08/23 07/13/23 [place]-3S/Dha/Epa/Fish Oil/D3 1 cap PO DAILY 07/08/23 07/13/23 [Gwxce-6-Xirp Oil-Vit D3 Sftgl] Ubidecarenone [Co Q-10] 200 mg PO DAILY 07/08/23 07/13/23 Gabapentin [Neurontin] 300 mg PO HS cap 07/11/23 07/13/23 levoFLOXacin [Levofloxacin] 750 mg PO DAILY 13 Days #13 tab 07/11/23 07/13/23 - Allergies Allergies/Adverse Reactions: Allergies Allergy/AdvReac Type Severity Reaction Status Date / Time No Known Drug Allergies Allergy Verified 07/13/23 14:46 - Social History Does the pt smoke?: No Smoking Status: Never smoker Does the pt drink ETOH?: Yes Does the pt have substance abuse?: No - Immunizations Immunizations are current?: Yes - POLST Patient has POLST: No PD ED PE NORMAL - Vitals Vital signs reviewed: Yes - General General: Alert and oriented X 3 - Derm Derm: Normal color, Warm and dry, No rash - Extremities Extremities: No deformity, No edema (Left posterior calf tenderness) - Psych Psych: Normal mood Results - Vitals Vitals: Vital Signs - 24 hr 07/13/23 07/13/23 14:36 16:41 Temperature 36.8 C Heart Rate 87 85 Respiratory 17 15 Rate Blood Pressure 191/86 H 178/92 H O2 Saturation 98 Oxygen O2 Source Room air - Rads (name of study) Venous duplex ultrasound of the left lower extremity Relevant Findings:: Final report received, EMP independent interpretation of test, Other (No DVT) PD Medical Decision Making - ED course ED course: 77-year-old male presents emergency department for left calf pain. Venous duplex is complete which does not reveal any DVT. There was concern of t endinitis but given that patient is able to ambulate and I was pretty firmly palpating his left calf and he is able to tolerate it without significant discomfort I would hold off on telling him to discontinue his levofloxacin for now as it does not sound like true tendinitis at this point. He has no Achilles tenderness or pain. Patient says that he was quite deconditioned after his recent hospitalization which is why he is working with physical therapy which could be the cause of his left calf pain. Patient told to follow-up with his primary care provider early next week for reevaluation if it gets any worse he is informed that he may have to discontinue levofloxacin and make a new antibiotic choice with his PCP. No erythema to the left lower extremity concerning for cellulitis. Patient is safe for discharge at this time all questions answered. Departure - Departure Disposition: 01 Home, Self Care Clinical Impression: Pain of left calf Instructions: Levofloxacin tablets Comments: Thank you for trusting us with your care. We have completed venous duplex of your left lower extremity we do not see a DVT. As we discussed in rare cases there are times where you will need to discontinue the levofloxacin because something called tendinitis. If your Pain gets significantly worse over the next couple days there is a possibility that you may have to discontinue her levofloxacin. Please follow-up with your primary care provider to discuss today's findings as well as your left calf pain. Please come back to the emergency department if your pain gets significantly worse over the next couple days. Forms: PCP List Discharge Date/Time: 07/13/23 16:42
--- NOTE | 2023-07-13 16:33 | Ultrasound Report ---
PROCEDURE: Duplex Ext Veins Left INDICATIONS: L. calf pain and swelling TECHNIQUE: Real-time imaging, as well as color and pulse Doppler interrogation, were performed of the lower extr emity deep veins from the inguinal ligament to the popliteal fossa. Attempted visualization of the ca lf veins was performed. COMPARISON: None. FINDINGS: The deep veins are normally compressible, and free of intraluminal thrombus. Color and pu lse Doppler demonstrate normal phasic intraluminal flow. There is normal augmentation response to di stal compression maneuver. IMPRESSION: No deep venous thrombosis of the visualized left lower extremity. Reviewed by: Serena Kuhn MD on 07/13/2023 4:32 PM PST Approved by: Serean Kuhn MD on 07/13/2023 4:32 PM PST Station ID: [id number]
[2023-07-13 16:49] VITALS: BP 178/92; O2SAT 98
== END 2023-07-13 16:42 | disposition home or self-care (01) ==
LOC: ED 14:34
DX: M79.662 Pain in left lower leg (principal); I10 Essential (primary) hypertension; Z79.899 Other long term (current) drug therapy
CPT/HCPCS: 99283; 99284

== ENCOUNTER 2023-07-26 08:00 | Outpatient (CLI) | payer MEDICARE, OTHER | END 2023-07-26 23:59 | disposition home or self-care (01) | LOC: LAB.F 08:00 | PROVIDERS: ATTEND Internal Medicine | DX: N39.0 Urinary tract infection, site not specified (principal) | CPT/HCPCS: 87086 ==

== ENCOUNTER 2023-07-27 13:48 | Outpatient (CLI) | payer MEDICARE, OTHER ==
--- NOTE | 2023-07-27 13:45 | SLEEP CARE CONSULTATION ---
Information from patient questionnaire entered by Jeannine Myers. I have reviewed and concur with the information entered by Jeannine Myers. This document represents the service I personally performed and the decisions made by , Peggy Kelly ARNP. History of Present Illness Service Date and Time: 07/27/2023 1320 Previous diagnosis: Moderate, Obstructive Sleep Apnea-Hypopnea Syndrome AHI: 25.7 Reason for follow up: three month (F/U) Equipment type: CPAP (RESMED AIRSENSE 11 AUTOSET SET UP 01/03/23) Equipment obtained from: [employer] ([employer]) Mask style: Nasal (over the nose) Backup mask available: Yes Last cushion change: less than a month Prior sleep studies: No Type of Sleep Study: Polysomnography (COMPLETED 11/16/22) HPI additional information: BRITTANIE ALVARADO was diagnosed to have moderate, AHI 25.7, obstructive sleep apnea- hypopnea syndrome and returns via video appointment today for CPAP therapy three month follow-up. Sleep Study - Results Type of Sleep Study: Polysomnography (COMPLETED 11/16/22) Prior sleep studies: No CPAP Compliance Data - Data Reviewed with Patient Average duration of nightly device use: 9 HRS 32 MINS Compliance rate %: 96 (04/26/23-07/24/23) Current pressure setting (cmH2O): 10-14 Average residual AHI: 1.2 Central apnea: 0.5 Obstructive apnea: 0.4 Average large leak: 0 L/min Subjective Patient concerns: reports: condensation in mask/hose (hose). denies: aerophagia, mask discomfort, air blowing in eyes, mask leak noise, nasal congest ion, dry mouth, nose, throat, epistaxis Observed to snore while using device: No Current pressure setting perceived as: comfortable On therapy, patient: reports: sleeping better, awakening more refreshed, being more awake and alert during the day, more rested overall. denies: drowsiness while driving Initial [place] Sleepiness Scale score: 8 (09/2021) Current [place] Sleepiness Scale score: 6 (07/27/23) Allergies and Home Medications Known drug allergies: No Drug allergies reviewed: Yes Home medication list reviewed: Yes (no changes) Allergy and home medication list: Allergies No Known Drug Allergies Allergy (Verified 07/25/23 14:16) Review of Systems Review of systems same as previous: No (UTI, was hospitalized) Physical Exam Vital signs obtained and entered by: JEANNINE Ho MA Height: 6 ft (PER PT) Weight: 200 lb (PER PT) Body Mass Index: 27.1 BMI Classification: Overweight Impression and Plan 1. Obstructive Sleep Apnea-Hypopnea Syndrome, moderate, with good treatment compliance and good apnea control. On CPAP therapy, the patient has better sleep quality and is more rested overall. Patient has significant improvement of their sleep apnea and is satisfied with current CPAP therapy. Patient has been getting some condensation in tubing. I went on to the website and adjusted it by increasing the heated hose to 82 degrees and his humidity is set up 4, to see if this will reduce condensation. We also discussed moving the CPAP lower than his head as this may also reduce condensation. Patient is very comfortable with using the CPAP and we will follow-up with him in about 6 months. Patient's apnea severity and rationale for treatment to reduce apnea, improve sleep quality and reduce cardiovascular and cerebrovascular events was reviewed. I also reviewed the benefit of consistent device use of CPAP for hypertension, depression. 2. Overweight, unspecified. Currently patients BMI is 27.1. Obesity increases the risk of apnea, CPAP pressure requirements and overall health risks especially cardiovascular and diabetes. Thus patient is advised to lose weight. * Continue auto CPAP pressure at 10-14 cmH2O * Notify me if snoring with mask or feeling that the pressure is too much or too little * Attempt to lose weight * Call this office if any problems using CPAP * Return for follow up in 6 months, or sooner if concerns arise Counseling Topics: Spare mask, Weight loss health impact Follow up with Sleep Care in: 6 months Visit Type: Telehealth Video Video Type: Nahid Patient Location: Home Location of Provider: Office Patient agrees and consents to this telehealth visit type: Yes Time Spent with Patient (minutes): 22 Provider Statement: I spent 100% of the Telehealth Video Call with the patient with greater than 50% spent counseling the patient and coordination of care.
== END 2023-07-27 13:49 | disposition home or self-care (01) ==
LOC: SC 13:48
PROVIDERS: ATTEND Nurse Practitioner Family
DX: G47.33 Obstructive sleep apnea (adult) (pediatric) (principal)

== ENCOUNTER 2023-08-11 08:00 | Outpatient (CLI) | payer MEDICARE, OTHER ==
[2023-08-11 16:19] LABS: BILIRUBIN,URINE NEGATIVE (NEGATIVE); GLUCOSE, URINE (UA) NEGATIVE (NEGATIVE); KETONES,URINE (UA) NEGATIVE (NEGATIVE); LEUKOCYTE ESTERASE, URINE TRACE (NEGATIVE); NITRITE,URINE NEGATIVE (NEGATIVE); OCCULT BLOOD,URINE NEGATIVE (NEGATIVE); PROTEIN,URINE TRACE mg/dL (NEGATIVE); UROBILINOGEN,URINE 0.2 (NORMAL) E.U./dL (NORMAL)
[2023-08-11 16:38] LABS: CLARITY,URINE HAZY (CLEAR)
[2023-08-11 17:11] LABS: BACTERIA,URINE Rare /HPF (None Seen); RBC,URINE 0-5 /HPF (0-5); SQUAMOUS EPITHELIAL CELL,UR NONE SEEN (<= Few); WBC,URINE >25 /HPF (0-3)
== END 2023-08-11 23:59 | disposition home or self-care (01) ==
LOC: LAB.R 08:00
PROVIDERS: ATTEND Urology
DX: N39.0 Urinary tract infection, site not specified (principal)
CPT/HCPCS: 81001; 87086

== ENCOUNTER 2023-08-14 11:12 | Outpatient (CLI) | payer MEDICARE, OTHER | END 2023-08-14 11:13 | disposition home or self-care (01) | LOC: LAB.S 11:12 | PROVIDERS: ATTEND Urology | DX: R97.20 Elevated prostate specific antigen [PSA] (principal) | CPT/HCPCS: 36415; 84153 ==

== ENCOUNTER 2023-08-29 09:33 | Outpatient (CLI) | payer MEDICARE, OTHER ==
[2023-08-29 09:57] LABS: BASOPHILS % (AUTO) 0.2 %; EOSINOPHILS % (AUTO) 0.2 %; HCT - HEMATOCRIT 38.5 % (42.0-52.0); HGB - HEMOGLOBIN 12.3 g/dL (14.0-18.0); MEAN CORPUSCULAR HGB CONC 31.9 g/dL (32.0-36.0); MEAN CORPUSCULAR VOLUME 93.9 fL (80.0-94.0); MEAN PLATELET VOLUME 10.9 fL (7.4-11.4); NEUTROPHILS % (AUTO) 17.5 %; PLT - PLATELET COUNT 150 10^3/uL (130-450); RED CELL DISTRIBUTION WIDTH 13.8 % (12.0-15.0); WHITE BLOOD COUNT 19.9 x10^3/uL (4.8-10.8)
[2023-08-29 10:10] LABS: ALBUMIN 4.3 g/dL (3.2-5.5); ALBUMIN/GLOBULIN RATIO 1.8 (1.0-2.2); BILIRUBIN,TOTAL 1.1 mg/dL (0.2-1.0); CALCIUM 9.9 mg/dL (8.5-10.3); CRP HIGH SENSITIVITY 1.04 mg/L; POTASSIUM 4.4 mmol/L (3.5-4.5); TOTAL PROTEIN 6.7 g/dL (6.4-8.9)
[2023-08-29 10:19] LABS: ESTIMATED AVERAGE GLUCOSE 105 mg/dL (70-100); HEMOGLOBIN A1c% 5.3 % (4.27-6.07)
[2023-08-29 10:35] LABS: ABNORMAL LYMPHS % (MANUAL) 0 %; BAND NEUTROPHILS % (MANUAL) 0 %
[2023-08-29 10:37] LABS: LYMPHOCYTES # (MANUAL) 16.5 10^3/uL (1.5-3.5); LYMPHOCYTES % (MANUAL) 64 %; MONOCYTES # (MANUAL) 1.6 10^3/uL (0.0-1.0); NEUTROPHILS # (MANUAL) 1.8 10^3/uL (1.5-6.6); REACTIVE LYMPHS % (MANUAL) 19 %
[2023-08-29 10:38] LABS: DIFFERENTIAL COMMENT MANUAL DIFFERENTIAL; RBC MORPHOLOGY (MULTIPLE) 1+ ANISOCYTOSIS (NORMAL)
[2023-08-30 03:09] LABS: VITAMIN D 25-HYDROXY 84.5 ng/mL (30.0-100.0)
[2023-08-30 07:10] LABS: CERULOPLASMIN 25.4 mg/dL (16.0-31.0)
[2023-08-30 08:11] LABS: INSULIN 17.6 uIU/mL (2.6-24.9)
== END 2023-08-29 09:34 | disposition home or self-care (01) ==
LOC: LAB 09:33
PROVIDERS: ATTEND General Practice
DX: R53.83 Other fatigue (principal); E55.9 Vitamin D deficiency, unspecified; E11.9 Type 2 diabetes mellitus without complications; D68.9 Coagulation defect, unspecified; M35.9 Systemic involvement of connective tissue, unspecified; C91.10 Chronic lymphocytic leukemia of B-cell type not having achieved remission; I10 Essential (primary) hypertension; C43.9 Malignant melanoma of skin, unspecified; R41.89 Other symptoms and signs involving cognitive functions and awareness; K58.9 Irritable bowel syndrome, unspecified
CPT/HCPCS: 36415; 80053; 81599; 82306; 82390; 82525; 82977; 83036; 83090; 83525; 83615; 84305; 85025; 85379; 85384; 85651; 86141

== ENCOUNTER 2023-10-20 14:44 | Outpatient (CLI) | payer MEDICARE, OTHER ==
[2023-10-20 20:04] LABS: BASOPHILS % (AUTO) 0.2 %; EOSINOPHILS % (AUTO) 0.2 %; HCT - HEMATOCRIT 38.5 % (42.0-52.0); HGB - HEMOGLOBIN 12.6 g/dL (14.0-18.0); LYMPHOCYTES % (AUTO) 61.9 %; MEAN CORPUSCULAR HEMOGLOBIN 30.4 pg (27.0-31.0); MEAN CORPUSCULAR HGB CONC 32.7 g/dL (32.0-36.0); MEAN CORPUSCULAR VOLUME 92.8 fL (80.0-94.0); MONOCYTES % (AUTO) 10.7 %; NEUTROPHILS % (AUTO) 26.8 %; PLT - PLATELET COUNT 150 10^3/uL (130-450); RED BLOOD COUNT 4.15 10^6/uL (4.70-6.10); RED CELL DISTRIBUTION WIDTH 14.5 % (12.0-15.0); WHITE BLOOD COUNT 21.9 x10^3/uL (4.8-10.8)
[2023-10-20 20:09] LABS: ABNORMAL LYMPHS % (MANUAL) 0 %; BAND NEUTROPHILS % (MANUAL) 0 %
[2023-10-20 20:13] LABS: BILIRUBIN,URINE NEGATIVE (NEGATIVE); GLUCOSE, URINE (UA) NEGATIVE (NEGATIVE); KETONES,URINE (UA) NEGATIVE (NEGATIVE); LEUKOCYTE ESTERASE, URINE NEGATIVE (NEGATIVE); NITRITE,URINE NEGATIVE (NEGATIVE); OCCULT BLOOD,URINE NEGATIVE (NEGATIVE); PROTEIN,URINE TRACE mg/dL (NEGATIVE); UROBILINOGEN,URINE 0.2 (NORMAL) E.U./dL (NORMAL)
[2023-10-20 20:15] LABS: CLARITY,URINE CLEAR (CLEAR)
[2023-10-20 20:23] LABS: BACTERIA,URINE None Seen /HPF (None Seen); RBC,URINE 0-5 /HPF (0-5); SQUAMOUS EPITHELIAL CELL,UR RARE Squamous (<= Few)
[2023-10-20 20:25] LABS: CALCIUM 9.5 mg/dL (8.5-10.3); CREATININE 1.3 mg/dL (0.6-1.3); POTASSIUM 4.1 mmol/L (3.5-4.5)
[2023-10-20 20:28] LABS: LYMPHOCYTES # (MANUAL) 13.4 10^3/uL (1.5-3.5); LYMPHOCYTES % (MANUAL) 61 %; MONOCYTES # (MANUAL) 1.5 10^3/uL (0.0-1.0)
[2023-10-20 20:29] LABS: DIFFERENTIAL COMMENT MANUAL DIFFERENTIAL; PLATELET ESTIMATE, MANUAL NORMAL (130-450,000) (NORMAL); PLATELET MORPHOLOGY NORMAL APPEARANCE (NORMAL); RBC MORPHOLOGY (MULTIPLE) NORMAL APPEARANCE (NORMAL)
[2023-10-20 20:39] LABS: THYROID STIMULATING HORMONE 1.68 uIU/mL (0.34-5.60)
== END 2023-10-20 14:45 | disposition home or self-care (01) ==
LOC: LAB.S 14:44
PROVIDERS: ATTEND Internal Medicine
DX: R41.3 Other amnesia (principal)
CPT/HCPCS: 36415; 80048; 81001; 82607; 84443; 85025; 86592; 87086

== ENCOUNTER 2023-11-23 11:20 | Outpatient (CLI) | payer MEDICARE, OTHER ==
--- NOTE | 2023-11-23 12:14 | CT Report ---
PROCEDURE: Head WO INDICATIONS: MEMORY LOSS TECHNIQUE: Noncontrast 4.5 mm thick angled axial sections acquired from the foramen magnum to the vertex. For r adiation dose reduction, the following was used: automated exposure control, adjustment of mA and/or kV according to patient size. COMPARISON: 07/09/2023 FINDINGS: Image quality: Excellent. CSF spaces: Basal cisterns are patent. No extra-axial fluid collections. Ventricles are normal in size and shape. Brain: No midline shift. No intracranial masses or hemorrhage. Aguilar-white matter interface is norm al. Skull and face: Calvarium and visualized facial bones are intact, without suspicious lesions. Sinuses: Visualized sinuses and mastoids are clear. IMPRESSION: Noncontrast head CT within normal limits for age, similar to prior. Reviewed by: Joe Hernández MD on 11/23/2023 11:13 AM GINA Approved by: oJe Hernández MD on 11/23/2023 11:13 AM GINA Station ID: [id number]
== END 2023-11-23 11:21 | disposition home or self-care (01) ==
LOC: DI 11:20
PROVIDERS: ATTEND Internal Medicine
DX: R41.3 Other amnesia (principal)

== ENCOUNTER 2024-01-12 15:58 | Outpatient (CLI) | payer MEDICARE, OTHER ==
--- NOTE | 2024-01-12 21:23 | Ultrasound Report ---
PROCEDURE: Arterial Duplex Lwr Ext BL INDICATIONS: PERIPHERAL NEUROPATHY, SHUFFLING GAIT TECHNIQUE: Color and pulse Doppler interrogation was performed of both lower extremity arterial systems, with im age documentation. COMPARISON: None FINDINGS: Right lower extremity: Common femoral artery: 158 cm/sec, with triphasic flow. Deep femoral artery: 125 cm/sec, with triphasic flow. Proximal superficial femoral artery: 106 cm/sec, with triphasic flow. Mid superficial femoral artery: 101 cm/sec, with triphasic flow. Distal superficial femoral artery: 90 cm/sec, with triphasic flow. Popliteal artery: 80 cm/sec, with triphasic flow. Posterior tibial artery: 65 cm/sec, with triphasic flow. Anterior tibial artery/dorsalis pedis: 117 cm/sec, with triphasic flow. Aguilar-scale imaging description: No significant atherosclerotic plaque. Left lower extremity: Common femoral artery: 153 cm/sec, with biphasic flow. Deep femoral artery: 89 cm/sec, with biphasic flow. Proximal superficial femoral artery: 118 cm/sec, with triphasic flow. Mid superficial femoral artery: 92 cm/sec, with triphasic flow. Distal superficial femoral artery: 83 cm/sec, with triphasic flow. Popliteal artery: 109 cm/sec, with triphasic flow. Posterior tibial artery: 113 cm/sec, with biphasic flow. Anterior tibial artery/dorsalis pedis: 113 cm/sec, with biphasic flow. Aguilar-scale imaging description: No significant atherosclerotic plaque. IMPRESSION: Patent lower extremity vasculature without hemodynamically significant stenosis. No significant atherosclerotic disease. Reviewed by: Anderson Horton MD on 01/12/2024 9:21 PM PDT Approved by: Anderson Horton MD on 01/12/2024 9:21 PM PDT Station ID: [id number]
== END 2024-01-12 15:59 | disposition home or self-care (01) ==
LOC: DI 15:58
PROVIDERS: ATTEND Internal Medicine
DX: G62.9 Polyneuropathy, unspecified (principal); R26.89 Other abnormalities of gait and mobility; C91.10 Chronic lymphocytic leukemia of B-cell type not having achieved remission
CPT/HCPCS: 93925

== ENCOUNTER 2024-01-31 10:46 | Outpatient (CLI) | payer MEDICARE, OTHER ==
[2024-01-31 10:58] LABS: BASOPHILS # (AUTO) 0.1 10^3/uL (0.0-0.1); BASOPHILS % (AUTO) 0.2 %; EOSINOPHILS # (AUTO) 0.1 10^3/uL (0.0-0.7); EOSINOPHILS % (AUTO) 0.3 %; HCT - HEMATOCRIT 41.1 % (42.0-52.0); HGB - HEMOGLOBIN 13.4 g/dL (14.0-18.0); LYMPHOCYTES # (AUTO) 17.9 10^3/uL (1.5-3.5); LYMPHOCYTES % (AUTO) 71.3 %; MEAN CORPUSCULAR HEMOGLOBIN 30.2 pg (27.0-31.0); MEAN CORPUSCULAR HGB CONC 32.6 g/dL (32.0-36.0); MEAN CORPUSCULAR VOLUME 92.6 fL (80.0-94.0); MEAN PLATELET VOLUME 10.3 fL (7.4-11.4); MONOCYTES # (AUTO) 2.7 10^3/uL (0.0-1.0); MONOCYTES % (AUTO) 10.8 %; NEUTROPHILS # (AUTO) 4.4 10^3/uL (1.5-6.6); NEUTROPHILS % (AUTO) 17.3 %; PLT - PLATELET COUNT 159 10^3/uL (130-450); RED BLOOD COUNT 4.44 10^6/uL (4.70-6.10); RED CELL DISTRIBUTION WIDTH 13.5 % (12.0-15.0); WHITE BLOOD COUNT 25.1 x10^3/uL (4.8-10.8)
[2024-01-31 11:23] LABS: DIFFERENTIAL COMMENT MANUAL=AUTO DIFF; PLATELET ESTIMATE, MANUAL NORMAL (130-450,000) (NORMAL); PLATELET MORPHOLOGY NORMAL APPEARANCE (NORMAL); RBC MORPHOLOGY (MULTIPLE) NORMAL APPEARANCE (NORMAL)
== END 2024-01-31 10:47 | disposition home or self-care (01) ==
LOC: LAB 10:46
PROVIDERS: ATTEND Internal Medicine
DX: C91.10 Chronic lymphocytic leukemia of B-cell type not having achieved remission (principal); D63.0 Anemia in neoplastic disease
CPT/HCPCS: 36415; 85025

== ENCOUNTER 2024-01-31 11:31 | Outpatient (CLI) | payer MEDICARE, OTHER ==
--- NOTE | 2024-01-31 12:03 | Sleep Patient Instructions ---
Sleep Center Visit Summary - Patient Visit Information Reason for Visit: 6-month follow-up for PAP therapy - Patient Instructions Additional Instructions: You were here for follow up of CPAP therapy. You will be continued on CPAP therapy with pressure at 10-14 cmH2O. I written an order for a mask refitting for a nasal cushion mask. You should follow up with sleep care in 12 months. You may contact us sooner for any questions or concerns. - Clinic Information Contact: [facility] [address] [place] [address] [email or web address] T: [phone]
--- NOTE | 2024-01-31 12:10 | SLEEP CARE CONSULTATION ---
Information from patient questionnaire entered by Mirella Myers. I have reviewed and concur with the information entered by Mirella Myers. This document represents the service I personally performed and the decisions made by , Peggy Kelly ARNP. History of Present Illness Service Date and Time: 01/31/2024 1131 Previous diagnosis: Moderate, Obstructive Sleep Apnea-Hypopnea Syndrome AHI: 25.7 Reason for follow up: six month Equipment type: CPAP (RESMED AIRSENSE 11 AUTOSET SET UP 01/03/23) Equipment obtained from: [employer] ([employer]) Mask style: Nasal (over the nose) Mask brand: Resmed (AirTouch N20, medium cushion) Backup mask available: Yes (old mask) Prior sleep studies: No Type of Sleep Study: Polysomnography (COMPLETED 11/16/22) HPI additional information: BRITTANIE ALVARADO was diagnosed to have moderate, AHI 25.7, obstructive sleep apnea- hypopnea syndrome and returned today for CPAP therapy six month follow-up. Sleep Study - Results Type of Sleep Study: Polysomnography (COMPLETED 11/16/22) Prior sleep studies: No CPAP Compliance Data - Data Reviewed with Patient Average duration of nightly device use: 8 HRS 22 MINS Compliance rate %: 78 (08/02/23-01/28/24; 144/180 days used) Current pressure setting (cmH2O): 10-14 Average residual AHI: 1.5 Central apnea: 0.6 Obstructive apnea: 0.6 Hypopnea: 0.3 Average large leak: 0.3 L/min Compliance data discussion: He has a travel CPAP when traveling. Subjective Missed days of use due to: reports: travel (using travel CPAP) Patient concerns: reports: mask discomfort. denies: aerophagia, air blowing in eyes, mask leak noise, condensation in mask/hose, nasal congestion, dry mouth, nose, throat, epistaxis Observed to snore while using device: No Current pressure setting perceived as: comfortable On therapy, patient: reports: sleeping better, awakening more refreshed, being more awake and alert during the day, more rested overall. denies: drowsiness while driving Initial [place] Sleepiness Scale score: 8 (09/2021) Current [place] Sleepiness Scale score: 9 (01/31/24) Allergies and Home Medications Known drug allergies: No Drug allergies reviewed: Yes Home medication list reviewed: Yes (no changes) Allergy and home medication list: Allergies No Known Drug Allergies Allergy (Verified 01/31/24 11:35) Review of Systems Review of systems same as previous: Yes (no changes) Physical Exam Vital signs obtained and entered by: MIRELLA Ho MA Blood Pressure: 167/77 (RIGHT ARM) Cuff size: long Heart Rate: 76 O2 Saturation: 100 Height: 6 ft (PER PT) Weight: 211 lb 6.4 oz Body Mass Index: 28.6 BMI Classification: Overweight Impression and Plan 1. Obstructive Sleep Apnea-Hypopnea Syndrome, moderate, with good treatment compliance and good apnea control. On CPAP therapy, the patient has better sleep quality and is more rested overall. He has significant improvement of his sleep apnea and is comfortable with CPAP therapy. His only concern is that he would like to try a different style of nasal mask. He is currently using a ResMed N20 and he feels that the headgear is a little too much. He would like to try a nasal cushion with more minimal headgear. I will set him up with a mask refitting for nasal cushion mask with his DME supplier. Patient's apnea se verity and rationale for treatment to reduce apnea, improve sleep quality and reduce cardiovascular and cerebrovascular events was reviewed. I also reviewed the benefit of consistent device use of CPAP for hypertension, depression. 2. Overweight, unspecified. Currently patients BMI is 28.6. Obesity increases the risk of apnea, CPAP pressure requirements and overall health risks especially cardiovascular and diabetes. Thus patient is advised to lose weight. * Continue auto CPAP pressure at 10-14 cmH2O * Mask refitting for nasal cushion mask * Notify me if snoring with mask or feeling that the pressure is too much or too little * Attempt to lose weight * Call this office if any problems using CPAP * Return for follow up in 12 months, or sooner if concerns arise Counseling Topics: Spare mask, Weight loss health impact Prescriptions: Device supplies (with mask refitting) Follow up with Sleep Care in: 1 year Visit Type: In Office Time Spent with Patient (minutes): 20 Provider Statement: I spent 100% of the Face to Face Visit with the patient with greater than 50% spent counseling the patient and coordination of care.
[2024-01-31 12:20] VITALS: BP 167/77; O2SAT 100
== END 2024-01-31 11:32 | disposition home or self-care (01) ==
LOC: SC 11:31
PROVIDERS: ATTEND Nurse Practitioner Family
DX: G47.33 Obstructive sleep apnea (adult) (pediatric) (principal); E66.3 Overweight; Z68.28 Body mass index [BMI] 28.0-28.9, adult; C91.10 Chronic lymphocytic leukemia of B-cell type not having achieved remission; D63.0 Anemia in neoplastic disease
CPT/HCPCS: 36415; 85025; 99213; G0463; 99212